=== PATIENT | female | born 1990 | race Caucasian/White ===

== ENCOUNTER 2020-07-29 20:45 | Emergency (ER) | payer SELFPAY ==
[2020-07-29 20:50] VITALS: BP 118/86; PULSE 91; RESP 20; TEMP 36.8; O2SAT 99
--- NOTE | 2020-07-29 20:53 | ED.NECK ---
HPI - Neck Pain/Injury General Chief Complaint: Neck Pain/Injury Stated Complaint: neck pain Time Seen by Provider: 07/29/20 21:05 Source: patient Mode of arrival: ambulatory Limitations: no limitations History of Present Illness HPI Narrative: 29-year-old woman comes in today complaining of left ear, jaw and neck pain that started approximately 1 week ago. Patient states that she also has no hearing in her left ear. She denies injury, fever, cough, sore throat, cold symptoms, vertigo, swelling, vomiting or injury. She states that she took some leftover cephalexin for a few days but that did not seem to help her symptoms. Patient states she has numbness of her ear canal since a child injury. her reaction to amoxicillin was a stomach ache. She denies having rash, wheezing, throat swelling, difficulty breathing or vomiting. MD complaint: neck pain Onset (ago): week(s) (1) Severity: moderate Quality: dull and aching Duration: constant Relieving factors: none Exacerbating factors: none Associated symptoms: none Treatments prior to arrival: ibuprofen and other ( Antibiotics) Related Data Allergies Allergy/AdvReac Type Severity Reaction Status Date / Time amoxicillin [From Amoxil] Allergy Unknown Verified 07/29/20 21:03 Review of Systems Constitutional: Constitutional: Denies chills, Denies fever(s) and Denies weakness ENT: Denies dysphagia, Denies nasal congestion and Denies sore throat Cardiovascular: Cardiovascular: Denies chest pain and Denies radiating jaw, neck or arm pain Respiratory: Respiratory: Denies cough and Denies dyspnea Gastrointestinal: Gastrointestinal: Denies abdominal pain and Denies vomiting Musculoskeletal: Musculoskeletal: Denies arthralgias and Denies joint swelling Integumentary/Breasts: Skin/Breast: Denies pruritus, Denies erythema and Denies rash Neurologic: Denies vertigo, Denies dizziness and Denies syncope [facility] Past Medical History Medical History (Updated 07/29/20 @ 21:22 by Evan Moore MD) History of cervical cancer Social History Social History (Updated 07/29/20 @ 21:23 by Evan Moore MD) Smoking status: Never smoker Alcohol intake: current Alcohol use details: occasionally Substance use: never Living arrangements: with family Exam Const: General: healthy appearing and alert Orientation/consciousness: patient oriented x3 Limitations: no limitations Other: mild acute distress. HENMT: Head: normal to inspection Ears: external ears normal, EAC's normal and TM abnormal bulging ( Serous effusion.) on the left Mouth: Yes moist mucous membranes Throat: posterior oropharynx normal Eyes: Conjunctivae: conjunctivae normal Pupils: Equal, round and reactive pupils present EOM: EOMs intact bilaterally Neck: Neck: normal visual inspection Other: Small, mildly tender upper anterior cervical lymph nodes that are mobile Resp: Effort & Inspection: normal respiratory effort and not labored Auscultation: clear to auscultation bilaterally, no rales, no rhonchi and no wheezes Cardio: Rate: regular rate Rhythm: regular rhythm Heart sounds: no murmurs Skin: General skin exam: normal color, no jaundice and no pallor Rashes: no rashes Neuro: General: patient oriented x3, moves all extremities and CN's II-XI intact bilaterally Speech: normal speech Gait exam (Neuro): Normal gait present Extrem: General: normal to inspection and no clubbing, cyanosis or edema Psych: Appearance: grossly normal and well kempt Mental Status: mental status grossly normal Affect: normal affect Attitude: cooperative Thought content: Yes Normal thought content present Course Vital Signs Vital signs: Vital Signs Temperature 36.8 C 07/29/20 20:50 Pulse Rate 91 07/29/20 20:50 Respiratory Rate 20 07/29/20 20:50 Blood Pressure 118/86 07/29/20 20:50 Pulse Oximetry 99 07/29/20 20:50 Temperature 36.8 C 07/29/20 20:50 Pulse Rate 91 07/29/20 20:50
[2020-07-29 21:18] VITALS: TEMP 37.1
== END 2020-07-29 21:19 | disposition home or self-care (01) ==
PROVIDERS: Emergency Provider Emergency Medicine; PCP Family Medicine
DX: H65.02 Acute serous otitis media, left ear (principal)
CPT/HCPCS: 99283

== ENCOUNTER 2023-03-14 22:59 | Emergency (ER) | payer OTHER, SELFPAY ==
[2023-03-14 23:12] VITALS: BP 123/91; PULSE 82; RESP 18; TEMP 37.1; O2SAT 100
--- NOTE | 2023-03-14 23:35 | ED.BACK ---
HPI - Back Pain/Injury General Chief Complaint: Back Pain/Injury Stated Complaint: lower flank pain Time Seen by Provider: 03/14/23 23:12 Source: patient Mode of arrival: ambulatory Limitations: no limitations History of Present Illness HPI Narrative: This is a 32-year-old female who presents with mid back pain with no known injuries no shortness of breath no nausea vomiting no flank pain or abdominal pain no shortness of breath no audible wheezing no chest pain. Pain in her midback is reproducible with palpation with no no radiation of her pain no numbness or tingling. Patient does have a small child and is quite a bit of lifting which exacerbated her midback pain. MD elicited complaint: back pain Onset (ago): day(s) Timing: intermittent Severity: moderate Pain scale (0-10): 6 Quality: aching and spasming Location: thoracic spine Radiation: none Exacerbating factors: movement Relieving factors: immobilization Context: while lifting, turning/twisting and bending Related Data Allergies Allergy/AdvReac Type Severity Reaction Status Date / Time amoxicillin [From Amoxil] Allergy Unknown Verified 07/29/20 21:03 Review of Systems Review of Systems: All systems reviewed & are unremarkable except as noted in HPI and below PMFSH Past Medical History Medical History History of cervical cancer Social History Social History Smoking status: Never smoker Alcohol intake: current Alcohol use details: occasionally Substance use: never Living arrangements: with family Exam Const: General: healthy appearing Nutritional Appearance: well nourished Orientation/consciousness: patient oriented x3 Limitations: no limitations HENMT: Head: normal to inspection Eyes: Conjunctivae: conjunctivae normal Pupils: Equal, round and reactive pupils present Neck: Neck: normal visual inspection Chest: Chest palpation & inspection: normal inspection of the chest Resp: Effort & Inspection: normal respiratory effort Auscultation: clear to auscultation bilaterally Cardio: Rate: regular rate Rhythm: regular rhythm GI: GI Palp: Yes Soft to palpation Back/Spine/Pelvis: Back: no CVA tenderness Skin: General skin exam: normal color Rashes: no rashes Neuro: General: patient oriented x3 Cranial nerves: Yes Nystagmus not present Speech: normal speech Extrem: Other: Midback pain reproducible with palpation Psych: Mental Status: mental status grossly normal Course Course Emergency Course: patient received IM Toradol and muscle relaxer IM patient's pain level has improved. Vital Signs Vital signs: Vital Signs Temperature 37.1 C 03/14/23 23:12 Pulse Rate 82 03/14/23 23:12 Respiratory Rate 18 03/14/23 23:12 Blood Pressure 123/91 H 03/14/23 23:12 Pulse Oximetry 100 03/14/23 23:12 Oxygen Delivery Room Air 03/14/23 23:12 Temperature 37.1 C 03/14/23 23:12 Pulse Rate 82 03/14/23 23:12 Respiratory Rate 18 03/14/23 23:12 Blood Pressure 123/91 H 03/14/23 23:12 Pulse Oximetry 100 03/14/23 23:12 Oxygen Delivery Room Air 03/14/23 23:12 Critical Care Time Critical Care Time Critical Care Time: No Discharge Plan Discharge Clinical Impression: Strain of lumbar region Patient Disposition: Home, Self-Care Condition: Stable Instructions: Antibiotic Form, Thoracic Back Strain (ED) Additional Instructions: Take medicine as prescribed and follow up with primary if symptoms persist or worsen. Prescriptions: New naproxen 500 mg tablet 500 mg PO BID PRN (Reason: pain) Qty: 14 0RF cyclobenzaprine 5 mg tablet 5 mg PO TID PRN (Reason: muscle spasm) Qty: 20 0RF Follow-up/Referrals: Shirley,MD Delmar [Primary Care Provider] - Time of Disposition: 23:40
[2023-03-14] MEDS: KETOROLAC (*BKC) 60 MG/2 ML VIAL IM (23:36)
[2023-03-14] MEDS: ORPHENADRINE CITRATE 30 MG/ML 2 ML VIAL 60 MG IM (23:36)
[2023-03-15 00:05] VITALS: BP 103/79; PULSE 74; RESP 18; TEMP 36.8; O2SAT 99
== END 2023-03-15 00:06 | disposition home or self-care (01) ==
PROVIDERS: Emergency Provider Emergency Medicine; PCP Family Medicine
DX: S39.012A Strain of muscle, fascia and tendon of lower back, initial encounter (principal); X50.0XXA Overexertion from strenuous movement or load, initial encounter
CPT/HCPCS: 96372; 99284; J1885; J2360

== ENCOUNTER 2023-04-07 20:49 | Emergency (ER) | payer OTHER, SELFPAY ==
--- NOTE | ~2023-04-07 | CT_ITS ---
EXAMINATION: CT abdomen pelvis wo con DATE: 04/07/2023 21:49 INDICATION: Abdominal bloating. Diarrhea. TECHNIQUE: Computed tomography (CT) of the abdomen and pelvis was performed without intravenous contr ast. Automated exposure control and iterative reconstruction technique were employed. The dose-length product was 319.60 mGy-cm. COMPARISON: None. FINDINGS: The visualized portions of the lung bases are clear without pneumonia or pleural effusion. The heart size is normal. No pericardial effusion. The liver and spleen are normal. The gallbladder i s contracted. The pancreas, adrenal glands, and kidneys are normal. There are no dilated loops of bow el. The appendix is not visualized. There are no pathologically enlarged lymph nodes. There is no lisa e intraperitoneal fluid. There is mild thoracic spondylosis. IMPRESSION: 1. No etiology for the patient's symptoms. Reviewed, dictated and finalized at location E.
[2023-04-07 20:53] VITALS: BP 129/90; PULSE 70; RESP 20; TEMP 37.2; O2SAT 100
--- NOTE | 2023-04-07 21:16 | ED.GENADULT ---
HPI - General Adult General Chief complaint: Unspecified Stated complaint: Abd Bloating Time Seen by Provider: 04/07/23 20:53 Source: patient Mode of arrival: ambulatory Limitations: no limitations History of Present Illness HPI narrative: patient is a 32-year-old female with abdominal bloating and distended lower abdomen for the past week. She has associated abdominal pain which started yesterday in the right upper quadrant. And for the past week she has also had some nausea. Onset (ago): week(s) (1) Location: abdomen Radiation: non-radiation Severity: mild and moderate Severity scale (1-10): 4 Quality: aching and sharp Pain Consistency: intermittent Relieving factors: none Exacerbating factors: none Associated symptoms: nausea/vomiting Treatments prior to arrival: none Related Data Home Medications Medication Instructions Recorded Confirmed No Home Medications 04/07/23 04/07/23 Allergies Allergy/AdvReac Type Severity Reaction Status Date / Time amoxicillin [From Amoxil] Allergy Unknown Verified 07/29/20 21:03 Review of Systems Review of Systems: All systems reviewed & are unremarkable except as noted in HPI and below Constitutional: Constitutional: Reports no additional constitutional complaints Eyes: Eyes: Reports no additional eye complaints ENT: Reports system reviewed and no additional complaints, except as documented Cardiovascular: Cardiovascular: Reports no additional cardiovascular complaints Respiratory: Respiratory: Reports no additional respiratory complaints Gastrointestinal: Gastrointestinal: Reports no additional gastrointestinal complaints Genitourinary: Genitourinary: Reports no additional female genitourinary complaints Musculoskeletal: Musculoskeletal: Reports no additional musculoskeletal complaints Integumentary/Breasts: Skin/Breast: Reports system reviewed and no additional complaints, except as docu Neurologic: Reports system reviewed and no additional complaints, except as documented Psychiatric: Psychiatric: Reports no additional psychiatric complaints Endocrine: Endocrine: Reports no additional endocrine complaints Hematologic/Lymphatic: Hematologic/Lymphatic: Reports no additional hematologic/lymphatic complaints Allergic/Immunologic: Allergic/Immunologic: Reports no additional allergic/immunologic complaints [facility] Past Medical History Medical History History of cervical cancer Social History Social History Smoking status: Never smoker Alcohol intake: current Alcohol use details: occasionally Substance use: never Living arrangements: with family Exam Const: General: cooperative, healthy appearing and comfortable HENMT: Head: normal to inspection, No palpable skull fracture present and normocephalic Eyes: General: appearance normal, both eyes and all related structures Visual Reynaga: normal visual reynaga by confrontation Alignment and Position: alignment normal Neck: Neck: normal visual inspection, full ROM and no lymphadenopathy Chest: Chest palpation & inspection: normal inspection of the chest and normal palpation of entire chest wall Resp: Effort & Inspection: normal respiratory effort and able to speak in complete sentences Auscultation: clear to auscultation bilaterally Cardio: Jugular venous distension: no JVD Palpation: normal PMI Rate: regular rate Rhythm: regular rhythm Heart sounds: S1 normal heart sound present and S2 normal heart sound present GI: Inspection: abnormal to inspection, no abdominal wall ecchymosis, distended, striae and other ( distended abdomen with some striae) GI Palp: Yes abdominal tenderness ( Right upper quadrant; negative Thornton sign), No Abdominal aortic bruit present, No Hepatomegaly present and No Splenomegaly present Auscultation: normal bowel sounds Back/Spine/Pelvis: Back: no CVA tenderne
[2023-04-07 21:25] LABS: Basophils Absolute Auto 0.01 K/mm3 (0.00-0.10); Basophils Percent Auto 0.1 % (0.0-1.0); Eosinophils Absolute Auto 0.12 K/mm3 (0.02-0.50); Eosinophils Percent Auto 1.5 % (1.0-6.0); Hematocrit 40.7 % (35.0-49.0); Hemoglobin 13.3 g/dL (12.0-15.0); Immature Granulocyte Absolute 0.02 K/mm3 (0.00-0.00); Immature Granulocyte Percent A 0.2 % (0.0-0.0); Lymphocytes Absolute Auto 2.98 K/mm3 (1.10-4.50); Lymphocytes Percent Auto 37.2 % (18.0-42.0); Mean Corpuscular HGB Conc 32.7 g/dL (32.0-36.0); Mean Corpuscular Hemoglobin 28.4 pg (27.0-31.0); Mean Corpuscular Volume 86.8 fL (78.0-102.0); Mean Platelet Volume 9.7 fl (9.2-11.8); Monocytes Absolute Auto 0.56 K/mm3 (0.10-0.90); Neutrophils Absolute Auto 4.3 K/mm3 (1.7-7.2); Platelet Count Result 340 K/mm3 (150-420); Red Blood Count 4.69 M/mm3 (4.20-5.40); Red Cell Distribution Width 12.6 % (11.6-14.4)
[2023-04-07 21:26] LABS: Appearance Urine Clear (Clear); Bilirubin Urine Negative (Negative); Blood Urine Negative (Negative); Color Urine Light Yellow (Yellow); Glucose Urine UA Negative (Negative); Ketones Urine Negative (Negative); Leukocyte Esterase Ur Negative LEU/UL (Negative); Nitrate Urine Negative (Negative); Protein Urine Negative (Negative); Specific Grav Ur <= 1.005 (1.010-1.020); Urobilinogen Urine 0.2 mg/dL (0.2-1.0)
[2023-04-07 21:27] LABS: Add Urine Microscopic? NO
[2023-04-07 21:29] LABS: Pregnancy On Board Control Y; Urine Pregnancy Test Negative
[2023-04-07 21:40] LABS: Alanine Aminotransferase 14 U/L (14-59); Albumin Level 3.7 g/dL (3.4-5.0); Alkaline Phosphatase 85 U/L (46-116); Anion Gap 9 mmol/L (8-16); Aspartate Amino Transferase < 10 U/L (15-37); Bilirubin,Total 0.2 mg/dL (0.00-1.00); Blood Urea Nitrogen 14 mg/dL (7-18); Calcium 9.6 mg/dL (8.5-10.1); Carbon Dioxide 28 mmol/L (21-32); Chloride 103 mmol/L (98-108); Estimated CRCL calculation 80 ml/min; Estimated Glomerular Filt Rate > 60; Glucose 95 mg/dL (70-99); Lipase 40 U/L (16-77); Osmolality Calculated 290 mOsm/kg (285-295); Potassium 3.9 mmol/L (3.5-5.1); Sodium 140 mmol/L (136-145); Total Protein 6.9 g/dL (6.4-8.2)
[2023-04-07 21:47] LABS: INR 0.9; Partial Thromboplastin Time 27.5 SEC (23.90-30.70); Prothrombin Time 10.2 Seconds (9.50-12.10)
[2023-04-07 22:20] VITALS: BP 129/88; PULSE 72; RESP 20; TEMP 36.6; O2SAT 98
== END 2023-04-07 22:23 | disposition home or self-care (01) ==
PROVIDERS: Emergency Provider Emergency Medicine; PCP Family Medicine
DX: R10.11 Right upper quadrant pain (principal); Z85.41 Personal history of malignant neoplasm of cervix uteri
CPT/HCPCS: 36415; 74176; 80053; 81003; 81025; 83690; 85025; 85610; 85730; 99284

== ENCOUNTER 2024-11-07 18:04 | Emergency (ER) | payer BC, MEDICAID, SELFPAY ==
--- NOTE | ~2024-11-07 | XR_ITS ---
CHEST RADIOGRAPH, PA AND LATERAL CLINICAL HISTORY: FEVER, dizzy, 2 weeks ago . COMPARISON: None available TECHNIQUE: PA and lateral views of the chest. FINDINGS The cardiomediastinal silhouette is unremarkable. The lungs are clear. IMPRESSION: No focal infiltrate or effusion. Reviewed, dictated and finalized at location A.
[2024-11-07 18:04] VITALS: BP 107/85; PULSE 117; RESP 17; TEMP 36.4; O2SAT 97
--- OUTSIDE RECORDS SUMMARY | 2024-11-07 18:06 | XMS_ITS | Clinical Summary ---
Author Organization [facility] Address [address] [place] [id number] Care Team Providers Care Sales And Production Manager Name Role Phone Delmar Watson MD Primary Care Provider Allergies Active Allergy Reactions Criticality Noted Date Comments Hydrocodone-Acetaminophen Nausea Only 9 tired Medications polyethylene glycol (GLYCOLAX) packet Take 240 mLs (17 g total) by mouth daily for 14 days. Dissolve powder in 240 mL water 14 packet 5 11/10/19 25 Active Ferrous Gluconate (FERGON) 240 (27 Fe) MG Tab Take by mouth 10/27/19 25 Discontinue d(Stop Taking at Discharge) vitamin D2, ergocalciferol, (DRISDOL) 1.25 mg capsule Take 1 capsule (1.25 mg total) by mouth. 10/27/19 25 Discontinue d(Stop Taking at Discharge) multi vitamin/mineral s (THERA-M ENHANCED) tablet Take 1 tablet by mouth daily. 10/27/19 25 Discontinue d(Stop Taking at Discharge) vitamin, low iron, ( VITAMIN WITH IRON) 27-0.8 MG tablet Take 1 tablet by mouth daily. 10/27/19 25 Discontinue d(Stop Taking at Discharge) docusate sodium (COLACE) 100 MG capsule Take 1 capsule (100 mg total) by mouth 2 (two) times daily for 10 days. 20 capsule 5 11/06/19 25 acetaminophen (TYLENOL) 325 MG tablet Take 2 tablets (650 mg total) by mouth every 6 (six) hours as needed for Pain. 60 tablet 5 11/06/19 25 ketorolac (TORADOL) 10 MG tablet Take 1 tablet (10 mg total) by mouth every 6 (six) hours as needed for Pain. 12 tablet 5 10/30/19 25 Active Problems Problem Noted Date Diagnosed Date ([facility]) 10/24/2024 Encounters Date Type Department Care Team Description 10/24/2024 2:53 PM CDT Anesthesia Event [facility] Labor & Delivery [address] [place] [address] Sal Montejo MD 10/24/2024 2:00 PM CDT - 10/24/2024 3:13 PM CDT Surgery [facility] Labor & Delivery [address] [place] [address] Monalisa Cid MD SECTION 10/24/2024 12:03 PM CDT - 10/26/2024 2:13 PM CDT Hospital Encounter [facility] Women & Infants [address] [place] [address] Monalisa Cid MD Discharge Disposition: Home or Self Care (Routine Discharge) 10/24/2024 Travel 08/29/2024 10:57 AM LAWN CARE TECHNICIAN - 08/29/2024 12:39 PM LAWN CARE TECHNICIAN Hospital Encounter [facility] [address] [facility] [place] [address] Guanakito Bangura MD Discharge Disposition: Home or Self Care (Routine Discharge) from Last 3 Months Social History Tobacco Use Types Packs/Day Years Used Date Smoking Tobacco: Former Cigarettes Q uit: 02/06/2019 Smokeless Tobacco: Never Tobacco Cessation:Counseling Given: Not Answered Alcohol Use Standard Drinks/Week Comments No 0 (1 standard drink = 0.6 oz pur e alcohol) AUDIT-C Answer Date Recorded Frequency of Alcohol Consumption Never 02/10/2019 Average Number of Drinks Not on file 019 Frequency of Binge Drinking Not on file 02/2019 Depression Answer Date Recor ded Last EPDS Total Score 0 10/26/2024 Last EPDS Self Harm Result Never 10/26 Comments No Sex and Gender Information Value Date Recorded Sex Assigned at Female 2024 6:18 AM LAWN CARE TECHNICIAN Legal Sex Female 10:12 PM LAWN CARE TECHNICIAN Gender Identity Female 10/24/2024 1:57 PM CDT Sexual Orientation Not on file Last Filed Vital Signs Vital Sign Reading Time Taken Comments Blood Pressure 90/51 10/26/2024 1:02 PM CDT Pulse 83 10/26/2024 1:02 PM CDT Temperature 35.9 C (96.6 F) 10/26/2024 1:03 PM CDT Respiratory Rate 18 10/26/2024 1:03 PM CDT Oxygen Saturation 98% 10/26/2024 1:03 PM CDT Inhaled Oxygen Concentration - - Weight 87.5 kg (193 lb) 10/24/2024 1:54 PM CDT Height 165.1 cm (5' 5 ) 10/24/2024 1:54 PM CDT Body Mass Index 32.12 10/24/2024 1:54 PM CDT Plan of Treatment Health Maintenance Due Date Last Done Comments Cervical Cancer Screening Pap Smear (Age 30 to 64) Every 3 Years 1992 Annual Physical 1995 Hepatitis B Vaccines (1 of 3 - 19+ 3-dose series) 2011 Cervical Cancer Screening Pap with HPV Testing (Age 30 to 64) Every 5 Years 2022 Cervical Cancer Screening with HPV 2022 COVID-19 Vaccine ( season) 2024 DTaP, Tdap and Td Vaccines (3 - Td or Tdap) 03/17/2032 03/17/2022, 08/17/1996, 08/13/1993, Additional history exists Hepatitis C Completed 12/24/2021 HPV Vaccines Aged Out No longer eligi ble based on patient's age to complete this topic Meningococcal B Vaccine Aged Out No l onger eligible based on patient's age to complete this topic Meningococcal Vaccine Aged Out No edelmira rebecca eligible based on patient's age to complete this topic Pneumococcal Vaccine: Pediatrics (0 to 5 Years) and At-Risk Patients (6 to 49 Years) Aged Out No longer eligible based on patient's age to complete this topic RSV Immunizations Under 20 Months Aged Out No longer eligible based on patient's age to complete this topic Procedures Procedure Name Priority Date/Time Associated Diagnosis Comments CBC, AUTO, NO DIFF Routine 10/25/2024 5: 38 AM CDT RHOGAM Routine 10/24/2024 6:5 1 PM CDT AN SPINAL Routine 10/24/2024 3:01 PM CDT SECTION 10/24/2024 2:53 PM CDT PRGNANCY - REPEAT C/SECTION @ 39W2 TYPE & SCREEN STAT 10/24/2024 12:54 PM CDT SYPHILIS AB (DIAGNOSTIC) WITH CASCADING REFLEX STAT 10/24/2024 12:54 PM CDT CBC W/DIFF AUTOMATED Routine 10/24/2024 12:54 PM CDT PLACENTAL ALPHA MICROGLOBULIN-1 Routine 08/29/2024 11:22 AM LAWN CARE TECHNICIAN Trauma during (HHS/HCC) HC URINALYSIS AUTO W/MICRO STAT 08/29/2024 11:13 AM LAWN CARE TECHNICIAN Trauma during ([facility]/HCC) from Last 3 Months Results * (ABNORMAL) CBC, AUTO, NO DIFF (10/25/2024 5:38 AM CDT) WBC 10.29 4.00 - 10.80 x10'3/uL 10/25/2024 5:56 AM CDT [facility] RBC 3.56(L) 4.10 - 5.40 x10'6/uL 10/25/2024 5:56 AM CDT [facility] HGB 9.3(L) 12.0 - 16.0 G/DL 10/25/2024 5:56 AM CDT [facility] HCT 29.6(L) 36.0 - 47.0 % 10/25/2024 5:56 AM CDT [facility] MCV 83.1 78.0 - 100.0 FL 10/25/2024 5:56 AM CDT [facility] MCH 26.1(L) 27.0 - 31.0 PG 10/25/2024 5:56 AM CDT [facility] MCHC 31.4(L) 33.0 - 36.0 G/DL 10/25/2024 5:56 AM CDT [facility] RDW 16.4(H) 11.5 - 14.5 % 10/25/2024 5:56 AM CDT [facility] PLT 220 150 - 350 x10'3/uL 10/25/2024 5:56 AM CDT [facility] MPV 11.3(H) 7.4 - 10.4 FL 10/25/2024 5:56 AM CDT [facility] 10/25/2024 5:38 AM CDT Rachelle Márquez MD LABORATORY Final Result Performing Organization Address City/[facility] Co de Phone Number [facility] [address] [place] [address], [phone] * RHOGAM (10/24/2024 6:51 PM CDT) [facility] ESTIMATED VOL NEGATIVE - 300 mcg OF Rh IMMUNE GLOBULIN INDICATED. 10/24/2024 7:38 PM CDT [facility] BB COMMENT [id number] RN, 10/24/2024 @ 19:28, DSQ 10/24/2024 7:38 PM CDT [facility] 10/24/2024 6:51 PM CDT Monalisa Cid MD BLOOD BANK PRODUCT ORDER LUIS Final Result Performing Organization Address [facility] Co de Phone Number [facility] [address] [place] [address], [phone] * Spinal Block (10/24/2024 3:01 PM CDT) Narrative Marjorie Culp CRNA - 10/24/2024 3:01 PM CDT Marjorie Culp CRNA 10/24/2024 3:32 PM Spinal Block Patient location during procedure: OR Start time: 10/24/2024 3:01 PM End time: 10/24/2024 3:08 PM Reason for block: primary anesthetic Staffing Performed: ENT PHYSICIAN Anesthesiologist: Sal Montejo MD Resident/ENT PHYSICIAN: Marjorie Culp CRNA Performed by: Marjorie Culp CRNA Authorized by: Sal Montejo MD Preanesthetic Checklist Completed: patient identified, IV checked, site marked, risks and benefits discussed, surgical consent, monitors and equipment checked, pre-op evaluation and timeout performed Spinal Block Patient position: sitting Prep: ChloraPrep Sterility prep: cap, drape, gloves, gown, hand hygiene and mask Sedation level: no sedation Patient monitoring: blood pressure, continuous pulse oximetry and heart rate Approach: midline Location: L3-4 Injection technique: single-shot Needle Needle type: pencil-tip Needle gauge: 25 G Needle length: 3.5 in Assessment Sensory level: T4 Number of attempts: 1 Procedure assessment: patient tolerated procedure well with no immediate complications Additional Notes All spinal needles, stylets, and introducer used were accounted for and disposed of at the end of the procedure. Sal Montejo MD [place] ANESTHESIA Final Result * SYPHILIS IGG/IGM AB (10/24/2024 12:54 PM CDT) SYPHILIS IGG IGM AB NON-REACTI VE NON-REACTI VE 10/24/2024 6:19 PM CDT [facility] Comment: No serologic evidence of syphilis. No follow-up necessary unless clinically indicated. 10/24/2024 12:5 4 PM CDT Rachelle Márquez MD LABORATORY Final Result [facility] [address] [place] [address], [phone] * TYPE & SCREEN (10/24/2024 12:54 PM CDT) [facility] ABO/RH O NEGATIVE 10/24/2024 2:31 PM CDT [facility] ANTIBODY SCREEN NEGATIVE 10/24/2024 2:31 PM CDT [facility] SAMPLE EXPIRATION 10/27/2024,235 9 10/24/2024 1:52 PM CDT [facility] BB COMMENT PATIENT HAS PREVIOUS ANTIBODY HISTORY WITH CURRENT NEGATIVE SCREEN. COMPATIBLE BLOOD WILL TAKE EXTRA TIME TO PREPARE. PATIENT IS AN RH IMMUNE GLOBULIN CANDIDATE 10/24/2024 4:39 PM CDT [facility] 10/24/2024 12:5 4 PM CDT us Rachelle Márquez MD BLOOD BANK TEST ORDERABLES F inal Result [facility] [address] [place] [address], [phone] * (ABNORMAL) CBC W/DIFF AUTOMATED (10/24/2024 12:54 PM CDT) [facility] WBC 7.44 4.00 - 10.80 x10'3/uL 10/24/2024 2:06 PM CDT [facility] RBC 4.31 4.10 - 5.40 x10'6/uL 10/24/2024 2:06 PM CDT [facility] HGB 11.2(L) 12.0 - 16.0 G/DL 10/24/2024 2:06 PM CDT [facility] HCT 35.4(L) 36.0 - 47.0 % 10/24/2024 2:06 PM CDT [facility] MCV 82.1 78.0 - 100.0 FL 10/24/2024 2:06 PM CDT [facility] MCH 26.0(L) 27.0 - 31.0 PG 10/24/2024 2:06 PM CDT [facility] MCHC 31.6(L) 33.0 - 36.0 G/DL 10/24/2024 2:06 PM CDT [facility] RDW 16.0(H) 11.5 - 14.5 % 10/24/2024 2:06 PM CDT [facility] PLT 248 150 - 350 x10'3/uL 10/24/2024 2:06 PM CDT [facility] MPV 11.2(H) 7.4 - 10.4 FL 10/24/2024 2:06 PM CDT [facility] DIFFERENTIAL TYPE AUTOMATED DIFFERENTIAL 10/24/2024 2:06 PM CDT [facility] SEG NEUTROPHILS 71.8 % 2:06 PM CDT [facility] LYMPHOCYTES 21.0 % 10/24/2024 2:06 PM CDT [facility] MONOCYTES 5.9 % 10/24/2024 2:06 PM CDT [facility] EOSINOPHILS 0.1 % 10/24/2024 2:06 PM CDT [facility] BASOPHILS 0.3 % 10/24/2024 2:06 PM CDT [facility] IMMATURE GRANS % 0.9 % 10/25/19 2:06 PM CDT [facility] ABS. NEUTROPHILS 5.34 1.60 - 8.30 x10'3/uL 10/24/2024 2:06 PM CDT [facility] ABS. LYMPHOCYTES 1.56 0.80 - 4.70 x10'3/uL 10/24/2024 2:06 PM CDT [facility] ABS. MONOCYTES 0.44 0.00 - 1.50 x10'3/uL 10/24/2024 2:06 PM CDT [facility] ABS. EOSINOPHILS 0.01 0.00 - 0.40 x10'3/uL 10/24/2024 2:06 PM CDT [facility] ABS. BASOPHILS 0.02 0.00 - 0.20 x10'3/uL 10/24/2024 2:06 PM CDT [facility] ABS. IMMATURE GRANULOCYTES 0.07(H) 0.00 - 0.03 x10'3/uL 10/24/2024 2:06 PM CDT [facility] ABS. NUCLEATED RBC'S 0.00 0.00 - 0.01 x10'3/uL 10/24/2024 2:06 PM CDT [facility] NRBC % 0.0 % 10/24/2024 2:06 PM CDT [facility] 10/24/2024 12:5 4 PM CDT Rachelle Márquez MD LABORATORY Final Result Performing Organization Address City/[facility]/ZIP Co de Phone Number [facility] [address] [place] [address], [phone] * PLACENTAL ALPHA MICROGLOBULIN-1 (08/29/2024 11:22 AM LAWN CARE TECHNICIAN) RUPTURE OF MEMBRANES NEGATIVE 08/29/2024 12:03 PM LAWN CARE TECHNICIAN [facility] VAGINAL STRUCTURE / Unknown 08/29/2024 11:22 AM LAWN CARE TECHNICIAN Guanakito Bangura MD BODY FLUIDS AND STOOLS ORDERA BLES Final Result [facility] [address] [place] [address], [phone] * (ABNORMAL) URINALYSIS (08/29/2024 11:13 AM LAWN CARE TECHNICIAN) COLOR (U) YELLOW 08/29/2024 11:53 AM LAWN CARE TECHNICIAN [facility] TRANSPARENCY CLEAR 08/29/2024 11:53 AM LAWN CARE TECHNICIAN [facility] SPECIFIC GRAVITY (U) 1.010 1.000 - 1.025 08/29/2024 11:53 AM LAWN CARE TECHNICIAN [facility] U PH 6.5 5.0 - 8.0 08/29/2024 11:53 AM LAWN CARE TECHNICIAN [facility] LEUKOCYTES (U) NEGATIVE NEGATIVE 08/29/2024 11:53 AM LAWN CARE TECHNICIAN [facility] NITRITES NEGATIVE NEGATIVE 08/29/2024 11:53 AM LAWN CARE TECHNICIAN [facility] PROTEIN RANDOM (U) NEGATIVE NEGATIVE 08/29/2024 11:53 AM LAWN CARE TECHNICIAN [facility] GLUCOSE (U) NEGATIVE NEGATIVE 08/29/2024 11:53 AM LAWN CARE TECHNICIAN [facility] KETONES MG/DL (U) NEGATIVE NEGATIVE 08/29/2024 11:53 AM LAWN CARE TECHNICIAN [facility] UROBILINOGEN 0.2 <1.0 EU/DL 08/29/2024 11:53 AM LAWN CARE TECHNICIAN [facility] BILIRUBIN (U) NEGATIVE NEGATIVE 08/29/2024 11:53 AM LAWN CARE TECHNICIAN [facility] BLOOD (U) NEGATIVE NEGATIVE 08/29/2024 11:53 AM LAWN CARE TECHNICIAN [facility] WBC/HPF NONE SEEN(A) 0 - 5 /HPF 08/29/2024 11:53 AM LAWN CARE TECHNICIAN [facility] EPI/LPF 5-10 /LPF 08/29/2024 11:53 AM LAWN CARE TECHNICIAN [facility] BACTERIA (U) 1+ /HPF 08/29/2024 11:53 AM LAWN CARE TECHNICIAN [facility] URINE SPECIMEN OBTAINED BY CLEAN CATCH PROCEDURE / Unknown 08/29/2024 11:13 AM LAWN CARE TECHNICIAN Guanakito Bangura MD URINE ORDERABLES Final Result [facility] [address] [place] [address], from Last 3 Months Insurance MEDICAID [facility] Advance Directives * Full Code (Latest Code Status on File) Date Activated Date Inactivated Comments 10/24/2024 4:51 PM 10/26/2024 4:18 PM Care Teams Sales And Production Manager Relationship Specialty Start Date End Date Delmar Watson MD [address] [place] [address] [phone] PCP - General FAMILY PRACTICE 01/25/19
--- OUTSIDE RECORDS SUMMARY | 2024-11-07 18:06 | XMS_ITS | Data Portability ---
Author Organization [facility], [address] [facility] ([place]) Address [address] [place] [address] Care Team Providers Care Production Tool Engineer Name Role Phone CLAUDIA PAL Primary Care Provider WES LEYVA Artificial Leather Calender Operator LAIAL MCCLAIN Hand Splitter MONALISA RAMIREZ Artificial Leather Calender Operator Assessment Encounter Date Assessment Date Assessment LastModified by Organization Details LastModified Time 09/27/2024 09/27/2024 1.LAURI: Patient has no OB complaints. Continue PNV QD. Strict labor precautions and strict kick counts were given. RTC in 1 week for LAURI visit with growth ultrasound and GBS swab or sooner if needed. whit Not available 09/27/2024 13:16:32 10/04/2024 10/04/2024 1.LAURI: Patient does complain of some scant dark black discharge with wiping only this morning, patient states that she did have intercourse 3 days ago and did have an episode of diarrhea with nausea and vomiting and GI bug on Thursday and Thursday. She does have a hemorrhoid. She denies any active bleeding, contractions or pain. On sterile speculum examination today the cervix is normal however there is a small 2 to 3 mm polyp noted on the inferior portion of the cervical edge to that vagina that is nonfriable and nontender. There are no cervical masses, lesions. There is no blood, no pooling, no discharge and the cervix is visually closed. There is a small external hemorrhoid noted. On digital examination the cervix is closed/long/high . GBS swab collected today. Patient has no other OB complaints. Growth ultrasound today EFW 40.2%, 2809 g. Continue PNV QD. Strict labor precautions and strict kick counts were given. RTC in 1 week for LAURI visit or sooner if needed. [email or web address] Not available 10/06/2024 12:10:16 10/10/2024 10/10/2024 1.LAURI: Patient complains of intermittent contractions. Cervix is closed/long/high . GBS swab negative. Patient has no other OB complaints. Continue PNV QD. Strict labor precautions and strict kick counts were given. RTC in 1 week for LAURI visit or sooner if needed. [email or web address] Not available 10/10/2024 18:03:29 10/20/2024 10/20/2024 1.LAURI: Patient complains of intermittent contractions. Cervix is closed/long/high . Patient has no other OB complaints. Continue PNV QD. Strict labor precautions and strict kick counts were given. RTC in 1 week for incision check from 10/24 at [facility] or sooner if needed. [email or web address] Not available 10/22/2024 12:02:58 11/01/2024 11/01/2024 1. incision check: - s/p repeat section on 10/24/2024 @ 39 weeks 2 days. - Delivery note, discharge summary and placental pathology discussed with patient. - Patient had a baby les Mishra , weight 7 pounds 13 ounces, Apgars 8/9. - Mom and baby are doing well. - EPDS = 0. Mood is good patient has no homicidal or suicidal ideation. Patient was advised to call 911 if she has homicidal suicidal ideation. Patient voiced understanding. - Patient is meeting all of her milestones. - Patient is breast feeding without difficulty. She has no breast complaints. - Pfannenstiel incision healing well. No signs or symptoms of infection or dehiscence. - Glucola 145 with normal 3-hour oral glucose tolerance test. - Pap smear 02/10/2024 negative cytology, negative high-risk HPV.. - GCCT 03/11/2024 negative. - Hep C Screenin03/11/2024 nonreactive. - HPV vaccine series none. - Contraception: Patient is considering Depo versus Nexplanon at her next visit. - Patient counseled on and postoperative precautions and restrictions. Patient voiced understanding. - RTC in 5 weeks for full visit or sooner if needed. [email or web address] Not available 11/01/2024 17:48:51 Plan of Treatment Reminders Order Date Submit Date Provider Last Modified By Organization Details Last Modified Time Details Appointments Post Visit 20.EST 2024 12:40P M Dr. Monalisa Ramirez Not available Not available Not available Lab urinalys is, dipstick 2024 025 [facility]), [address] [place] [address], [phone], 10/20/2024 13:45:25 urinalys is, dipstick [address] [facility] ([place]), [address] [place] [address], [phone], 10/10/2024 14:25:34 urinalys is, dipstick [address] [facility] ([place]), [address] [place] [address], [phone], 10/04/2024 13:46:09 streptoc occus agalacti ae DNA, QL, SIMONA+prob e, vag+rect um 2024 025 [facility], [address] [place] [address], [phone], 10/05/2024 15:29:16 urinalys is, dipstick 2024 025 [facility] ([place]), [address] [place] [address], [phone], 09/27/2024 13:41:26 Referral None recorded . Procedures None recorded . Surgeries None recorded . Imaging None recorded . Medication Orders None recorded . Patient TargetsNo targets recorded. Patient InstructionsNo instructions recorded. Reason for Referral None Reported. Results Created Date Observation Date Name Description Value Unit Range Abnormal Flag Note LastModifiedBy Organization Detail LastModifiedTime 09/14/1909/13/2024 urina lysis , dipst ick Protein Negati ve Not Available [facility] [address] [place] [address], [place], [address], 09/09/2024 10:55:22 09/14/19 25 09/13/2024 urina lysis , dipst ick Glucose Negati ve Not Available [facility] [address] [place] [address], [place], [address], 09/09/2024 10:55:22 09/21/19 25 09/20/2024 urina lysis , dipst ick Protein Negati ve Not Available [facility] [address] [place] [address], [place], [address], 09/15/2024 12:38:26 09/21/19 25 09/20/2024 urina lysis , dipst ick Glucose Negati ve Not Available [facility] [address] [place] [address], [place], [address], 09/15/2024 12:38:26 09/28/19 25 09/27/2024 urina lysis , dipst ick Protein Negati ve Not Available [facility] [address] [place] [address], [place], [address], 09/23/2024 16:15:53 09/28/19 25 09/27/2024 urina lysis , dipst ick Glucose Negati ve Not Available [facility]) [address] [place] [address], [place], [address], 09/23/2024 16:15:53 10/05/19 25 10/05/2024 strep tococ cus agala ctiae DNA, QL, SIMONA+p robe, vag+r ectum group B strep; DNA probe NEGATI VE negati ve No Group B Strep tococ ci (S. agala ctiae ) detec shelby. Testi ng perfo rmed using PCR after PENA broth enric hment . A negat herber resul t does not rule out the possi bilit y of GBS colon izati on. False negat herber resul ts may occur when the GBS jessa ntrat ion in the speci men is below the detec table limit , inter preta tion shoul d consi shauna relev ant clini [facility]ernardo xt. Not Available [facility] [address] [place] [address], [id number], 10/05/2024 15:29:16 10/05/19 25 10/04/2024 urina lysis , dipst ick Protein Negati ve Not Available [facility]) [address] [place] [address], [address], 09/30/2024 15:29:37 10/05/19 25 10/04/2024 urina lysis , dipst ick Glucose Negati ve Not Available [facility] ([place]) [address] [place] [address], [address], 09/30/2024 15:29:37 10/11/19 25 10/10/2024 urina lysis , dipst ick Protein Negati ve Not Available [facility] ([facility]) [address] [place] [address], [place], [address], 10/10/2024 13:13:10 10/11/19 25 10/10/2024 urina lysis , dipst ick Glucose Negati ve Not Available [facility] ([facility]) [address] [place] [address], [address], 10/10/2024 13:13:10 10/21/19 25 10/20/2024 urina lysis , dipst ick Protein Negati ve Not Available [facility]) [address] [place] [address], [address], 10/18/2024 16:11:18 10/21/19 25 10/20/2024 urina lysis , dipst ick Glucose Negati ve Not Available [facility] ([facility]) [address], [place], [address], 10/18/2024 16:11:18 09/01/19 25 08/31/2024 , echoc ardio [facility] [address] [place], [place] [address] [address] Ph: [phone] [email or web address] Echoca rdiogr am Report Name: Lori Bhakta Study Date: 2024 : 1990 6[birth year] Gender : Female Age: 34 yrs Height : 65 in Weight : 190 lb BSA: 1.9 m2 Orderi ng Physic jef: Laila Mcclain Perfor med By: Jackelin Santo ry, RDCS Reason For Study: Tachyc ardia R00.0 Patien t Locati on: CARDIO LOGY Indica tion: 32 weeks pregna nt BP: 124/83 mmHg Interp retati on Summar y Left ventri cular systol ic functi on is normal . Left Ventri cular Ejecti on Fracti on = 62 %. The right ventri cathy is normal in size and functi on. There is trace mitral regurg itatio n. PROCED URE DETAIL S: A comple te transt horaci c echoca rdiogr am was perfor med (2D; M-mode ; spectr al and color flow Dopple r). The study was techni adrian adequa te. LEFT VENTRI CATHY: The left ventri cathy size and wall thickn ess are normal . The left ventri cular mass index is normal when correc shelby for BSA and gender . Left ventri cular systol ic functi on is normal . Left Ventri cular Ejecti on Fracti on = 62 %. The left ventri cular diasto logy is indete rminat e. No region al wall motion abnorm alitie s noted. LEFT ATRIUM /ATRIA L SEPTUM : The left atrial volume index is normal by BSA and gender . No eviden ce for atrial shunti ng by color Dopple r. echode nsity in left atrium likely artifa ctual. consid er furthe r imagin g if clinic ally indica shelby. RIGHT ATRIUM : The right atrial volume index is normal when correc shelby for BSA and gender . RIGHT VENTRI CATHY: TAPSE is normal at 2.2 cm (> or =1.7cm is normal ). The right ventri cathy is normal in size and functi on. AORTIC VALVE: The aortic valve is trilea flet. There is no eviden ce of aortic stenos is. There is no aortic regurg itatio n noted. MITRAL VALVE: There is trivia l mitral valve thicke ethan. There is no mitral valve stenos is. There is trace mitral regurg itatio n. TRICUS PID VALVE: The tricus pid valve leafle ts are thin and pliabl e. There is no tricus pid stenos is. There is trace tricus pid regurg itatio n. Estima shelby right atrial pressu re is 3 mmHg. Due to an incomp lete tricus pid regurg itatio n envelo pe the right ventri cular systol ic pressu re could not be estima shelby. PULMON IC VALVE: The pulmon ic valve is not well visual ized howeve r appear s grossl y normal . There is no pulmon ic valvul ar stenos is. There is trace pulmon ic valvul ar regurg itatio n. ARTERI ES: The sinus( es) of Valsal va measur es 3.1 which is within normal limits when correc shelby for BSA and age. The ascend ing aorta measur es 3.0 cm, which is within normal limits when correc shelby for BSA and gender . The pulmon augusta artery is normal size. VENOUS : The pulmon augusta vein flow patter ns appear normal . The inferi or vena cava is normal in size, with normal respir atory variat ion. PERICA RDIUM/ PLEURA : There is no perica rdial effusi on seen. There is no pleura l effusi on. MMode/ 2D Measur ements IVSd: 0.94 cm LVIDd: 4.3 cm LVIDs: 2.6 cm LVPWd: 0.89 cm LV mass(C )d: 125.6 grams LV mass Index: 64.9 grams/ m2 Ao sinus of Valsal va diam: 3.1 cm Asc Ao: 3.0 cm LVOT diam: 2.1 cm LVOT area: 3.4 cm2 RAd major (vol): 5.1 cm LVAd ap4: 32.4 cm2 LVLd ap4: 8.9 cm EDV(MO D-sp4) : 97.4 ml LVAs ap4: 17.3 cm2 LVLs ap4: 7.5 cm ESV(MO D-sp4) : 33.9 ml EF(MOD -sp4): 65.2 % LVAd ap2: 27.7 cm2 LVLd ap2: 8.6 cm EDV(MO D-sp2) : 76.3 ml LVAs ap2: 16.2 cm2 LVLs ap2: 7.4 cm ESV(MO D-sp2) : 32.1 ml EF(MOD -sp2): 58.0 % EDV(MO D-bp): 87.0 ml ESV(MO D-bp): 33.0 ml EF(MOD -bp): 62.1 % SV(MOD -bp): 54.0 ml SI(MOD -bp): 27.9 ml/m2 TAPSE_ phl: 2.2 cm EDV(MO D-bp) Index: 45.0 ml/m2 LA vol: 47.7 ml LA vol index: 24.6 ml/m2 RA area: 15.4 cm2 RA Volume : 39.3 ml RA Volume Index: 20.3 ml/m2 RVd base: 2.9 cm Dopple r Measur ements MV E max garima: 57.9 cm/sec MV A max garima: 74.9 cm/sec MV E/A: 0.77 MV dec time: 0.13 sec MV dec slope: 445.0 cm/sec 2 AV max: 137.4 cm/sec Ao max P.6 mmHg TABATHA(V, D): 3.1 cm2 LVOT max P.3 mmHg LVOT max: 125.4 cm/sec TV E max garima: 52.6 cm/sec PV max: 100.3 cm/sec PV max P.0 mmHg AV Dimens ionles s Index: 0.91 MV E': 13.9 cm/sec MV E/E' ratio: 4.2 Electr onical ly signed by:Amy Mcclain 2024 07:25 PM cc: Lori Bhakta 2024 US CARDIO ECHO INTERFACE [facility] [address], [place], [address], 09/01/2024 20:26:17 10/11/19 25 10/04/2024 US, obste tric, follo w-up [facility] [address] [place] [address] Teleph one [phone] Name: LORI BHAKTA [id number] Exam Date: 2024 Age: 34 Physic jef: JORDY EMMANUEL MD, RICH MENA : 1990 Examin ation: US OB FOLLOW UP INDICA TION: Growth ultras ound A transa bdomin al ultras ound was perfor med demons tratin g a single intrau terine pregna ncy in the cephal ic presen tation . cardia c activi ty is confir med at 159 (bpm). Baby is active during the course of this ultras ound exam. Breath ing is seen. The placen ta is locate d anteri or. Placen ta previa is not seen. The MVP is 6.48 cm. biomet rics survey shows: BPD of 8.83 cm, consis tent with 35 weeks, 5 days, 39.9 percen tile. Head circum ferenc e is 32.56 cm, consis tent with 36 weeks, 6 days, 31.9 percen tile. Abdomi nal circum ferenc e is 31.86 cm, consis tent with 35 weeks, 5 days 42.7 percen tile. Femur length is 7.02 cm, consis tent with 36 weeks, 0 days, 35.3 percen tile. Estima shelby weight is 2809 grams, or 6lbs 3ozs, consis tent with 40.2 percen tile. Based on biomet rics, this placed the baby at an overal l gestat ional age of 36 weeks, 1 days. IMPRES JEFFERY: 1. Viable intrau terine gestat ion at 36 weeks 1 day in cephal ic presen tation . 2. Estima shelby weight is 2809 grams, which is the 40.2 percen tile by [facility] k biomet ry. See indivi dual measur ements above. 3. Normal amniot ic fluid volume Electr onical ly signed in Beck cribe by: Rich Zaman on:10/10 7:20 AM cc: Page PAGE 1 of NUMPAG ES 1 INTERFACE [facility] [address] [place] [address], [id number], 10/10/2024 08:23:52 Result Notes None recorded. Problems Name Problem SNOMED Code Status Onset Date Resolution Date Notes Provider Name and Address Organization Details Recorded Time Stenosis of cervix 18563555 Active 2023 Wes Leyva MD [address] [place] [address], [address] , [facility] 4 16:23:06 Normal 90252855 Active 2023 Swathi Gonzalez [facility] 4 10:48:12 test positive 564462109 Active 2023 [facility] 4 15:20:14 Antepartu m hemorrhag e 73062940 Active 2023 [facility] 4 16:39:18 84078797 Active 2023 Swathi Gonzalez null, [facility] 4 10:27:38 Gestation period, 6 weeks 53578818 Active 2023 Swathi Gonzalez null, [facility] 4 10:48:07 Nausea and vomiting 97629152 Active 2023 Swathi Gonzalez null, [facility] 4 11:04:48 High risk 33651769 Active 2023 MONALISA RAMIRZE MD [address] [facility], [place], [address] , [facility] 5 12:03:43 RhD negative 513110560 Active 2023 - Rhogam given 04/21 - Rhogam @ 28 weeks, given 08/09 - RH studies PP MONALISA RAMIREZ MD [address] [facility], [place], [address] , [facility] 5 13:46:31 Anxiety 48065662 Active - no meds MONALISA RAMIREZ MD [address] [facility], [place], [address] , [facility] 4 11:31:43 Dipping 923246287 Active - Tobacco cessation advised MONALISA RAMIREZ MD [address] [facility], [place], [address] , [facility] 4 11:32:04 History of loop electrosu rgical excision procedure 14180289031 102 Active - CXL screenig Q2w at 16-24w: CXL 3.24 on 05/17, CXL 3.62cm on 05/27, CXL 3.79cm on 06/10, CXL 25.5 cm on 06/22, referred to MFM - severe cervical scaring on physical exam - Pap 02/10/2024 neg cytology, neg HRHPV - MFM apt 06/30 CXL 25.5-24, no cerclage, started on vaginal progester one MONALISA RAMIREZ MD [address] [facility], [place], [address] , [facility] 5 12:12:17 Past history of section 584690577 Active 2023 - delivery 18 months ago in [facility] confirmed with ROMR to be LTCS at 39w3d 2/2 arrest of dilation with cervical stenosis - ROMR reviewed - RLTCS scheduled [facility] for 10/24/2024 MONALISA RAMIREZ MD [address] [facility], [place], [address] , [facility] 5 12:11:34 Nausea and vomiting in Active 2024 Reglan 5 mg pO Q6H PRN Levi Johnson null, [facility] 5 10:20:31 Normal body mass index 51952038 Active PPBMI 27 MONALISA RAMIREZ MD [address] [place] [address], [address] , [facility] 4 11:34:13 Gestation period, 36 weeks 10958793 Active 2023 [facility] 5 15:29:26 Gestation period, 9 weeks 396743 Active 2023 [facility] 4 09:37:16 RhD negative 479267185 Active 2023 - Rhogam given 04/21 - Rhogam @ 28 weeks, given / - RH studies PP MONALISA RAMIREZ MD [address] [place] [address], [address] , [facility] 5 13:46:31 Gestation period, 13 weeks 01606549 Active 2023 [facility] 4 09:35:27 Abnormal uterine bleeding 30557612741 100 Active 2023 [facility] 4 10:36:23 Bleeding from female genital tract during 93364940308 847088 Active 2023 [facility] 4 10:37:43 Placenta previa 44210145 Active 2023 MONLAISA RAMIREZ MD [address] [place] [address], [address] , [facility] 4 18:51:37 Placenta previa with hemorrhag e 658591804 Active noted on u/s 04/26 Marginal previa 05/17 at 1.6-2cm from OS RESOLVED 05/27 MONALISA RAMIREZ MD [address] [place] [address], [address] , [facility] 4 13:02:33 Placenta previa marginali s 97381956 Active 2023 MONALISA RAMIREZ MD [address] [place] [address], [address] , [facility] 4 13:15:07 Gestation period, 17 weeks 39082204 Active 2023 Swathi Gonzalez null, [facility] 4 15:42:25 Tachycard ia 1578218 Active 2023 [facility] 4 15:30:28 Previous operation to cervix affecting 40417111 Active 2023 MONALISA RAMIREZ MD [address] [place] [address], [address] , [facility] 4 13:00:38 Disorder of placenta 535701298 Active Anterior placenta MONALISA RAMIREZ MD [address] [place] [address], [address] , [facility] 4 13:03:06 Gestation period, 19 weeks 31959263 [facility] 20[facility] 4 15:49:58 Gestation period, 21 weeks 59200495 Active 2023 Swathi Gonzalez null, [facility] 4 17:16:27 Gestation period, 22 weeks 35331182 Active 2023 Swathi Gonzalez null, [facility] 4 14:09:42 Past history of section 802205617 Active 2023 - delivery 18 months ago in [facility] confirmed with ROMR to be LTCS at 39w3d 2/2 arrest of dilation with cervical stenosis - ROMR reviewed - RLTCS scheduled [facility] for 10/24/2024 MONALISA RAMIREZ MD [address] [place] [address], [address] , [facility] 5 12:11:34 Short cervical length in 739468768 Active 2024 MONALISA RAMIREZ MD [address] [place] [address], [address] , [facility] 5 12:10:04 Heartburn 40208437 Active 2024 Levi Johnson null, [facility] 5 12:07:43 Gestation period, 28 weeks 10605822 Active 2024 Swathi Carlos null, [facility] 5 10:33:50 Gestation period, 27 weeks 73999872 Active 2024 Swathi Gonzalez null, [facility] 5 09:15:13 Palpitati ons 33161527 Active 2024 Swathi Carlos null, [facility] 5 09:30:05 Blood glucose outside reference range 518454966 Active 2024 Levi Johnson null, [facility] 5 16:37:16 Hemorrhoi ds in 690717570 Active 2024 MONALISA RAMIREZ MD [address] [place] [address], [address] , [facility] 5 11:49:49 Vasovagal syncope 880178879 Active 2024 - EKG 08/04 sinus ryhtm with non specifi t wave abnormali ties - Cardiolog y consult Dr. Mcclain 08/22 - Echo 08/31 EF 62% with Trace MR MONALISA RAMIREZ MD [address] [place] [address], [address] , [facility] 5 19:22:45 Anemia in mother complicat ing , childbirt h AND/OR puerperiu m 94343064 Active 2024 Swathi Gonzalez null, [facility] 5 17:09:24 Third trimester 87278469 Active 2024 [facility] 5 13:23:06 Requires diphtheri a, tetanus and pertussis vaccinati on 074758028 Active 2024 given 08/09 MONALISA RAMIREZ MD [address] [place] [address], [address] , [facility] 5 13:46:06 Anemia 117477157 Active 2024 MONALISA RAMIREZ MD [address] [place] [address], [address] , [facility] 5 13:50:49 heart disorder 432102072 Active 2024 Swathi Gonzalez [facility] 5 15:14:40 Abnormali ty of organs AND/OR soft tissues of pelvis affecting 6125991 Active 2024 [facility] 5 15:19:37 Pruritus of 899655162 Active 2024 Levi Johnson [facility] 5 15:24:32 Chronic anemia 433890418 Active 2024 - Hgb 10.3 on 08/22 - Iron and colace MONALISA RAMIREZ MD [address] [place] [address], [address] , [facility] 5 14:49:26 Gestation period, 32 weeks 6253240 Active 2024 Sw[facility] 5 15:18:01 Gestation period, 33 weeks 73361316 Active 2024 Sw[facility] 5 10:55:23 Gestation period, 34 weeks 03739277 Active 2024 Swathi kasper, [facility] 5 12:38:10 Pruritic disorder of skin Active 2024 - Bile acids 08/25 of 4.1 MONALISA RAMIREZ MD [address] [place] [address], [address] , [facility] 5 19:23:05 Gestation period, 35 weeks 52933325 Active 2024 Swathi Carlos null, [facility] 5 16:15:41 Nausea and vomiting in Active 2024 [facility] 5 10:20:31 Polyp of vagina 22789686 Active 2024 - 2-3 mm vaginal polyp at edge of cervix and vagina at 6 oclock position MONALISA RAMIREZ MD [address] [place] [address], [address] , [facility] 5 12:14:01 Gestation period, 37 weeks 71299211 Active 2024 Levi Johnson null, [facility] 5 13:12:39 Gestation period, 38 weeks 37090753 Active 2024 [facility] 5 16:10:56 Problem Notes None recorded. Procedures Surgical History Date Name Laterality Status Provider Name and Address Organization Details Recorded Time 09/03/2022 Date of Last Pap Smear completed Jenna Rai [facility] 02/10/2024 15:50:35 Imaging Results Imaging Date Name Status LastModified by Organization Details LastModified Time 08/31/2024 US, echocardiogram completed INTERFACE [facility] [address] [place] [address], [id number], 09/01/2024 20:26:17 10/04/2024 US, obstetric, follow-up completed INTERFACE [facility] [address] [place] [address], [id number], 10/10/2024 08:23:52 Procedure Notes None recorded. Medical Equipment None Reported. Allergies No known drug allergies Medications Name Sig Start Date Stop Date Status Note LastModified by Organization Details LastModified Time Colace 100 mg capsule Take 1 capsule every day by oral route. 2024 active Not Available Not Available Not Avai lable ferrous sulfate 325 mg (65 mg iron) tablet Take 1 tablet every day by oral route. 2024 active Not Available Not Available Not Avai lable Loestrin 1/20 (21) 1 mg-20 mcg tablet Take 1 tablet every day by oral route. 06/10 completed Not Available Not Available Not Available Pepcid 20 mg tablet Take 1 tablet every day by oral route. 2024 active Not Available Not Available Not Avai lable ondansetron 4 mg disintegrat ing tablet Place 1 tablet every 6 hours by transling ual route. 2024 active Not Available Not Available Not Avai lable Reglan 5 mg tablet Take 1 tablet 4 times a day by oral route. 06/10 completed Not Available Not Available Not Available active Not Available Not Avai lable Not Available HyperRHO S/D 250 unit (50 mcg) intramuscul ar syringe Inject 250 units by intramusc ular route. 06/10 completed Not Available Not Available Not Available RhoGAM Ultra-Filte red PLUS 1,500 unit (300 mcg) intramuscul ar syringe INJECT 1.3 U ONCE 2024 active Not Available Not Available Not Avai lable Vitals Date Recorded Body weight Systolic blood pressure Diastolic blood pressure Provider Name and Address Organization Details Last Updated DateTime 09/27/2024 48204.7643 58 g 138 mm[Hg] 88 mm[Hg] Swathi Carlos [facility] 09/27/2024 12:57:55 Date Recorded Body weight Body mass index (BMI) Body height Heart rate Oxygen saturation Oxygen saturation in Arterial blood by Pulse oximetry Systolic blood pressure Diastolic blood pressure Provider Name and Address Organization Details Last Updated DateTime 70134.7 22337 g 31.7 kg/m2 165.1 cm 104 /min 98 % 98 % 132 mm[Hg] 84 mm[Hg] Levi [facility] 5 12:41:19 Date Recorded Body weight Body mass index (BMI) Body height Heart rate Oxygen saturation Oxygen saturation in Arterial blood by Pulse oximetry Systolic blood pressure Diastolic blood pressure Provider Name and Address Organization Details Last Updated DateTime 5 50836.1 94569 g 32 kg/m2 165.1 cm 110 /min 98 % 98 % 124 mm[Hg] 76 mm[Hg] Levi [facility] 5 13:12:17 Date Recorded Body weight Body mass index (BMI) Body height Respiratory rate Systolic blood pressure Diastolic blood pressure Provider Name and Address Organization Details Last Updated DateTime 5 41523.6 89329 g 32.1 kg/m2 165.1 cm 98 /min 128 mm[Hg] 86 mm[Hg] Swathi Gonzalez [facility] 5 13:02:18 Date Recorded Body height Body mass index (BMI) Body weight Heart rate Oxygen saturation Oxygen saturation in Arterial blood by Pulse oximetry Systolic blood pressure Diastolic blood pressure Provider Name and Address Organization Details Last Updated DateTime 5 165.1 cm 29.7 kg/m2 70156.1 6 g 88 /min 98 % 98 % 112 mm[Hg] 76 mm[Hg] [facility] 5 12:18:07 Social History Question Answer Notes LastModified by Nabto Details LastModified Time What Is Your Level Of Alcohol Consumption? None [email or web address] Information not available 02/10/2024 What Is Your Level Of Caffeine Consumption? Moderate [email or web address] Information not available 02/10/2024 How Many Children Do You Have? 5 Information not available 02/10/2024 What Is Your Relationship Status? Single [email or web address] Information not available 02/10/2024 Are You Sexually Active? Yes [email or web address] Information not available 02/10/2024 Do You Use Any Illicit Or Recreational Drugs? No [email or web address] Information not available 02/10/2024 Sex: Unknown Functional Status Question Answer Note LastModified by Nabto Details LastModified Time What is your exercise level? Occasional Information not available 02/10/2024 Mental Status None recorded. Family History Nothing Reported. Medical History No medical history recorded. Gynecological History Statement/Question Response Flow Moderate Date of LMP 01/23/2024 Frequency of Cycle (Q days) 30 Sexually Active? Y Menses Monthly Y HPV Vaccine N Date of Last Pap Smear 09/03/2022 Duration of Flow (days) 5 Current Control Method BCPs Hormone Replacement Therapy N Obstetrics History GPAL:G 7 P 5 0 1 5 Type Value Full Term 5 Spontaneous 1 Living 5 Total 7 Immunizations Vaccine Type Date Status Note Provider Nam e and Address Organization Details Recorded Time Tdap 08/09/2024 completed MONALISA RAMIREZ MD [address] [place] [address], [phone], [facility] 08/09/2024 17:45:46 Past Encounters Encounter ID Performer Location Encounter Start Date Encounter Closed Date Diagnosis/Indication Diagnosis SNOMED-CT Code Diagnosis ICD10 Code Diagnosis Note [id number] Wes Leyva MD [facility] [place] [address] [place] [address] 2 [place] [address] 02/10/2024 15:11:47 02/10/2024 16:37:42 Gynecologic examination 22139988 Z01.419 Exam was normal today. Pap smear was done today. If this does come back insufficie nt due to cervical stenosis then I would have her come back and repeat her Pap smear after dilating her cervix. Additional diagnosis detail: Encounter for gynecologi ashley examinatio n Uses oral contraception 2331127 Z30.41 She will continue her Loestrin control for contracept ion.Additi onal diagnosis detail: Oral contracept herber use Stenosis of cervix 53188 006 N88.2 Additional diagnosis detail: Cervical stenosis (uterine cervix) [id number] MONALISA RAMIREZ MD [facility] [place] [address] [place] [address] 2 [place] [address] 03/11/2024 09:36:05 03/11/2024 13:46:53 screening 742327875 Z36.89 RhD negative 661825417 Z 01.83 Multigravida 249253458 Z 34.81 Additional diagnosis detail: Multigravi da in first trimester High risk 4720 0007 O09.91 Additional diagnosis detail: High-risk in first trimester [id number] MONALISA RAMIREZ MD [facility] [place] [address] [place] [address] 04/01/2024 09:09:26 04/01/2024 10:53:12 Gestation period, 9 weeks 166104 Z3A.09 Genetic test 783148894 Z 13.79 Additional diagnosis detail: Genetic screening High risk 476 O09.91 Additional diagnosis detail: High-risk in first trimester [id number] MONALISA RAMIREZ MD [address] [facility] ([place]) [address] [address] 04/21/2024 12:12:37 04/21/2024 13:22:05 RhD negative 103359106 O26.899 Z67.91 [id number] MONALISA RAMIREZ MD [facility] [place] [address] [place] [address] 04/26/2024 09:21:19 04/26/2024 11:08:22 Second trimester 11742644 Z34.92 Bleeding f rom female genital tract during 9519471960 6440900 O46.90 O46.92 High risk 476 O09.91 Additional diagnosis detail: High-risk in first trimester Placenta previa 47200445 O44.00 [id number] MONALISA RAMIREZ MD [facility] [place] [address] [place] [address] 05/17/2024 09:56:22 05/17/2024 13:21:52 Normal 40497472 Z34.92 Z3A.16 Additional diagnosis detail: Encounter for supervisio n of other normal , first trimesterA dditional diagnosis detail: Cervical os stenosis screening 2437 68139 Z36.86 High risk 4720 0007 O09.92 Additional diagnosis detail: High-risk in first trimester Past pregn saloni history of section 338258514 Z98.891 Placenta p revia marginalis 40716547 O44.20 [id number] MONALISA RAMIREZ MD [facility] [place] [address] [place] [address], [place] [address] 05/27/2024 14:01:55 05/27/2024 16:46:41 Gestation period, 17 weeks 26869685 Z3A.17 Z34.92 Tachycardia 6147244 R00. 0 screening 2437 00371 Z36.89 High risk 4720 0007 O09.92 Additional diagnosis detail: High-risk in first trimester Previous o peration to cervix affecting 68615273 O34.42 Z98.890 [id number] MONALISA RAMIREZ MD [facility] [place] [address] [place] [address] 2 [place] [address] 06/10/2024 14:47:37 06/10/2024 17:28:45 Gestation period, 19 weeks 29089694 Z3A.19 Z34.92 History of loop electrosurgical excision procedure 9052918650 9102 Z98.890 High risk 4720 0007 O09.93 Additional diagnosis detail: High-risk in first trimester [id number] MONALISA RAMIREZ MD [facility] [place] [address] [place] [address] 2 [place] [address] 06/22/2024 09:29:18 06/22/2024 13:50:09 Gestation period, 21 weeks 87980920 Z3A.21 Z34.92 Postproced ural state finding 995461415 Z98.890 High risk 4720 0007 O09.92 Additional diagnosis detail: High-risk in first trimester History of loop electrosurgical excision procedure 8291423924 9102 Z98.890 [id number] MONALISA RAMIREZ MD [facility] [place] [address] [place] [address] 2 [place] [address] 07/08/2024 08:42:00 07/08/2024 11:05:27 High risk 97131745 O09.92 Z3A.23 Additional diagnosis detail: High-risk in first trimester Short cerv ical length in 062569652 O26.879 Previous o peration to cervix affecting 55217723 O34.42 Z98.890 [id number] MONALISA RAMIREZ MD [facility] [place] [address] [place] [address] 08/05/2024 09:03:48 08/05/2024 10:16:20 Gestation period, 27 weeks 65244203 Z3A.27 Z34.92 Palpitations 44674221 R0 0.2 High risk 4720 0007 O09.92 Additional diagnosis detail: High-risk in first trimester Hemorrhoid s in 927709058 O22.40 [id number] MONALISA RAMIREZ MD [facility] [place] [address] [place] [address] 2 [place] [address] 08/09/2024 12:51:21 08/09/2024 14:17:01 Third trimester 64697908 Z34.93 Z3A.28 Requires d iphtheria, tetanus and pertussis vaccination 911049663 Z23 Administra tion of human anti-D immunoglobulin needed 0680044399 Z29.13 screening 2437 78633 Z36.89 High risk 4720 0007 O09.93 Additional diagnosis detail: High-risk in first trimester RhD negative 961420560 O 26.899 Z67.91 Anemia 752208942 O99.01 9 [id number] Laila Mcclain, [facility] [place] [address] [place] [address] 08/22/2024 12:02:00 08/23/2024 04:44:00 Palpitations 61219284 R00.2 67741049 Z33.1 Tachycardia 9186149 R00. 0 Third trim obie 35038838 Z34.93 [id number] MONALISA RAMIREZ MD [facility] [place] [address] [place] [address] 2 [place] [address] 08/25/2024 14:20:39 08/25/2024 17:30:55 Abnormality of organs AND/OR soft tissues of pelvis affecting 1595000 O34.43 Pruritus of 23 6256097 O99.713 L29.9 High risk 4720 0007 O09.93 Additional diagnosis detail: High-risk in first trimester [id number] MONALISA RAMIREZ MD [facility] ([place] [address] [place] [address] 2 [place] [address] 09/13/2024 09:42:44 09/13/2024 11:14:24 Gestation period, 33 weeks 49728690 Z3A.33 Z34.93 High risk 4720 0007 O09.93 Additional diagnosis detail: High-risk in first trimester [id number] MONALISA RAMIREZ MD [facility] [place] [address] [place] [address] 2 [place] [address] 09/20/2024 12:34:22 09/20/2024 14:52:34 Gestation period, 34 weeks 78371702 Z3A.34 Z34.93 High risk 4720 0007 O09.93 Additional diagnosis detail: High-risk in first trimester [id number] MONALISA RAMIREZ MD [facility] [place] [address] [place] [address] 2 [place] [address] 09/27/2024 12:20:00 09/27/2024 14:00:43 Gestation period, 35 weeks 86858366 Z3A.35 Z34.93 High risk 4720 0007 O09.93 Additional diagnosis detail: High-risk in first trimester [id number] MONALISA RAMIREZ MD [facility] [place] [address] [place] [address] 2 [place] [address] 10/04/2024 12:09:19 10/04/2024 14:26:33 Gestation period, 36 weeks 02145355 Z3A.36 Z34.93 Additional diagnosis detail: High-risk in first trimester High risk 4720 0007 O09.93 Additional diagnosis detail: High-risk in first trimester [id number] MONALISA RAMIREZ MD [facility] [place] [address] [place] [address] 2 [place] [address] 10/10/2024 12:32:41 10/10/2024 14:39:58 Gestation period, 37 weeks 50154141 Z3A.37 Z34.83 High risk 4720 0007 O09.93 Additional diagnosis detail: High-risk in first trimester [id number] MONALISA RAMIREZ MD [facility] [place] [address] [place] [address] 10/20/2024 12:46:24 10/20/2024 13:55:48 Gestation period, 38 weeks 29439698 Z3A.38 Z34.93 High risk 4720 0007 O09.93 Additional diagnosis detail: High-risk in first trimester [id number] MONALISA RAMIREZ MD [facility] [place] [address] [place] [address] 11/01/2024 12:07:45 11/01/2024 12:59:38 state 03102620 Z39.2 Past pregn saloni history of section 158125543 Z98.891 Health Concerns Section Related Observation LastModified by Organization Detai ls LastModified Time None Recorded Concern Status LastModified by Organization Details LastModified Time None Recorded Advance Directives Directive None Recorded Payers Encounter Date Sequence Insurance Name Policy Number Policy Hanley Covered Member ID Hanley Member ID Guarantor Name 09/27/2024 2 [place] Eloisa L Nikoali [id number] Eloisa L Nikolai 09/27/2024 1 [place] [id number] Doug Nikolai [id number] Eloisa L Nikolai 10/04/2024 2 [place] [facility] [place] Eloisa L Nikolai [id number] Eloisa L Nikolai 10/04/2024 1 [place] [id number] Doug Nikolai [id number] Eloisa L Nikolai 10/10/2024 2 [place] [place] Eloisa L Nikolai [id number] Eloisa L Nikolai 10/10/2024 1 [place] [id number] Doug Nikolai [id number] Eloisa L Nikolai 10/20/2024 2 [place] [employer] [place] Eloisa L Nikolai [id number] Eloisa L Nikolai 10/20/2024 1 [place] [id number] Doug Menchaca [id number] Eloisa Menchaca 11/01/2024 2 [place] Eloisa Menchaca [id number] Eloisa Menchaca 11/01/2024 1 [place] [id number] Doug Menchaca [id number] Eloisa Menchaca Notes Date Note Type Note Provider Name and Address Organization Details Recorded Time 09/27/2024 text/html Patient has no complaints today. She denies headache, light headedness, dizziness, changes in vision, right upper quadrant/epigastric plain, swelling hands and face, nausea, vomiting, fever, chills, shortness of breath, chest pain, heart palpitations, GI symptoms, symptoms, abdominal pain, leakage of fluid, vaginal bleeding, vaginal discharge and contractions. She has positive movement and denies decreases or changes in movement. MONALISA RAMIREZ MD [address] [place] [address], [phone], [facility] 09/27/2024 13:18:02 10/04/2024 text/html Patient states t hat she had some minimal scant dark black spotting this morning with wiping. Patient denies any active bleeding. She did have intercourse 3 days ago and had an episode of extreme diarrhea nausea and vomiting from Thursday to Thursday. She does have a hemorrhoid that has been bothersome. Patient has no other complaints today. She denies headache, light headedness, dizziness, changes in vision, right upper quadrant/epigastric plain, swelling hands and face, nausea, vomiting, fever, chills, shortness of breath, chest pain, heart palpitations, GI symptoms, symptoms, abdominal pain, leakage of fluid, vaginal bleeding, vaginal discharge and contractions. She has positive movement and denies decreases or changes in movement. MONALISA RAMIREZ MD [address] [place] [address], [phone], [facility] 10/06/2024 12:20:07 10/10/2024 text/html Patient complain s of intermittent contractions. Patient has no other complaints today. She denies headache, light headedness, dizziness, changes in vision, right upper quadrant/epigastric plain, swelling hands and face, nausea, vomiting, fever, chills, shortness of breath, chest pain, heart palpitations, GI symptoms, symptoms, abdominal pain, leakage of fluid, vaginal bleeding, vaginal discharge and regular contractions. She has positive movement and denies decreases or changes in movement. MONALISA RAMIREZ MD [address] [place] [address], [phone], [facility] 10/10/2024 18:07:01 10/20/2024 text/html Patient complain s of intermittent contractions. Patient has no other complaints today. She denies headache, light headedness, dizziness, changes in vision, right upper quadrant/epigastric plain, swelling hands and face, nausea, vomiting, fever, chills, shortness of breath, chest pain, heart palpitations, GI symptoms, symptoms, abdominal pain, leakage of fluid, vaginal bleeding, vaginal discharge and regular contractions. She has positive movement and denies decreases or changes in movement. MONALISA RAMIREZ MD [address] [place] [address], [phone], [facility] 10/22/2024 12:04:13 11/01/2024 text/html [ ] is a rafal regan [ ]-year-old G[ ] P[ ] status post [ ] on [ ] at [ ] secondary to [ ] presents today for visit. Patient states that she is meeting all and postoperative milestones. Patient is doing well postoperatively. She denies swelling pain or redness in a calf or calves. She states that her incisions are healing well. She denies erythema, drainage, pain and dehiscence of her incisions. She is ambulating, tolerating regular diet, voiding spontaneously, and passing gas. She denies heavy vaginal bleeding. She is [ ] feeding, and has no breast complaints. She has no complaints today. She denies headache, changes in vision, lightheadedness, dizziness, right upper quadrant/epigastric pain, nausea, vomiting, fever, chills, vaginal discharge, heavy vaginal bleeding, pelvic pain, abdominal pain, back pain, swelling of calf/calves, GI symptoms and symptoms. Her mood is good, she denies homicidal and suicidal ideation. She has good support at home and is eating and sleeping well. MONALISA RAMIREZ MD [address] [place] [address], [phone], [facility] 11/01/2024 17:49:41 OBGyn Episode Ob Episode Information Episode Created Date Number of Fetuses Patient Bloodtype Patient rh Status Prepregnancy Weight lbs Domestic Partner Domestic Partner Phone Father Name Process Design Engineer Status 03/11/20 24 1 O Negative Doug OPEN Fetus Data First Name Last Name Admitted to NICU Weight (g) Sex Living Outcome Pediatric Complications Fetus ID Race Codes Race Delivery Type false 3543.68 75 F 11344 C/S ( Section) Problems Problem Notes Doug Deliver at H: RLTCS scheduled 10/24/24 DILATE CERVIX AT CSECTION Pediatrition in [place] (unsure of name)Declines flu vaccineGirl, breast feeding, depo or nexplanonGBS negativeGS 10/04 EFW 40.2%, 2809g Problem Name Start Date End Date Resolution Snomed Code Not e Vasovagal syncope 08/06/2024 878091229 - EKG 08/04 sinus ryhtm with non specifi t wave abnormalities- Cardiology consult Dr. Mcclain 08/22- Echo 08/31 EF 62% with Trace MR Requires diphtheria, tetanus and pertussis vaccination 08/09/2024 925539323 given 2/ Chronic anemia 08/27/2024 961383330 - Hg b 10.3 on 08/22- Iron and colace Pruritic disorder of skin 09/17/2024 4379813860 - Bile acids of 4.1 Polyp of vagina 10/06/2024 26929673 - 2 -3 mm vaginal polyp at edge of cervix and vagina at 6 oclock position Anxiety 50121497 - no meds Nausea and vomiting in 10/04/2024 1390729511 Reglan 5 mg pO Q6H PRN RhD negative 04/21/2024 473182854 - Rhog am given 04/21- Rhogam @ 28 weeks, given 08/09- RH studies PP Past history of section 06/30/2024 698513849 - delivery 18 months ago in [facility] confirmed with ROMR to be LTCS at 39w3d 2/ arrest of dilation with cervical stenosis- ROMR reviewed- RLTCS scheduled [facility] for 10/24/2024 Dipping 286959284 - Tobacco cessation advised History of loop electrosurgical excision procedure 34576429863559 - CXL s creenig Q2w at 16-24w: CXL 3.24 on 05/17, CXL 3.62cm on 05/27, CXL 3.79cm on 06/10, CXL 25.5 cm on 06/22, referred to [facility]- severe cervical scaring on physical exam- Pap 02/10/2024 neg cytology, neg HRHPV- MFM apt 06/30 CXL 25.5-24, no cerclage, started on vaginal progesterone Normal body mass index 43392250 PPBMI 27 Placenta previa with hemorrhage noted on u/s 04/26Marginal previa 05/17 at 1.6-2cm from [facility]SR[facility]OL[facility]ED 05/27 Disorder of placenta 139679823 Anterior placenta Fabiano Calculation Initial Fabiano Date Initial Exam Date Initial Exam Provider Initial Ultrasound Date Last Menstrual Period Date Ultra Sound Weeks Gestation 10/29/2024 03/11/2024 03/11/2024 01/23/2024 7 Eighteen To Twenty Week Fabiano Update Ultra Sound Date Fundal Height At Umbil Quickening Date Ultra Sound Latest Weeks Gestation Final Fabiano Confirmed By Final Fabiano Confirmed Date Final Fabiano Date Ultra Sound Latest Days Gestation 0 0 Pre-lianet Flowsheet Flowsheet Date 03/11/2024 Duran Score Blood Edema Fundus Height Fundus Units Glucose Ketones Leukocytes Nitrite Labor Signs Protein Cervic Dilation Cervic Effacement Cervic Station none none none neg 0cm 0% -4 Type Weight in lbs Pre/Post Dialysis Refused Weight 162.789967359481 BP Diastolic BP Location Tested BP Systolic BP Type 78 120 Fetus Heart Rate Present A 136 Present Fetus Movement A No Comments 1. New OB: Patient was congr atulated on and new OB education was completed. New OB education handouts and packet was given today. NOB labs ordered today. Patient counseled on aneuploidy screening, hgb electrophoresis, CF and SMA screening. Pt declines at this time. Handouts given. Patient counseled on flu and COVID vaccine in . Patient declines COVID vaccine and declines flu vaccine. Continue PNV QD. SAB precautions given. RTC in 4 weeks for LAURI visit with ultrasound for heart tones or sooner if needed.2. Prepregnancy BMI 273. Rh negative: Patient had spotting last week, RhoGAM 50 mcg administered today. Patient denies current vaginal bleeding. Rh- status discussed with patient. Recommend RhoGAM at 28 weeks and Rh studies . Patient was advised to notify [facility] immediately of any vaginal bleeding or spotting. Patient voiced understanding.4. History of anxiety: pt is not on medications or in therapy. Mood is good, no HI or SI. Pt was counseled on antepartum and depression and given resources and precautions. Patient declines mood stabilizing medications and therapy at this time. Pt advised to call 911 immediately with HI or SI. Pt VU. Recommend 2 week visit for mood check.5. Tobacco use in : Patient dips tobacco. Maternal and risks of tobacco discussed with patient including but not limited to risk of IUGR, labor, delivery, delivery sequela, IUFD and SIDS. Advise smoking cessation. Patient voiced understanding.6. History of LEEP: Patient had history of LEEP in 2017 for LAINEY-2 and in 2019 for LAINEY-3. Her Pap smear on 02/10/2024 was negative cytology, negative high-risk HPV. Discussed with patient risks of history of LEEP in including history of shortened cervix, delivery, labor and sequela of delivery. Discussed with patient recommendation for cervical length screening every 2 weeks starting at 16 to 24 weeks of .7. History of section in [place] with her last secondary to failure to progress beyond 3 cm dilation. Patient states she was told this occurred secondary to her prior to LEEP procedures and cervical scarring. Discussed with patient's risks and benefits of repeat section versus TOLAC. All patient's questions were answered to her satisfaction. She is considering TOLAC at this time. Release of medical records was signed for her [place] OB and delivery for review.8. Intermittent nausea in : denies vomiting. Pt is able to tolerate oral intake. Discussed with pt conservative management with frequent, regular, small and bland meals (BRAT diet). Advised OTC Unisom and VB6. handout given. Pt desires anti nausea medication for break through N/V. Reglan 5 mg PO Q6H PRN N/V ordered today. Discussed with patient no zofran in first trimester. Pt voiced understanding. Pt advised to go to the ER immediately if unable to tolerate oral intake. Pt VU9. Poor dentition: Patient has dental appointment scheduled, dental letter given. Flowsheet Date 04/01/2024 Duran Score Blood Edema Fundus Height Fundus Units Glucose Ketones Leukocytes Nitrite Labor Signs Protein Cervic Dilation Cervic Effacement Cervic Station none none none neg Type Weight in lbs Pre/Post Dialysis Refused 160.956458698659 BP Diastolic BP Location Tested BP Systolic BP Type 76 R arm 110 sitting Fetus Heart Rate Present A 155 Present Fetus Movement A No Comments 1.LAURI: Patient has no OB com plaint's. NOB labs reviewed. Patient counseled on aneuploidy screening, CF and SMA screening. Pt desires testing today. Patient counseled on flu and COVID vaccine in . Patient declines COVID vaccine and declines again flu vaccine. Continue PNV QD. SAB precautions given. RTC in 4 weeks for LAURI visit or sooner if needed. Flowsheet Date 04/21/2024 Duran Score Blood Edema Fundus Height Fundus Units Glucose Ketones Leukocytes Nitrite Labor Signs Protein Cervic Dilation Cervic Effacement Cervic Station Type Weight in lbs Pre/Post Dialysis Refused BP Diastolic BP Location Tested BP Systolic BP Type Fetus Heart Rate Present Fetus Movement Comments Flowsheet Date 04/26/2024 Duran Score Blood Edema Fundus Height Fundus Units Glucose Ketones Leukocytes Nitrite Labor Signs Protein Cervic Dilation Cervic Effacement Cervic Station none none Bleeding neg 0cm Type Weight in lbs Pre/Post Dialysis Refused With clothes 164.346550618472 BP Diastolic BP Location Tested BP Systolic BP Type 72 R arm 122 sitting Fetus Heart Rate Present A 145 Present Fetus Movement A No Comments 1.LAURI: Patient complains of intermittent dark blood noted on her pad. She denies any active vaginal bleeding. Ultrasound today shows placenta previa and subchorionic hemorrhage adjacent to the internal os. Sterile speculum examination shows no blood in the vaginal vault, no pooling, negative Valsalva. The cervix is grossly normal and visually closed. RhoGAM was administered 04/21/2024 due to patient's Rh- status. Patient has no other OB complaint's. NOB labs reviewed. CF and SMA screening negative. Continue PNV QD. SAB precautions given. RTC in 3 weeks for LAURI visit with ultrasound for cervical length or sooner if needed. 2. Placenta previa with subchorionic hemorrhage noted in the lower uterine segment and adjacent to the internal os: Ultrasound findings were discussed with patient in detail and all questions were answered. The risks were discussed with patient and all her questions were answered. Physical examination today including sterile speculum examination showed no blood in the vaginal vault, no pooling, negative Valsalva. The cervix was grossly normal and visually closed. Pt was advised to participate in strict pelvic rest and no heavy lifting or strenuous activity until cleared by me. Pt VU. SAB and bleeding precautions given. Repeat ultrasound for placenta next visit. 3. History of section in [place] with her last secondary to failure to progress beyond 3 cm dilation. ROMR still pending. Flowsheet Date 05/17/2024 Duran Score Blood Edema Fundus Height Fundus Units Glucose Ketones Leukocytes Nitrite Labor Signs Protein Cervic Dilation Cervic Effacement Cervic Station none none none neg Type Weight in lbs Pre/Post Dialysis Refused 168.586333154124 BP Diastolic BP Location Tested BP Systolic BP Type 78 116 Fetus Heart Rate Present A 153 Present Fetus Movement A No Comments 1.LAURI: Patient has no OB com plaint's. Continue PNV QD. SAB precautions given. RTC in 2 weeks for LAURI visit with ultrasound for cervical length or sooner if needed. 2. History of LEEP: Patient had history of LEEP in 2017 for LAINEY-2 and in 2019 for LAINEY-3. Her Pap smear on 02/10/2024 was negative cytology, negative high-risk HPV. Recommendation for cervical length screening every 2 weeks starting at 16 to 24 weeks of . CXL screening today CXL 3.24cm. 3. History of section in [place] with her last secondary to failure to progress beyond 3 cm dilation. Patient states she was told this occurred secondary to her prior to LEEP procedures and cervical scarring. Discussed with patient's risks and benefits of repeat section versus TOLAC. All patient's questions were answered to her satisfaction. ROMR reviewed confirming LTCS at 39w3d due to arrest of dilation with cervical stenosis. 4. Placenta previa with subchorionic hemorrhage noted in the lower uterine segment and adjacent to the internal os: LONNIE resolved today. Placenta is still marginal previa being 1.6-2cm from internal os with free floating umbilical cord noted in MAGGIE. Ultrasound findings were discussed with patient in detail and all questions were answered. The risks were discussed with patient and all her questions were answered. Pt was advised to continue to participate in strict pelvic rest and no heavy lifting or strenuous activity until cleared by me. Pt VU. SAB and bleeding precautions given. Repeat ultrasound for placenta next visit. Flowsheet Date 05/27/2024 Duran Score Blood Edema Fundus Height Fundus Units Glucose Ketones Leukocytes Nitrite Labor Signs Protein Cervic Dilation Cervic Effacement Cervic Station none none none neg 0cm 0% -4 Type Weight in lbs Pre/Post Dialysis Refused Dry 170.060400532930 BP Diastolic BP Location Tested BP Systolic BP Type 76 122 Fetus Heart Rate Present A 140 Present Fetus Movement A No Comments 1.LAURI: Patient has no OB com plaint's. Patient desires maternal AFP testing today. Continue PNV QD. SAB precautions given. RTC in 2 weeks for LAURI visit with ultrasound for cervical length or sooner if needed. 2. History of LEEP: Cervical length 3.62 cm, closed cervix with no funneling noted. Contraction was noted on ultrasound and cervix was checked and noted to be closed/long/high. Continue with cervical length screening every 2 weeks until 24 weeks. 3. History of section in [place] with her last at 39w3d due to arrest of dilation with cervical stenosis. Patient will think about how she would like to deliver and we will discuss again at next visit.4. Placenta previa: Resolved on ultrasound today. 5. Intermittent maternal tachycardia: Patient states she is feels her heart racing with a heart rate of 140s at home. She states that she does have a history of anxiety and thinks perhaps this could be related to episodes of anxiousness. Her vital signs are within normal limits today. EKG, CBC and thyroid function testing ordered today. She declines referral to cardiology. Alarm symptoms discussed with patient and she was advised to go to the hospital immediately if present. Flowsheet Date 06/10/2024 Duran Score Blood Edema Fundus Height Fundus Units Glucose Ketones Leukocytes Nitrite Labor Signs Protein Cervic Dilation Cervic Effacement Cervic Station none none none neg Type Weight in lbs Pre/Post Dialysis Refused 173.706651900998 BP Diastolic BP Location Tested BP Systolic BP Type 64 110 Fetus Heart Rate Present A 146 Present Fetus Movement A Yes Comments 1.LAURI: Patient has no OB com plaint's. Maternal AFP testing negative. Anatomy ultrasound completed today. Continue PNV QD. SAB precautions given. RTC in 2 weeks for LAURI visit with ultrasound for cervical length or sooner if needed. 2. History of LEEP: Cervical length 3.79 cm, closed cervix with no funneling noted. Contraction was noted on ultrasound and cervix was checked and noted to be closed/long/high. Continue with cervical length screening every 2 weeks until 24 weeks. 3. History of section in [place] with her last secondary to failure to progress beyond 3 cm dilation. Patient still undecided on mode of delivery.4. Intermittent maternal tachycardia: Patient states she is feels her heart racing with a heart rate of 140s at home. She states that she does have a history of anxiety and thinks perhaps this could be related to episodes of anxiousness. Her vital signs are within normal limits today. EKG 05/27 within normal limits. CBC and TFT within normal limits 05/27/2024.She declines referral to cardiology. Alarm symptoms discussed with patient and she was advised to go to the hospital immediately if present. Flowsheet Date 06/22/2024 Duran Score Blood Edema Fundus Height Fundus Units Glucose Ketones Leukocytes Nitrite Labor Signs Protein Cervic Dilation Cervic Effacement Cervic Station none none Pressure neg 0cm 0% - 4 Type Weight in lbs Pre/Post Dialysis Refused Weight 174.511916933731 BP Diastolic BP Location Tested BP Systolic BP Type 70 112 Fetus Heart Rate Present A 150 Present Fetus Movement A Yes Comments 1.LAURI: Patient has no OB com plaint's. Continue PNV QD. labor precautions and kick counts were given. RTC in 2 weeks for LAURI visit with ultrasound for cervical length or sooner if needed. 2. History of LEEP: Cervical length 3.79 cm on 06/10. CXL today 2.55 cm, closed cervix with no funneling noted. Patient has had intermittent tightening of her uterus over the weekend wtih pressure today. On cervical check today, the cervix is closed/long/high. Patient's case was discussed with Dr. Neri or CALVIN who will see patient next week in outpatient consultation. Pelvic rest and strict precautions were given. Patient was advised to go to the hospital immediately with signs or symptoms of labor. Patient voiced understanding. 3. History of section in [place] with her last secondary to failure to progress beyond 3 cm dilation. Patient desires to proceed with scheduling repeat section but would like to [place] if she presents to labor and delivery with spontaneous cervical dilation. Request form for repeat at [facility] for 39 weeks was placed today. 4. Intermittent maternal tachycardia: Improved. Flowsheet Date 07/08/2024 Duran Score Blood Edema Fundus Height Fundus Units Glucose Ketones Leukocytes Nitrite Labor Signs Protein Cervic Dilation Cervic Effacement Cervic Station none none none neg Type Weight in lbs Pre/Post Dialysis Refused 176.534427609569 BP Diastolic BP Location Tested BP Systolic BP Type 74 110 Fetus Heart Rate Present A 142 Present Fetus Movement A Yes Comments 1.LAURI: Patient has no OB com plaint's. Continue PNV QD. labor precautions and kick counts were given. RTC in 4 weeks for LAURI visit with Glucola, 28 wk labs, Rhogam and Tdap or sooner if needed. 2. History of LEEP: Cervical length 3.79 cm on 06/10. CXL on 06/22 of 2.55 cm, closed cervix with no funneling noted. Patient was seen by MFM on 06/30 with CXL ultrasound noted to be 25.5-24mm at that time. No cerclage was indicated as patients cervical length was > 10mm and closed on PE with no history of PTD. Patient was started on vaginal progesterone. Patient is complaint with using vaginal progesterone and denies side effects. Pelvic rest and strict precautions were given. Patient was advised to go to the hospital immediately with signs or symptoms of labor. Patient voiced understanding. 3. History of section in [place] with her last secondary to failure to progress beyond 3 cm dilation. Patient desires to proceed with scheduling repeat section but would like to TOLAC if she presents to labor and delivery with spontaneous cervical dilation. Repeat scheduled at [facility] for 39 weeks on 10/24/2024. Flowsheet Date 08/05/2024 Duran Score Blood Edema Fundus Height Fundus Units Glucose Ketones Leukocytes Nitrite Labor Signs Protein Cervic Dilation Cervic Effacement Cervic Station none 27 cm none Pressure neg 0cm 0% - 4 Type Weight in lbs Pre/Post Dialysis Refused 182.471095980164 BP Diastolic BP Location Tested BP Systolic BP Type 78 120 Fetus Heart Rate Present A 155 Present Fetus Movement A Yes Comments 1.LAURI: Patient complains of pressure. Patient has no other OB complaint's. Cervix closed/long/high. Glucola ordered today. Continue PNV QD. Strict labor precautions and strict kick counts were given. RTC in 2 weeks for LAURI visit with 28 wk labs, Rhogam and Tdap or sooner if needed. 2. History of LEEP with shortened cervical length on vaginal progesterone. Pelvic rest and strict precautions were given. Patient was advised to go to the hospital immediately with signs or symptoms of labor. Patient voiced understanding. 3. History of section in [place] with her last secondary to failure to progress beyond 3 cm dilation. Repeat scheduled at [facility] for 39 weeks on 10/24/2024.4. Vasovagal episodes with heart palpitations: Vital signs within normal limits today. EKG ordered today. Cardiology referral ordered. Patient was given alarm symptoms and advised to the hospital immediately if present. Patient voiced understanding.5. Hemorrhoids: On physical examination today there is a small 5 mm external hemorrhoid. There is no incarceration of the hemorrhoid noted. Patient was advised to use Anusol and Tucks as needed. She states she is not constipated. She was advised to continue with water, fiber in her diet. Patient voiced understanding.6.Girl, breast feeding, depo or nexplanon Flowsheet Date 08/09/2024 Duran Score Blood Edema Fundus Height Fundus Units Glucose Ketones Leukocytes Nitrite Labor Signs Protein Cervic Dilation Cervic Effacement Cervic Station none 28 cm none none neg Type Weight in lbs Pre/Post Dialysis Refused [id number] BP Diastolic BP Location Tested BP Systolic BP Type 82 126 Fetus Heart Rate Present A 140 Present Fetus Movement A Yes Comments 1.LAURI: Patient has no OB com plaints. 28-week labs reviewed. Tdap and RhoGAM administered today. Continue PNV QD. Strict labor precautions and strict kick counts were given. RTC in 2 weeks for LAURI visit or sooner if needed. 2. Vasovagal episodes with heart palpitations: Vital signs within normal limits today. EKG 08/05/2024 normal sinus rhythm with nonspecific T wave changes. Cardiology referral ordered. Patient was given alarm symptoms and advised to the hospital immediately if present. Patient voiced understanding. 3. Glucola 145, 3-hour oral glucose tolerance test within normal limits.4. Anemia in : Hemoglobin 10.6 on 08/08. Vital signs are normal. No signs or symptoms of anemia. Patient to continue with iron and Colace supplementation. Flowsheet Date 08/22/2024 Duran Score Blood Edema Fundus Height Fundus Units Glucose Ketones Leukocytes Nitrite Labor Signs Protein Cervic Dilation Cervic Effacement Cervic Station Type Weight in lbs Pre/Post Dialysis Refused With clothes 186.252262142142 BP Diastolic BP Location Tested BP Systolic BP Type 70 L arm 120 sitting Fetus Heart Rate Present Fetus Movement Comments Flowsheet Date 08/25/2024 Duran Score Blood Edema Fundus Height Fundus Units Glucose Ketones Leukocytes Nitrite Labor Signs Protein Cervic Dilation Cervic Effacement Cervic Station none 30 cm none none neg 0cm 0% -4 Type Weight in lbs Pre/Post Dialysis Refused 190.237685849562 BP Diastolic BP Location Tested BP Systolic BP Type 86 132 Fetus Heart Rate Present A 130 Present Fetus Movement A Yes Comments 1.LAURI: Patient complains of questionable watery discharge for the last 1 week that is intermittent. She states that the last time she had this discharge was approximately 1:30 PM yesterday. She denies any active leakage of fluid. Sterile speculum examination normal, no pooling, negative Valsalva, negative fern. Cervix closed/long/high. MVP 4.3 cm today. She does admit to pruritus over her whole entire body but denies rash. She denies pruritus on her palms of her hands or soles of her feet. Bile acids ordered today, patient advised to use Benadryl as needed. Patient has no other OB complaints. Continue PNV QD. Strict labor precautions and strict kick counts were given. RTC in 2 weeks for LAURI visit or sooner if needed. 2. Vasovagal episodes with heart palpitations: Vital signs within normal limits today. EKG 08/05/2024 normal sinus rhythm with nonspecific T wave changes. Cardiology appointment 08/[address] Mcclain. Echo scheduled for 08/31. Patient was given alarm symptoms and advised to the hospital immediately if present. Patient voiced understanding. Flowsheet Date 09/13/2024 Duran Score Blood Edema Fundus Height Fundus Units Glucose Ketones Leukocytes Nitrite Labor Signs Protein Cervic Dilation Cervic Effacement Cervic Station none 33 cm none Pressure neg 0cm 0% - 4 Type Weight in lbs Pre/Post Dialysis Refused Dry 191.701782845849 BP Diastolic BP Location Tested BP Systolic BP Type 76 122 Fetus Heart Rate Present A 145 Fetus Movement A Yes Comments 1.LAURI: Patient complains of lower back discomfort with pressure. Cervix closed/long/high. Patient has no other OB complaints. Continue PNV QD. Strict labor precautions and strict kick counts were given. RTC in 1 week for LAURI visit or sooner if needed. 2. GERD: Pepcid increased to twice daily today.3. Diffuse pruritus improved, bile acids on 08/25 of .1. Patient denies pruritus on hands and soles. Flowsheet Date 09/20/2024 Duran Score Blood Edema Fundus Height Fundus Units Glucose Ketones Leukocytes Nitrite Labor Signs Protein Cervic Dilation Cervic Effacement Cervic Station none 34 cm none none neg Type Weight in lbs Pre/Post Dialysis Refused 191.322801893314 BP Diastolic BP Location Tested BP Systolic BP Type 76 120 Fetus Heart Rate Present A 142 Present Fetus Movement A Yes Comments #131.LAURI: Patient has no OB complaints. Continue PNV QD. Strict labor precautions and strict kick counts were given. RTC in 1 week for LAURI visit or sooner if needed. Flowsheet Date 09/27/2024 Duran Score Blood Edema Fundus Height Fundus Units Glucose Ketones Leukocytes Nitrite Labor Signs Protein Cervic Dilation Cervic Effacement Cervic Station none 35 cm none none neg Type Weight in lbs Pre/Post Dialysis Refused 193.242066109976 BP Diastolic BP Location Tested BP Systolic BP Type 88 138 Fetus Heart Rate Present A 145 Present Fetus Movement A Yes Comments 1.LAURI: Patient has no OB com plaints. Continue PNV QD. Strict labor precautions and strict kick counts were given. RTC in 1 week for LAURI visit with growth ultrasound and GBS swab or sooner if needed. Flowsheet Date 10/04/2024 Duran Score Blood Edema Fundus Height Fundus Units Glucose Ketones Leukocytes Nitrite Labor Signs Protein Cervic Dilation Cervic Effacement Cervic Station none 36 cm none Bleeding neg Type Weight in lbs Pre/Post Dialysis Refused Dry 190.636959054495 BP Diastolic BP Location Tested BP Systolic BP Type 84 132 Fetus Heart Rate Present A 159 Present Fetus Movement A Yes Comments 1.LAURI: Patient does complain of some scant dark black discharge with wiping only this morning, patient states that she did have intercourse 3 days ago and did have an episode of diarrhea with nausea and vomiting and GI bug on Thursday and Thursday. She does have a hemorrhoid. She denies any active bleeding, contractions or pain. On sterile speculum examination today the cervix is normal however there is a small 2 to 3 mm polyp noted on the inferior portion of the cervical edge to that vagina that is nonfriable and nontender. There are no cervical masses, lesions. There is no blood, no pooling, no discharge and the cervix is visually closed. There is a small external hemorrhoid noted. On digital examination the cervix is closed/long/high. GBS swab collected today. Patient has no other OB complaints. Growth ultrasound today EFW 40.2%, 2809 g. Continue PNV QD. Strict labor precautions and strict kick counts were given. RTC in 1 week for LAURI visit or sooner if needed. Flowsheet Date 10/10/2024 Duran Score Blood Edema Fundus Height Fundus Units Glucose Ketones Leukocytes Nitrite Labor Signs Protein Cervic Dilation Cervic Effacement Cervic Station none 37 cm none Uterine Contract ions neg Type Weight in lbs Pre/Post Dialysis Refused Dry 192.144883382933 BP Diastolic BP Location Tested BP Systolic BP Type 76 124 Fetus Heart Rate Present A 155 Fetus Movement A Yes Comments #161.LAURI: Patient complains of intermittent contractions. Cervix is closed/long/high. GBS swab negative. Patient has no other OB complaints. Continue PNV QD. Strict labor precautions and strict kick counts were given. RTC in 1 week for LAURI visit or sooner if needed. Flowsheet Date 10/20/2024 Duran Score Blood Edema Fundus Height Fundus Units Glucose Ketones Leukocytes Nitrite Labor Signs Protein Cervic Dilation Cervic Effacement Cervic Station none 39 cm none Uterine Contract ions neg 0cm 0% -4 Type Weight in lbs Pre/Post Dialysis Refused 193.969909875544 BP Diastolic BP Location Tested BP Systolic BP Type 86 128 Fetus Heart Rate Present A 130 Present Fetus Movement A Yes Comments #171.LAURI: Patient complains of intermittent contractions. Cervix is closed/long/high. Patient has no other OB complaints. Continue PNV QD. Strict labor precautions and strict kick counts were given. RTC in 1 week for incision check from 10/24 at [facility] or sooner if needed. Flowsheet Date 11/01/2024 Duran Score Blood Edema Fundus Height Fundus Units Glucose Ketones Leukocytes Nitrite Labor Signs Protein Cervic Dilation Cervic Effacement Cervic Station Type Weight in lbs Pre/Post Dialysis Refused Weight 178.181317315341 BP Diastolic BP Location Tested BP Systolic BP Type 76 112 Fetus Heart Rate Present Fetus Movement Comments Menstrual History Last Menstrual Date Menses Monthly On Bcp Conception Prior Menses Frequency Hcg Plus Date Menarche Onset Age 0701/23/2024 true true 28 16 Genetic Screening And Infection History Question Response Note Patient's Age Will Be 35 Yea rs Or Older At Estimated Date of Delivery false Thalassemia (German, Norwegian, Mediterranean, Or Background): MCV < 80 false Neural Tube Defect (Meningom yelocele, Spina Bifida, Or Anencephaly) false Congenital Heart Defect false Down Syndrome false Sukhjinder-Sachs (eg, Tenriism, Cajun, Polish-Citizen Of [place]) f alse Margie Disease false Sickle Cell Disease Or Trait () false Hemophilia Or Other Blood Disorders false Muscular Dystrophy false Cystic Fibrosis false Roberts's Chorea false Intellectual Disability/Autism false If Yes, Was Person Tested For Fragile X? false Other Inherited Genetic Or Chromosomal Disorder false Maternal Metabolic Disorder (eg, Type 1 Diabetes , PKU) false Patient Or Baby's Father Had A Child With Defects Not Listed Above false Recurrent Loss, Or A Stillbirth false Medications (including Suppl ements, Vitamins, Herbs, OTC Drugs), Illicit/Recreational Drugs, Alcohol true PNV, tylen ol PRN If Yes, Agent(s) And Strength/Dosage false Any Other Genetic History false Live With Someone With TB Or Exposed To TB false Patient Or Partner Has History Of Genital Herpes false Rash Or Viral Illness Since Last Menstrual Perio d false History Of STD, Gonorrhea, Chlamydia, HPV, Syphi lis false Other Infection History false Prior GBS-infected child false History of HIV false History of Hepatitis false Hemoglobinopathy Or Carrier false Other Structural Defect false Recent Travel History Outside of Country false Developmental Delay false Autism false Plans and Education First Trimester Discussed Date Discussion Item Discussion Note Discuss ed By 03/13/2024 Avoidance of saunas or hot tubs [facility] 03/13/2024 Screening for aneuploidy [facility] 03/13/2024 Intimate partner violence [facility] 03/13/2024 HIV and other routine tests [facility] 03/13/2024 Weight gain counseling [facility] 03/13/2024 Environmental/work hazards s [facility] 03/13/2024 Illicit/recreational drugs s [facility] 03/13/2024 Indications for ultrasonography [facility] 03/13/2024 Travel [facility] 03/13/2024 Tobacco/smoking cess ation counseling (ask, advise, assess, assist, and arrange) [facility] 03/13/2024 [facility] 03/13/2024 Use of any medicatio ns (including supplements, vitamins, herbs, or OTC drugs) [facility] 03/13/2024 Seat belt use [facility] 03/13/2024 Risk factors identif ied by history [facility] 03/13/2024 Anticipated course of care [facility] 03/13/2024 Sexual activity [facility] 03/13/2024 Dental care [facility] 03/13/2024 Nutrition counseling ; special diet; dietary precautions (mercury, listeriosis) [facility] 03/13/2024 Toxoplasmosis precautions (cats/raw meat) [facility] 03/13/2024 Exercise [facility] 03/13/2024 Teratogens [facility] 03/13/2024 Alcohol [facility] 03/13/2024 Childbirth classes/hospital facilities [facility] Second Trimester Discussed Date Discussion Item Discussion Note Discuss ed By 08/09/2024 Signs and symptoms of labor [facility] 08/09/2024 Selecting a care provider [facility] 08/09/2024 Tobacco/smoking cess ation counseling (ask, advise, assess, assist, and arrange) [facility] 08/09/2024 Abnormal lab values [facility] 08/09/2024 Depression screening (when indicated) [facility] Third Trimester Discussed Date Discussion Item Discussion Note Discuss ed By 08/09/2024 Tobacco/smoking cess ation counseling (ask, advise, assess, assist, and arrange) [facility] 08/09/2024 Intimate partner violence [place] 08/09/2024 [place] education (n ewborn screening, jaundice, SIDS/safe sleeping position, car seat) [facility] 08/09/2024 Family medical leave or disability forms [facility] Delivery Information Delivery Date Delivery Type Labor Anesthesia Weeks Gestation Incision Type Labor Labor Length Hrs Delivered By Post Complications Tubal Sterilization Discharge Date Comments 5 None [facility] 39.2 Low Transvers e false Monalisa Ramirez MD false Discharge Information Feeding Method Contraceptive Method Maternal HG B and HCT Levels Breast
--- OUTSIDE RECORDS SUMMARY | 2024-11-07 18:07 | XMS_ITS | Data Portability ---
Author Organization MD - [facility], [facility] Address [address] [place] [address] Assessment No assessment recorded. Plan of Treatment Reminders Order Date Submit Date Provider Last Modified By Organization Details Last Modified Time Details Appointments None recorded. Lab test, urine 2022 023 dayo Tejada, [address], [place], [address], 08:59:43 test, urine 2022 023 dayo Tejada, [address], [place], [address], 17:07:46 Referral None recorded. Procedures induction of labor (PROC) 2021 022 [email or web address] 1 Not available 17:30:20 Surgeries None recorded. Imaging None recorded. Medication Orders medroxyprog esterone 150 mg/mL intramuscul ar syringe 2022 023 [facility][id number], [address], [place], [place], [id number], 08:59:43 medroxyprog esterone 150 mg/mL intramuscul ar suspension 2022 023 [facility] #[id number], [address], [place], [place], [phone], 3 17:07:46 medroxyprog esterone 150 mg/mL intramuscul ar suspension 2022 023 [facility][id number], [address], [place], , [phone], 3 15:00:48 Patient TargetsNo targets recorded. Patient InstructionsNo instructions recorded. Reason for Referral None Reported. Results Created Date Observation Date Name Description Value Unit Range Abnormal Flag Note LastModifiedBy Organization Detail LastModifiedTime 05/16/20 22 05/17/2022 HIV 1/2 AB SCREE N W/P24 AG HIV 1/2 Ab screen w/p24ag Non-Re active non-re active Not Available [facility]) [address] [place] [address] Dr Montalvo, [place], [address], 05/19/2022 13:29:11 05/16/20 22 05/19/2022 GROUP B STREP DETEC TION BY PCR GB specimen source Vagina l/Rect al Not Available [facility] ([facility]) [address] [place] [address] Dr Montalvo, [place], [address], 05/19/2022 13:29:12 05/16/20 22 05/19/2022 GROUP B STREP DETEC TION BY PCR spec type Cultur e Swab Not Available [facility] ([facility]) [address] [place] [address] Dr Montalvo, [place], [address], 05/19/2022 13:29:12 05/16/20 22 05/19/2022 GROUP B STREP DETEC TION BY PCR group B strep by PCR Not Detect ed not detect ed Inter preta tion: A posit herber resul t indic ates the detec tion of Group B Strep tococ cus DNA but not neces saril y the prese nce of viabl e organ isms; it is presu mptiv e for the prese nce of Group B Strep tococ cus. A negat herber resul t does not exclu de the possi bilit y of infec tion since very low level s of micro organ ism or sampl ing error may cause a false negat herber resul t. This assay is highl y accur ate, but rare false posit herber and false negat herber resul ts may occur . Metho dolog y: This resul t was deter mined using the FDA-c leare d BD Max GBS Assay . The BD Max GBS Assay is a quali tativ e in vitro diagn ostic test for the rapid detec tion of Group B Strep tococ cus (GBS) DNA in vagin al/re ctal speci mens from prepa rtum or intra partu m women utili zing real- time PCR. Perfo rmed by [facility] d[facility]/a [facility], [address] [facility] M, [place] [address] , Franki Gunn ra, DO, Labor atory Direc tor. Not Available [facility] ([facility]) [address], [place], [address], 05/19/2022 13:29:12 07/09/19 23 07/09/2022 pregn saloni test, urine HCG negati ve Not Available [facility] [address] [facility] [address], [place], [address], 07/09/2022 15:22:31 11/07/19 23 11/06/2022 pregn saloni test, urine HCG negati ve Not Available [facility] [address] [facility] [address], [place], [address], 11/06/2022 14:47:23 05/05/20 22 05/05/2022 US, obste tric, bioph ysica l profi le No observ ation record ed. dayo Tejada ([place]) [facility] [address] [facility], [place], [address], 05/16/2022 16:05:33 05/16/20 22 05/16/2022 US, obste tric, bioph ysica l profi le No observ ation record ed. ITA Tejada ([place] - [facility] [address], [place], [address], 05/16/2022 20:40:52 Result Notes None recorded. Problems Name Problem SNOMED Code Status Onset Date Resolution Date Notes Provider Name and Address Organization Details Recorded Time Pregnanc y 92897650 Completed 202106/06/2022 Yanni Newby null, [facility] 2 15:31:39 History of loop electros urgical excision procedur e 80986788919 102 Active w/ Dr. Maylin Booth, records requeste d Yanni Newby null, [facility] 2 15:31:25 History of loop electros urgical excision procedur e 41353901651 102 Completed w/ Dr. Maylin Booth, records requeste d Yanni Odin null, [facility] 2 15:31:25 Maternal tobacco use in pregnanc y 35238695409 9107 Active dips, cutting back Yanni Odin null, [facility] 2 15:31:26 Disease of respirat ory system complica ting pregnanc y 076477407 Active exercise induced asthma Yanni Odin null, [facility] 2 15:31:25 Maternal tobacco use in pregnanc y 89637103258 9107 Completed dips, cutting back Yanni Odin null, [facility] 2 15:31:26 Disease of respirat ory system complica ting pregnanc y 250782160 Completed exercise induced asthma Yanni Odin null, [facility] 2 15:31:25 RhD negative 704964294 Active Rhogam given 03/17 Yanni Odin null, [facility] 2 15:31:26 Anemia of pregnanc y 73914592 Active Yanni Odin null, [place] [facility] 2 15:31:25 RhD negative 930324666 Completed Rhogam given 03/17 Yanni Newby null, [place] [facility] 2 15:31:26 Anemia of pregnanc y 95523994 Completed Yanni Newby null, [place] [facility] 2 15:31:25 Abnormal chromoso mal and genetic finding on antenata l screenin g of mother 908229125 Completed 1:104 risk T21 on Quad screen, Panorama low risk male Yanni Newby null, [place] [facility] 2 15:31:26 Threaten ed prematur e labor - not delivere d 963743590 Active 2021 Wendi Tapiamanju kasper, [facility] 2 15:05:24 Infectio us disorder of kidney 507621211 Active Wendi Tapia null, [place] [facility] 2 15:05:25 Problem Notes None recorded. Procedures Surgical History Date Name Laterality Status Provider Name and Address Organization Details Recorded Time 09/05/2021 Date of Last Pap Smear completed Wendi Mckeono [facility] 12/23/2021 11:23:37 2018 [facility] 12/23/2021 11:23:46 Imaging Results Imaging Date Name Status LastModified by Organiz ation Details LastModified Time 05/05/2022 US, obstetric, biophysical profile completed dayo Te[place]ada ([place] - [facility] [address], [place], [address], 05/16/2022 16:05:33 05/16/2022 US, obstetric, biophysical profile completed ITA Louis Tejada ([place] - [facility] [address], [place], [address], 05/16/2022 20:40:52 Procedure Notes None recorded. Medical Equipment None Reported. Allergies Allergen ID Allergen Name Allergen Category Reaction Reaction Severity Criticality Documentation Date Start Date Code Code System Note Provider Name and Address Organization Details Recorded Time 03819 No known allergy (situatio n) Not available Not available Not available Not available 04/23/2022 87774 6003 SNMEERA Wendi Willie kasper MD - [facility] 2 15:05:14 Medications Name Sig Start Date Stop Date Status Note LastModified by Organization Details LastModified Time medroxypr ogesteron e 10 mg tablet TAKE 1 TABLET BY MOUTH EVERY DAY WITH FOOD FOR 10 DAYS 07/08 completed Not Available Not Available Not Available hydrocodo ne 5 mg-acetam inophen 325 mg tablet 07/08 completed Not Available Not Available Not Available promethaz ine 12.5 mg tablet TAKE 1 TABLET BY MOUTH EVERY 6 HOURS FOR 10 DAYS NEEDED 07/08 completed Not Available Not Available Not Available ondansetr on HCl 4 mg tablet 07/08 completed Not Available Not Available Not Available butalbita l-acetami nophen-ca ffeine 50 mg-325 mg-40 mg tablet TAKE 1 TABLET BY MOUTH EVERY 4 HOURS NEEDED FOR HEADACHE 07/08 completed Not Available Not Available Not Available benzonata te 100 mg capsule 07/08 completed Not Available Not Available Not Available cephalexi n 500 mg capsule TAKE 1 CAPSULE BY MOUTH IN THE MORNING AND THEN 1 AT NOON AND THEN 1 AT BEDTIME FOR 7 DAYS 07/08 completed Not Available Not Available Not Available diclofena c sodium 75 mg tablet,de layed release 07/08 completed Not Available Not Available Not Available ibuprofen 600 mg tablet 07/08 completed Not Available Not Available Not Available medroxypr ogesteron e 150 mg/mL intramusc ular suspensio n ADMINIST ER 1 ML IN THE MUSCLE EVERY 3 MONTHS active Not Available Not Available No t Available amoxicill in 875 mg-potass ium clavulana te 125 mg tablet TAKE 1 TABLET BY MOUTH TWICE DAILY FOR 7 DAYS 07/08 completed Not Available Not Available Not Available Ventolin HFA 90 mcg/actua tion aerosol inhaler INHALE 1 PUFF BY MOUTH EVERY 4 TO 6 HOURS NEEDED 01/03 /2023 completed Not Available Not Available Not Available azithromy balwinder 500 mg tablet TAKE 1 TABLET BY MOUTH DAILY FOR 5 DAYS active Not Available Not Available No t Available medroxypr ogesteron e 150 mg/mL intramusc ular syringe Inject 1 mL every 3 months by intramus cular route. 2022 active Please NOTE if pt brought own meds (J1050,N C) or if office supply was used (J1050). Not Available Not Available Not Available promethaz ine 07/08 completed Not Available Not Available Not Available active Not Available Not Avai lable Not Available FeroSul 325 mg (65 mg iron) tablet TAKE 1 TABLET BY MOUTH EVERY DAY 07/08 completed Not Available Not Available Not Available RhoGAM Ultra-Ayaan tered PLUS 1,500 unit (300 mcg) intramusc ular syringe Inject 300 microgra ms by intramus cular route. 2021 active Not Available Not Available Not Avai lable Ed A-Hist DM 4 mg-10 mg-10 mg tablet TAKE 1 TABLET BY MOUTH EVERY 4 TO 6 HOURS NEEDED FOR NASAL CONGESTI ON active Not Available Not Available No t Available Tums Ultra 470 mg (as calcium carbonate 1,177 mg) chewable tablet Take 2354 mg by oral route. 07/08 completed Not Available Not Available Not Available albuterol sulf 90 mcg/actua tion breath activated powder inhaler,s ensor Inhale 2 puffs every 4 hours by inhalati on route. 07/08 completed Not Available Not Available Not Available Fergon 225 mg (27 mg iron) tablet 07/08 completed Not Available Not Available Not Available Vitals Date Recorded Body height Body mass index (BMI) Body weight Systolic blood pressure Diastolic blood pressure Provider Name and Address Organization Details Last Updated DateTime 05/22/2022 165.1 cm 28.3 kg/m2 60002.98 4426 g 118 mm[Hg] 70 mm[Hg] Real Galarza MD - [facility] 2 17:18:10 Date Recorded Body height Body mass index (BMI) Body weight Systolic blood pressure Diastolic blood pressure Provider Name and Address Organization Details Last Updated DateTime 05/28/2022 165.1 cm 28.5 kg/m2 05285.73 2218 g 112 mm[Hg] 74 mm[Hg] Meggan Leo [facility] 2 15:58:53 Date Recorded Body height Body mass index (BMI) Body weight Systolic blood pressure Diastolic blood pressure Provider Name and Address Organization Details Last Updated DateTime 07/08/2022 165.1 cm 24.9 kg/m2 81075.14 g 108 mm[Hg] 84 mm[Hg] Wendi Tapia [facility] 3 14:23:21 Social History Question Answer Notes LastModified by Organizat ion Details LastModified Time Tobacco Smoking Status Former Smoker Wendi kasper [facility] 12/23/2021 11:23:43 Do You Have An Advance Directive? No Information not available 12/23/2021 What Is Your Level Of Alcohol Consumption? None Information not available 12/23/2021 Are You Blind Or Do You Have Difficulty Seeing? No Information not available 12/23/2021 Is Blood Transfusion Acceptable In An Emergency? Yes Information not available 12/23/2021 Are You Currently Employed? Yes Information not available 12/23/2021 Are You Deaf Or Do You Have Serious Difficulty Hearing? No Information not available 12/23/2021 Do You Or Have You Ever Used E-cigarettes Or Vape? Former User Of Electronic Cigarettes Information not available 12/23/2021 What Is The Highest Grade Or Level Of School You Have Completed Or The Highest Degree You Have Received? [id number] Information not available 12/23/2021 What Is Your Occupation? [employer] Information not available 12/23/2021 Are You Currently In A Situation Or Relationship That Makes You Feel Unsafe Or Threatened? No Information not available 12/23/2021 How Many Children Do You Have? 4 Information not available 12/23/2021 What Is Your Relationship Status? Domestic Partner Information not available 12/23/2021 How Much Tobacco Do You Smoke? No Information not available 12/23/2021 Do You Use Any Illicit Or Recreational Drugs? No Information not available 12/23/2021 Do You Or Have You Ever Used Any Other Forms Of Tobacco Or Nicotine? Yes Information not available 12/23/2021 Sex: Unknown Functional Status Question Answer Note LastModified by Organization D etails LastModified Time Are you able to walk? YESWOREST Information not available 12/23/2021 Mental Status None recorded. Family History Relationship Description Onset Age of this Age Resolved Age Notes LastModified by Organization Details LastModified Time Paternal Grandfather Myocardial infarction Not available 12/23 11:23:34 Paternal Grandfather Heart disease Not available 2021 11:23:34 Mother Diabetes mellitus Not available 2021 11:23:34 Paternal Grandmother Myocardial infarction Not available 12/23 11:23:34 Medical History Condition Response Other Cancer N Deep Vein Thrombosis (DVT)/Blood Clot in leg N Other N Colon Cancer N CPAP Machine for Sleep Apnea N Breast Cancer N Blood Transfusion N Drug/Latex Allergies/Reactions N Lung Disease N Defects or Inherited Disease N Breast Problem N Gestational Diabetes N Uterine Cancer N Migraine Headaches N Neurologic/Epilepsy/Seizure Disorder N Anxiety Disorder Y Autoimmune disease N Arthritis N Blood/Hematologic disorders N Cervical Cancer N Acid Reflux (GERD) Y Stroke N Crohn's Disease N High Cholesterol N Sickle Cell Disease N Fibromyalgia N Kidney Disease N Heart Problems N Sickle Cell Trait N Insulin Resistance/Pre-Diabetes N Thyroid Problems N Kidney or Bladder Problems N GI Problems N Eating Disorder N Cirrhosis of the liver N Anemia Y Celiac Disease N Varicella Infection (Chicken Pox), histo ry of N Osteopenia N Psychiatric Illness N Ovarian Cancer N Diabetes N Hepatitis/Liver Disease N Pulmonary Embolism / Blood Clot in Lung N Diverticulitis N Asthma N Varicella Vaccine (Chicken Pox vaccine) received N Bipolar Disorder N Ulcerative Colitis N Depression/ depression N Heart Disease N Hypertension N Osteoporosis N Gynecological History Statement/Question Response Cycles occur every days 26 Have you ever had an abnorma l pap smear (if yes, indicate if any of the following procedures were performed) Y Number of sexual partners in lifetime 7 Flow Moderate Chlamydia N Post Menopausal Bleeding N Date of last bone density/DEXA study N/a PCOS (Polycystic Ovarian Syndrome) N Genital Herpes N Age of first sexual activity 18 Not having periods due to: other (see no osbaldo) Infertility N HIV N Syphillis N If no, have you ever been sexually activ e? N Gonorrhea N HPV Vaccine received? Received only 1 sh ot Duration of Flow (days) 5 Current Control Method None Age at Menarche 18 Sexually Active? Y Date of Last Pap Smear 09/05/2021 Date of LMP 09/07/2021 Hormone Replacement Therapy N Obstetrics History GPAL:G 5 P 5 0 0 5 Type Value Full Term 5 Living 5 Total 5 Immunizations Vaccine Type Date Status Note Provider Nam clayton and Address Organization Details Recorded Time Influenza, MDCK, quadrivalent, PF 04/23/2022 completed Mamie Underwood MD [address] [facility], [place], [address], [facility] 04/23/2022 15:53:23 Tdap 03/17/2022 completed Real Galarza [facility] 05/22/2022 17:15:30 Past Encounters Encounter ID Performer Location Encounter Start Date Encounter Closed Date Diagnosis/Indication Diagnosis SNOMED-CT Code Diagnosis ICD10 Code Diagnosis Note [id number] MD WILLEM Martínez [address] [place] [address] [place] [id number] 12/23/2021 11:10:16 12/23/2021 12:37:15 screening 894480377 Z36.87 Disease of respiratory system complicating 744006305 O99.512 Maternal t obacco use in 3175334719 46288 O99.332 History of loop electrosurgical excision procedure 0241374577 9102 Z98.890 [id number] MD WILLEM Martínez [address] [place] [address] [place] [id number] 12/25/2021 14:10:46 12/25/2021 14:20:35 Chromosome abnormality screening 158341597 Z13.79 [id number] MD WILLEM Martínez [address] [place] [address] [place] [id number] 01/21/2022 11:11:02 01/21/2022 16:04:18 screening for malformation 288421571 Z36.3 Anemia of 2734 2003 O99.012 Maternal t obacco use in 3706189146 84314 O99.332 [id number] MD WILLEM Martínez ROSALINA [address] [place] [address] [place] [id number] 02/19/2022 09:57:57 02/19/2022 11:01:09 Abnormal finding on screening of mother 593619732 O28.3 Anemia of 2733 2003 O99.012 Disease of respiratory system complicating 852995655 O99.512 [id number] MD WILLEM Martínez ROSALINA [address] [place] [address] [place] , [id number] 03/05/2022 10:06:50 03/05/2022 10:35:20 screening 211690895 Z36.89 [id number] MD WILLEM Martínez ROSALINA [address] [place] [address] [place] , [id number] 03/12/2022 09:32:49 03/12/2022 12:04:58 Glucose tolerance test during - baby not yet delivered outside reference range 515589813 O99.810 [id number] MD WILLEM Olvera [place] [address] [place] [address] [place] , [id number] 03/17/2022 14:59:13 03/17/2022 16:34:42 Amniotic fluid leaking 100604676 O42.90 Administra tion of RhD immune globulin 3309828 Z29.13 screening for isoimmunization 933380541 Z36.5 Administra tion of diphtheria, pertussis, and tetanus vaccine 755349140 Z23 [id number] MD WILLEM MartínezOTO [address] [place] [address] [place] , [id number] 04/09/2022 16:09:00 04/09/2022 17:19:16 Anemia of 24314095 O99.013 Disease of respiratory system complicating 952536605 O99.513 [id number] MD WILLEM MartínezOTO [address] [place] [id number] 04/23/2022 14:48:30 04/23/2022 15:28:12 Anemia of 88182290 O99.013 Disease of respiratory system complicating 433300448 O99.513 Maternal t obacco use in 4865870973 71525 O99.332 Administra tion of influenza vaccine 59853196 Z23 [id number] MD WILLEM MartínezOTO [address] [place] [address] [place] , [id number] 05/05/2022 14:39:38 05/05/2022 16:10:36 Irregular heart rhythm 788262342 O36.8330 [id number] MD WILLEM Martínez [address] [place] [address] [place] , [id number] 05/16/2022 15:36:01 05/16/2022 16:33:50 screening 744256090 Z36.85 HIV blood screening test sent 934871919 Z36.89 Reduced fe sonya movement 918568440 O36.8199 [id number] MD WILLEM Olvera [address] [place] , [id number] 05/22/2022 17:02:37 05/22/2022 17:30:57 Disease of respiratory system complicating 709907105 O99.513 Maternal t obacco use in 3886310748 68374 O99.332 Anemia of 2733 2003 O99.013 [id number] MD WILLEM WilkinsOTO [address] [place] , [id number] 05/28/2022 15:50:33 05/28/2022 16:48:25 High risk 49487378 O09.893 [id number] MD WILLEM Martínez [address] [address] [place] , [id number] 07/08/2022 13:54:04 07/08/2022 14:31:39 care 205535730 Z39.2 Doing well. May resume normal activities . Return in September for pap. Would like Depo for contracept ion. Will return tomorrow for that. Maternal p ostpartum depression screening 0811798920 13882 Z13.32 depression screening reviewed - {{Negative * Positive }} screening Contracept ion care management 925408044 Z30.9 [id number] MD WILLEM Martínez [address],[facility] [address] [place] [id number] 07/09/2022 14:56:43 07/09/2022 15:28:35 Contraception care management 549704989 Z30.9 [id number] MD WILLEM Martínez [address],[facility] [address] [place] [id number] 11/06/2022 14:41:57 11/06/2022 16:41:54 Uses depot contraception 638317880 Z30.42 Health Concerns Section Related Observation LastModified by Organization Detai ls LastModified Time None Recorded Concern Status LastModified by Organization Details LastModified Time None Recorded Advance Directives Directive N: Payers Encounter Date Sequence Insurance Name Policy Number Policy Hanley Covered Member ID Hanley Member ID Guarantor Name 05/22/2022 1 [employer] [place] (MEDICAID REPLAC[place] - [place]MO) Eloisa Colin [id number] Eloisa Colin 05/28/2022 1 [employer] [place] - [place] Eloisa Colin [id number] Eloisa Colin 07/08/2022 1 [employer] [place] - [place] Eloisa Colin [id number] Eloisa Colin 07/09/2022 1 [employer] [place] Eloisa Colin [id number] Eloisa Colin 11/06/2022 1 [employer] [place] - [place] Eloisa Colin [id number] Eloisa Colin Notes Date Note Type Note Provider Name and Address Organization Details Recorded Time 07/08/2022 text/html VisitReported bypatient.Onset/Kirill ing:date of delivery: (06/03/22) Quality:primary C/S Context:good support from partner/family Associated Symptoms:no abnormal bleeding; no vaginal discharge; no pelvic pain; laceration well healed; no constipation; no fecal incontinence; no dysuria; no urinary incontinence; no fever; no problems; no mastitis; normal mood Patient here for 6wk PPV. Primary c/s for arrest of dilation. Severe cervical stenosis from previous LEEP. Was following with Dr. Maylin Booth prior to . Mamie Underwood MD [address] [place], [address], [facility] [employer] 07/08/2022 15:00:54 OBGyn Episode Ob Episode Information Episode Created Date Number of Fetuses Patient Bloodtype Patient rh Status Prepregnancy Weight lbs Domestic Partner Domestic Partner Phone Father Name Tool Analyst Status 12/24/19 22 1 O Negative CLOSED Fetus Data First Name Last Name Admitted to NICU Weight (g) Sex Living Outcome Pediatric Complications Fetus ID Race Codes Race Delivery Type 3370.77 [id number] M true Full Term [id number] Problems Problem Notes ok to circGBS negative Problem Name Start Date End Date Resolution Snomed Code Not e Maternal tobacco use in 082333069860234 dips, cuttin g back Disease of respiratory system complicating 078791249 exercise induce d asthma RhD negative 829183922 Rhogam given 03/17 Anemia of 91543021 History of loop electrosurgical excision procedure 58535628645966 w/ Dr. Maylin Booth, records requested Abnormal chromosomal and genetic finding on screening of mother 902920054 1:104 risk T21 on Quad screen, Panorama low risk male Nj Calculation Initial Nj Date Initial Exam Date Initial Exam Provider Initial Ultrasound Date Last Menstrual Period Date Ultra Sound Weeks Gestation 06/06/2022 12/23/2021 12/23/2021 16 Eighteen To Twenty Week Nj Update Ultra Sound Date Fundal Height At Umbil Quickening Date Ultra Sound Latest Weeks Gestation Final Nj Confirmed By Final Nj Confirmed Date Final Nj Date Ultra Sound Latest Days Gestation 0 jmcadory 12/23/2021 06/06/20 22 0 Pre-lianet Flowsheet Flowsheet Date 12/23/2021 Duran Score Blood Edema Fundus Height Fundus Units Glucose Ketones Leukocytes Nitrite Labor Signs Protein Cervic Dilation Cervic Effacement Cervic Station neg none negative none Negative neg Type Weight in lbs Pre/Post Dialysis Refused Weight 155.795735129622 BP Diastolic BP Location Tested BP Systolic BP Type 68 R arm 120 sitting Fetus Heart Rate Present A Present Fetus Movement Comments 1+UBG, IOB, patient with rec ent pap/ Bx with Dr. Maylin Booth. Will request records. Has prior LEEP. CL normal today on u/s. Plan for anatomy at next visit. Will use u/s dating today for [place] 06/06/22. ACOG info on n/v, back pain, exercise and nutrition given. Discussed quad screen. COVID vaccine recommended. U/S in ER on 12/09 consistent with [place] established today. Will get quad screen today. Has had 2 prior LEEPs. Last in [place] in 2018 or 2019. Had f/u as above with Dr. Booth. Flowsheet Date 12/25/2021 Duran Score Blood Edema Fundus Height Fundus Units Glucose Ketones Leukocytes Nitrite Labor Signs Protein Cervic Dilation Cervic Effacement Cervic Station Type Weight in lbs Pre/Post Dialysis Refused BP Diastolic BP Location Tested BP Systolic BP Type Fetus Heart Rate Present Fetus Movement Comments Flowsheet Date 01/21/2022 Duran Score Blood Edema Fundus Height Fundus Units Glucose Ketones Leukocytes Nitrite Labor Signs Protein Cervic Dilation Cervic Effacement Cervic Station neg none negative none Negative neg Type Weight in lbs Pre/Post Dialysis Refused Weight 156.325595064430 BP Diastolic BP Location Tested BP Systolic BP Type 70 R arm 110 sitting Fetus Heart Rate Present A 136 Fetus Movement A Yes Comments Anatomy today, f/u views nee ded. Panorama normal low risk. Some irregular cramping. PTL precautions discussed, no vb, no LOF taking PNV. Good FM. c/o heartburn. Discussed options for management. Flowsheet Date 02/19/2022 Duran Score Blood Edema Fundus Height Fundus Units Glucose Ketones Leukocytes Nitrite Labor Signs Protein Cervic Dilation Cervic Effacement Cervic Station neg none negative none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
--- OUTSIDE RECORDS SUMMARY | 2024-11-07 18:07 | XMS_ITS | Encounter Summary ---
Author Organization [facility] - [facility] Address [address] [place] [id number] Care Team Providers Care Columnist Name Role Phone Delmar Watson MD Primary Care Provider Encounter Details Date Type Department Care Team (Late st Contact Info) Description 12/11/2018 Abstract SFL CONVERSION [address] [place] [address] , Generic Conversion, Social History Tobacco Use Types Packs/Day Years Used Date Smoking Tobacco: Never Assessed Comments Unknown Sex and Gender Information Value Date Recorded Sex Assigned at Female 2024 6:18 AM LINER HELPER Legal Sex Female 10:12 PM LINER HELPER Gender Identity Female 10/24/2024 1:57 PM CDT Sexual Orientation Not on file documented as of this encounter Plan of Treatment Not on file documented as of this encounter Visit Diagnoses Not on filedocumented in this encounter Additional Health Concerns Infection Onset Date Last Indicated Resolved Time COVID-19 Rule Out 06/11/2020 06/11/2020 06/11/2020 4:30 PM LINER HELPER documented as of this encounter Care Teams Columnist Relationship Specialty Start Date End Date Delmar Watson MD [address] [place] [address] PCP - General FAMILY PRACTICE 01/25/19 documented as of this encounter
--- NOTE | 2024-11-07 18:12 | ED.GENADULT ---
HPI - General Adult General Chief complaint: Upper Respiratory Infection Stated complaint: nausea, vomiting, diarrhea, fever Time Seen by Provider: 11/07/24 18:12 Source: patient History of Present Illness HPI narrative: PATIENT DROVE HERSELF TO THE EMERGENCY ROOM FROM HOME WITH HER NEW 2-WEEK-OLD BABY COMPLAINING OF FEELING HOT, HEADACHE, NAUSEA, DIARRHEA MAXIMUM TWICE OVER THE LAST 24 HOURS. PATIENT REPORT THAT 1 OF HER DAUGHTERS HAD SIMILAR SYMPTOMS 3 DAYS AGO LASTED FOR 1 DAY. REPORTS 1 OF HER FAMILY GOT SIMILAR SICKNESS TODAY. PATIENT DENIES ANY SORE THROAT, RUNNY NOSE, SNEEZING, COUGHING, ABDOMINAL PAIN, URINARY SYMPTOMS, NAUSEA, VOMITING,SMELLY VAGINAL DISCHARGE. PATIENT IS 8, PARA 6, DENIED ANY NEW VAGINAL DISCHARGE COMPARED TO THE PREVIOUS DISCHARGE. PATIENT HAD TYLENOL 2 HOURS PRIOR TO ARRIVAL. Related Data Allergies Allergy/AdvReac Type Severity Reaction Status Date / Time amoxicillin (From Amoxil) Allergy Unknown Verified 11/07/24 18:06 [facility] Past Medical History Medical History History of cervical cancer Social History Social History Smoking status: Never smoker Alcohol intake: current Alcohol use details: occasionally Substance use: never Living arrangements: with family Exam Narrative: GENERAL APPEARANCE: WELL-DEVELOPED, WELL-NOURISHED SKIN: NORMAL COLOR HEAD: NORMOCEPHALIC, NONTRAUMATIC EYES: CLEAR CONJUNCTIVA ENT: OROPHARYNX NORMAL, EARS NORMAL, NOSE NORMAL NECK: SUPPLE, NONTENDER CHEST AND RESPIRATORY: AIRWAY PATENT, NO RESPIRATORY DISTRESS, NO ACCESSORY MUSCLE USE . LEFT BREAST SHOWING REDNESS, WARMTH ANTERIORLY SLIGHTLY TENDER. HEART: REGULAR RATE/RHYTHM ABDOMEN: SOFT, NONTENDER, NO ORGANOMEGALY, QUIET BOWEL SOUNDS VASCULAR: NORMAL PERIPHERAL PULSES, NORMAL CAPILLARY REFILL. MUSCULOSKELETAL: NORMAL RANGE OF MOTION, NONTENDER BACK NEUROLOGIC: ALERT AND ORIENTED ?3, SWITCH FOREMAN IS NORMAL TESTED, NO GROSS MOTOR DEFICIT Course Vital Signs Vital signs: Vital Signs Temperature 36.4 C L 11/07/24 18:04 Pulse Rate 117 H 11/07/24 18:04 Respiratory Rate 17 11/07/24 18:04 Blood Pressure 107/85 11/07/24 18:04 Pulse Oximetry 97 11/07/24 18:04 Temperature 36.4 C L 11/07/24 18:04 Pulse Rate 117 H 11/07/24 18:04 Respiratory Rate 17 11/07/24 18:04 Blood Pressure 107/85 11/07/24 18:04 Pulse Oximetry 97 11/07/24 18:04 Medical Decision Making MDM Narrative Medical decision making narrative: PATIENT CAME WITH HEADACHE, FEVER, NOT FEELING WELL VITAL SIGNS SHOWING HEART RATE OF 117 OTHERWISE WITHIN NORMAL LIMIT PHYSICAL EXAMINATION IS SHOWING ERYTHEMATOUS CHANGES AND WARMTH OF THE LEFT BREAST. DIFFERENTIAL DIAGNOSIS MUST ITIS, VIRAL INFECTION, URINARY TRACT INFECTION BLOOD WORKUP TODAY INCLUDES CBC, CMP SHOWED NO ACUTE ABNORMALITIES URINALYSIS SHOWED NO EVIDENCE OF INFECTION RESPIRATORY PANEL IS NEGATIVE FOR COVID FLU RSV DIAGNOSIS POST MASTITIS DISCHARGED ON DICLOXACILLIN PATIENT REPORT NO ALLERGY TO PENICILLIN THE PT WAS DISCHARGED TO HOME.THE PT,S CONDITION UPON DISCHARGE WAS FAIR,EDUCATION WAS PROVIDED TO THE PT IN REFERENCE TO THE FINAL IMPRESSION,DISCHARGE STUDY RESULTS,TREATMENT,PROGNOSIS AND NEED FOR FOLLOW UP . Vital Signs Vital Signs: Vital Signs Temperature 36.4 C L 11/07/24 18:04 Pulse Rate 117 H 11/07/24 18:04 Respiratory Rate 17 11/07/24 18:04 Blood Pressure 107/85 11/07/24 18:04 Pulse Oximetry 97 11/07/24 18:04 Temperature 36.4 C L 11/07/24 18:04 Pulse Rate 117 H 11/07/24 18:04 Respiratory Rate 17 11/07/24 18:04 Blood Pressure 107/85 11/07/24 18:04 Pulse Oximetry 97 11/07/24 18:04 Lab Data 11/07/24 18:32 11/07/24 18:32 Labs: Lab Results 11/07/24 11/07/24 Range/Units 18:22 18:32 WBC 7.0 (4.8-10.8) K/mm3 RBC 5.16 (4.20-5.40) M/mm3 Hgb 13.4 (12.0-15.0) g/dL Hct 44.9 (35.0-49.0) % MCV 87.0 (78.0-102.0) fL MCH 26.0 L (27.0-31.0) pg MCHC 29.8 L (32-36) g/dL RDW 16.5 H (11.6-14.4) % Plt Count 260 (150-420) K/mm3 MPV 10.6 (9.2-11.8) fl Immature Gran % (Auto) 0.4 H (0.0-0.0) % Neut % (Auto) 78.6 H (50.0-70.0) % Lymph % (Auto) 13.8 L (18.0-42.0) % [place] % (Auto) 7.0 (2.0-11.0) % Eos % (Auto) 0.1 L (1.0-6.0) % Baso % (Auto) 0.1 (0.0-1.0) % Lymph # (Auto) 0.97 L (1.10-4.50) K/mm3 [place] # (Auto) 0.49 (0.10-0.90) K/mm3 Eos # (Auto) 0.01 L (0.02-0.50) K/mm3 Baso # (Auto) 0.01 (0.00-0.10) K/mm3 Abs Immat Gran (auto) 0.03 H (0.00-0.00) K/mm3 Absolute Neuts (auto) 5.50 (1.70-7.20) K/mm3 Absolute Nucleated RBC 0.00 (0.00-0.00) K/mm3 Nucleated RBC % 0.0 (0-0.0) % % Immature Plt Fraction 2.0 (1.0-7.0) % Sodium 134 L (136-145) mmol/L Potassium 3.4 L (3.5-5.1) mmol/L Chloride 98 (98-108) mmol/L Carbon Dioxide 24 (21-32) mmol/L Anion Gap 12 (4-12) mmol/L BUN 8 (7-18) mg/dL Creatinine 1.00 (0.55-1.02) mg/dL Estim Creat Clear Calc 74 ml/min Estimated GFR > 60 (59 - ) Glucose 102 H (70-99) mg/dL Calculated Osmolality 276 L (285-295) mOsm/kg Calcium 8.9 (8.5-10.1) mg/dL Total Bilirubin 0.4 (0.00-1.00) mg/dL AST 24 (15-37) U/L ALT 25 (14-59) U/L Alkaline Phosphatase 140 H (46-116) U/L Total Protein 7.4 (6.4-8.2) g/dL Albumin 3.3 L (3.4-5.0) g/dL Urine Color Yellow (Yellow) Urine Appearance Clear (Clear) Urine pH 6.0 (5.0-8.0) Ur Specific [place] 1.015 (1.010-1.020) Urine Protein Trace H (Negative) Urine Glucose (UA) Negative (Negative) Urine Ketones Negative (Negative) Ur Blood (Man) 2+ H (Negative) Urine Nitrate Negative (Negative) Urine Bilirubin Negative (Negative) Urine Urobilinogen 1.0 (0.2-1.0) mg/dL Leukocyte Esterase Rfl Negative (Negative) DELMY/UL Urine RBC 3-5 H (0-2) /hpf Urine WBC 0-3 (0-3) /hpf Ur Squamous Epith Cells Few (Few) /hpf Urine Bacteria Trace (None) /hpf Influenza A (RT-PCR) Negative (Negative) Influenza B (RT-PCR) Negative (Negative) RSV (RT-PCR) Negative (Negative) SARS-CoV-2 RNA (RT-PCR) Negative (Negative) Discharge Plan Discharge Clinical Impression: Mastitis Patient Disposition: Home Condition: Stable Instructions: Antibiotic Form, Mastitis (ED) Additional Instructions: RETURN IF SYMPTOMS ARE WORSENING , CALL YOUR FAMILY PHYSICIAN FOR APPOINTMENT, TAKE TYLENOL NEEDED FOR ACHES AND PAIN, CONTINUE HOME MEDICATIONS. Patient Language: Polish Prescriptions: New dicloxacillin 500 mg capsule 500 mg PO Q6H Qty: 40 0RF Follow-up/Referrals: Shirley,MD Delmar [Primary Care Provider] -
[2024-11-07 18:26] LABS: Add Urine Microscopic? YES; Appearance Urine Clear (Clear); Bilirubin Urine Negative (Negative); Blood Urine 2+ (Negative); Color Urine Yellow (Yellow); Glucose Urine UA Negative (Negative); Ketones Urine Negative (Negative); Leukocyte Esterase Ur Negative LEU/UL (Negative); Nitrate Urine Negative (Negative); Protein Urine Trace (Negative); Specific Grav Ur 1.015 (1.010-1.020)
--- NOTE | 2024-11-07 18:28 | PC.NURSE ---
Covid culture sent to lab
[2024-11-07 18:33] LABS: Bacteria Urine Trace /hpf; Squamous Epithelial Cell Urine Few /hpf (Few); WBC Urine 0-3 /hpf (0-3)
[2024-11-07 18:36] LABS: Basophils Absolute Auto 0.01 K/mm3 (0.00-0.10); Basophils Percent Auto 0.1 % (0.0-1.0); Eosinophils Absolute Auto 0.01 K/mm3 (0.02-0.50); Eosinophils Percent Auto 0.1 % (1.0-6.0); Hematocrit 44.9 % (35.0-49.0); Hemoglobin 13.4 g/dL (12.0-15.0); Immature Granulocyte Absolute 0.03 K/mm3 (0.00-0.00); Immature Granulocyte Percent A 0.4 % (0.0-0.0); Lymphocytes Absolute Auto 0.97 K/mm3 (1.10-4.50); Lymphocytes Percent Auto 13.8 % (18.0-42.0); Mean Corpuscular HGB Conc 29.8 g/dL (32-36); Mean Platelet Volume 10.6 fl (9.2-11.8); Monocytes Absolute Auto 0.49 K/mm3 (0.10-0.90); Neutrophils Percent Auto 78.6 % (50.0-70.0); Platelet Count Result 260 K/mm3 (150-420); Red Blood Count 5.16 M/mm3 (4.20-5.40); Red Cell Distribution Width 16.5 % (11.6-14.4)
--- NOTE | 2024-11-07 18:55 | PC.NURSE ---
ASSUMED CARE. REPORT RECEIVED FROM DOC HACKETT.
[2024-11-07 18:56] LABS: Alanine Aminotransferase 25 U/L (14-59); Albumin Level 3.3 g/dL (3.4-5.0); Alkaline Phosphatase 140 U/L (46-116); Anion Gap 12 mmol/L (4-12); Aspartate Amino Transferase 24 U/L (15-37); Bilirubin,Total 0.4 mg/dL (0.00-1.00); Blood Urea Nitrogen 8 mg/dL (7-18); Calcium 8.9 mg/dL (8.5-10.1); Carbon Dioxide 24 mmol/L (21-32); Chloride 98 mmol/L (98-108); Estimated CRCL calculation 74 ml/min; Estimated Glomerular Filt Rate > 60; Glucose 102 mg/dL (70-99); Osmolality Calculated 276 mOsm/kg (285-295); Potassium 3.4 mmol/L (3.5-5.1); Sodium 134 mmol/L (136-145); Total Protein 7.4 g/dL (6.4-8.2)
[2024-11-07 19:05] LABS: Influenza A QL RT-PCR Negative (Negative); Influenza B QL RT-PCR Negative (Negative); RSV RNA, RT-PCR Negative (Negative); SARS-CoV-2 RNA PCR Negative (Negative)
--- NOTE | 2024-11-07 20:28 | PC.NURSE ---
PATIENT REPORTS THAT SHE IS NOT ALLERGIC TO AMOXICILLIN. ER PROVIDER WAS NOTIFIED. CHANGED PHARMACY TO [facility] IN [place]
[2024-11-07] MEDS: CEPHALEXIN 500 MG CAPSULE PO (20:31)
[2024-11-07 20:45] VITALS: BP 118/82; PULSE 92; RESP 18; O2SAT 100
== END 2024-11-07 20:45 | disposition home or self-care (01) ==
PROVIDERS: Emergency Provider Emergency Medicine; PCP Family Medicine
DX: N61.0 Mastitis without abscess (principal); Z85.41 Personal history of malignant neoplasm of cervix uteri; Z20.822 Contact with and (suspected) exposure to COVID-19
CPT/HCPCS: 36415; 71046; 80053; 81001; 85025; 85055; 87637; 99283; A9270

== ENCOUNTER 2025-05-11 23:14 | Emergency (ER) | payer BC, MEDICAID, SELFPAY ==
--- NOTE | ~2025-05-11 | CT_ITS ---
EXAMINATION: CT abdomen pelvis w con DATE: 05/12/2025 00:36 INDICATION: Abdominal pain. TECHNIQUE: Computed tomography (CT) of the abdomen and pelvis was performed with 100 mL Omnipaque 350 intravenous contrast. Automated exposure control and iterative reconstruction technique were employed. The dose-length product was 411.33 mGy-cm. COMPARISON: CT abdomen and pelvis 04/07/2023 FINDINGS: The visualized portions of the lung bases are clear without pneumonia or pleural effusion. The heart size is normal. No pericardial effusion. The liver and spleen are normal. The gallbladder is contracted. The pancreas, adrenal glands, and kidneys are normal. There are no dilated loops of bowel. The appendix is not visualized. There are no pathologically enlarged lymph nodes. There is no free intraperitoneal fluid. There is mild thoracic and lumbar spondylosis. IMPRESSION: 1. No etiology for the patient's symptoms. Reviewed, dictated and finalized at location E. [facility]PILL[facility]IVER
[2025-05-11 23:21] VITALS: BP 115/90; PULSE 98; RESP 18; TEMP 36.5; O2SAT 97
--- OUTSIDE RECORDS SUMMARY | 2025-05-11 23:27 | XMS_ITS | Clinical Summary ---
Author Organization [facility] Address [address] [place] [id number] Care Team Providers Care Wire Frame Maker Name Role Phone Delmar Watson MD Primary Care Provider Allergies Active Allergy Reactions Criticality Noted Date Comments Hydrocodone-Acetaminophen Nausea Only 9 tired Medications No known medications Active Problems Problem Noted Date Diagnosed Date 10/24/2024 Social History Tobacco Use Types Packs/Day Years [...] Sex Assigned at Female 2024 6:18 AM ADMISSION DISCHARGE RN Legal Sex Female 10:12 PM ADMISSION DISCHARGE RN Gender Identity Female 10/24/2024 1:57 PM CDT [...] 1:54 PM CDT Height 165.1 cm (5' 5) 10/24/2024 1:54 PM CDT Body Mass Index 32.12 10/24/2024 1:54 PM CDT Plan of Treatment Health Maintenance Due Date Last Done Comments Cervical Cancer Screening Pap Smear (Age 30 to 64) Every 3 Years 1992 Annual Physical 1995 Hepatitis C 2010 Hepatitis B Vaccines (1 of 3 - 19+ 3-dose series) 2011 HPV Vaccines (1 - 3-dose SCDM series) 2019 Cervical Cancer Screening Pap with HPV Testing (Age 30 to 64) Every 5 Years 2022 Cervical Cancer Screening with HPV 2022 COVID-19 Vaccine ( season) 2025 Influenza Adult (#1) 2025 04/23/2022 DTaP, Tdap and Td Vaccines (3 - Td or Tdap) 03/17/2032 03/17/2022, 08/17/1996, 08/13/1993, Additional history exists Hepatitis A Vaccines Aged Out No long er eligible based on patient's age to complete [...] on patient's age to complete this topic Insurance MEDICAID BLUE [employer]OSS BLUE [employer] Advance Directives * Full Code (Latest Code Status on File) Date Activated Date Inactivated Comments 10/24/2024 4:51 PM 10/26/2024 4:18 PM Care Teams Wire Frame Maker Relationship Specialty Start Date End Date Delmar Watson MD [address] [place] [phone] PCP - General FAMILY PRACTICE 01/25/19
--- OUTSIDE RECORDS SUMMARY | 2025-05-11 23:28 | XMS_ITS | Data Portability ---
Author Organization [facility], [address] [facility] ([place]) Address [address] [address] Care Team Providers Care Interventional Physician Name Role Phone CLAUDIA PAL Primary Care Provider WES LEYVA Bullet Assembly Press Operator LAILA MCCLAIN Thiokol Operator MONALISA RAMIREZ Bullet Assembly Press Operator Assessment Encounter Date Assessment Date Assessment LastModified by Organization Details LastModified Time 10/10/2024 10/10/2024 1.LAURI: Patient complains of intermittent [...] week for incision check from 10/[address] [facility] or sooner if needed. [email or web address] Not available 10/22/2024 12:02:58 11/01/2024 11/01/2024 1. incision check: - s/p repeat section on 10/24/2024 @ 39 weeks 2 days. - Delivery note, discharge summary and placental pathology discussed with patient. - Patient had a baby girl Tad, weight 7 pounds 13 ounces, Apgars 8/9. [...] for full visit or sooner if needed. whit Not available 11/01/2024 17:48:51 12/08/2024 12/08/2024 1. Full postpart visit: - s/p repeat section on 10/24/2024 @ 39 weeks 2 days. - Delivery note, discharge summary and placental pathology discussed with patient. - Patient had a baby girl Tad, weight 7 pounds 13 ounces, Apgars 8/9. [...] normal 3-hour oral glucose tolerance test. - Patient cleared to return to all normal activities. 2. Contraception management: -Patient diet desires starting control today. Discussed with patient risks benefits of contraception methods including combined oral contraception pills, Xulane, NuvaRing, Depo-Provera, Nexplanon, condom use, abstinence, and Mirena IUD. The risks benefits of each discussed with the patient and all her questions were answered. -Patient desires to proceed with Depo-Provera for contraception. -The risk, benefits, and alternatives of Depo were discussed with patient. Risks including but not limited to temporary osteoporosis and increased risk of benign meningiomas discussed with patient. Side effects and dosing schedule discussed with patient. All her questions were answered to her satisfaction. -Urine test negative today. -Patient has no contraindications to Depo-Provera use. -Depo-Provera 150 mg IM x1 given today. -Patient advised to take calcium 600 mg by mouth daily and vitamin D 800 international units orally daily for supplementation while on Depo. -Patient counseled on condom use to decrease risk of STIs. -Return to clinic in 3 months for next Depo injection. 3. Cervical polyp: - On sterile speculum examination the cervix is flush with cervical scarring and stenotic cervical os there is a small flush cervical polyp noted at the 6 o'clock position is approximately 2 mm in size. There were no other cervical abnormalities noted. - Discussed findings with patient. These findings have been stable since and she states was noted previously by her prior MANAGER PROCUREMENT. - Options for management discussed with patient including conservative management with close observation versus removal. The risks and benefits of each option were discussed with patient in detail and all questions were answered to her satisfaction. Patient desires to proceed with conservative management with close observation. 4. Preventative health care: - Pap smear: 02/10/2024 negative cytology, negative high-risk HPV. Pap smear due 02/2029. - HPV vaccine: none. Discussed with patient the benefits of HPV vaccination series to decrease risk of cervical cancer and other HPV related cancers. The patient declines. - Mammogram: None. Mammogram screening at 40 years of age unless otherwise indicated. - Breast self-awareness discussed with patient. She was advised to contact the office if she has any breast concerns. The patient voiced understanding. - Colonoscopy: none. Colon cancer screening with colonoscopy at 45 years of age unless otherwise indicated. - DEXA scan: none. DEXA osteoporosis screening at 65 years of age unless otherwise indicated. - Contraception: New start Depo, see assessment #2 for details. - Patient declines STD testing today. - Hepatitis C screenin03/11/2024 nonreactive. - Hereditary cancer risk assessment: completed today and noted to be negative. - Annual BUSINESS SUPPORT well women visit in one year or sooner if needed. whit Not available 12/10/2024 14:58:32 Plan of Treatment Reminders Order Date Submit Date Provider Last Modified By Organization Details Last Modified Time Details Appointments Nurse Visit 15.EST 2024 09:30A [facility] Not available Not available Not available Jamie hed Patient 15.EST 2025 11:30A M Dr. Laila Mcclain Not available Not available Not available Annual [facility] Visit 20.EST 2025 08:30A M Dr. Monalisa Ramirez Not available Not available Not available Lab urinalys is, dipstick 2024 025 [email or web address] [address] [place] [address], [address], 10/20/2024 13:45:25 urinalys is, dipstick 2024 025 [email or web address] [facility] [address] [place] [address], [address], 10/10/2024 14:25:34 Referral None recorded . Procedures None recorded . Surgeries None recorded . Imaging None recorded . Medication Orders medroxyp rogester one 150 mg/mL intramus cular suspensi on 2024 025 [email or web address] [facility], [address], [address], 02/28/2025 10:25:01 medroxyp rogester one 150 mg/mL intramus cular suspensi on 2024 025 [email or web address], [address] [facility] [address], [place], [address], 12/08/2024 13:23:26 Patient TargetsNo targets recorded. Patient InstructionsNo instructions recorded. Reason for Referral None Reported. Results Created Date Observation Date Name Description Value Unit Range Abnormal Flag Note LastModifiedBy Organization Detail LastModifiedTime 09/14/1909/1309/13/2024 urina lysis , dipst ick Protein Negati ve Not Available [facility] [address] [place] [address], [place], [address], 09/09/2024 10:55:22 09/14/19 25 09/13/2024 urina lysis , dipst ick Glucose Negati ve Not Available [address] [facility] [facility] [address] [place] [address], [place], [address], 09/09/2024 10:55:22 09/21/19 25 09/20/2024 urina lysis , dipst ick Protein Negati ve Not Available [facility] [address] [place] [address], [place], [address], 09/15/2024 12:38:26 09/21/19 25 09/20/2024 urina lysis , dipst ick Glucose Negati ve Not Available [facility] [address] [place] [address], [place], [address], 09/15/2024 12:38:26 09/28/19 25 09/27/2024 urina lysis , dipst ick Protein Negati ve Not Available [facility] [address] [place] [address], [place], [address], 09/23/2024 16:15:53 09/28/19 25 09/27/2024 urina lysis , dipst ick Glucose Negati ve Not Available [address] [facility] [address] [place] [address], [place], [address], 09/23/2024 16:15:53 10/05/19 25 10/05/2024 strep tococ [...] ant clini ashley bernardo xt. Not Available N[facility] Only - [facility] [address] [place] [address], [place], [address], 10/05/2024 15:29:16 10/05/19 25 10/04/2024 urina lysis , dipst ick Protein Negati ve Not Available [facility] [address] [place] [address], [place], [address], 09/30/2024 15:29:37 10/05/19 25 10/04/2024 urina lysis , dipst ick Glucose Negati ve Not Available [address] [facility] [address] [place] [address], [place], [address], 09/30/2024 15:29:37 10/11/19 25 10/10/2024 urina lysis , dipst ick Protein Negati ve Not Available [address] [facility] [address] [place] [address], [place], [address], 10/10/2024 13:13:10 10/11/19 25 10/10/2024 urina lysis , dipst ick Glucose Negati ve Not Available [address] [facility] [address] [place] [address], [place], [address], 10/10/2024 13:13:10 10/21/19 25 10/20/2024 urina lysis , dipst ick Protein Negati ve Not Available [address] [facility] [address] [place] [address], [place], [address], 10/18/2024 16:11:18 10/21/19 25 10/20/2024 urina lysis , dipst ick Glucose Negati ve Not Available [address] [facility]) [address] [facility], [place], [address], 10/18/2024 16:11:18 10/11/19 25 10/04/2024 US, obste tric, follo w-up [facility] [address] [place] [address] Teleph one Name: LORI MILLIGAN 1871 Exam Date: 2024 Age: 34 Physic jef: JORDY MEMANUEL MD, RICH MENA : 1990 Examin ation: [...] which is the 40.2 percen tile by [facility] k biomet ry. See indivi dual measur ements above. 3. Normal amniot ic fluid volume Electr onical ly signed in Beck cribe by: Rich Zaman on:10/10 7:20 AM cc: Page PAGE 1 of NUMPAG ES 1 INTERFACE Sc Only - Sc Radiology [address] [place] [address], [address], 10/10/2024 08:23:52 Result Notes None recorded. Problems Name Problem SNOMED Code Status Onset Date Resolution Date Notes Provider Name and Address Organization Details Recorded Time Anxiety 15343792 Completed - no meds MONALISA RAMIREZ MD [address] [place] [address], [address] , [facility] 4 11:31:43 Dipping 055204676 Completed - Tobacco cessatio n advised MONALISA RAMIREZ MD [address] [place] [address], [address] , [facility] 4 11:32:04 History of loop electros urgical excision procedur e [id number] 102 Completed - CXL screenig Q2w at 16-24w: CXL 3.24 on 05/17, CXL 3.62cm on 05/27, CXL 3.79cm on 06/10, CXL 25.5 cm on 06/22, referred to MFM - severe cervical scaring on physical exam - Pap 02/10/2024 neg cytology , neg HRHPV - MFM apt 06/30 CXL 25.5-24, no cerclage , started on vaginal progeste cheryl RAMIREZ MD [address] [place] [address], [address] , [facility] 5 12:12:17 Normal body mass index 22822320 Completed PPBMI 27 MONALISA RAMIREZ MD [address] [place] [address], [address] , [facility] 4 11:34:13 Placenta previa with hemorrha ge 226319706 Completed noted on u/s 04/26 Marginal previa 05/17 at 1.6-2cm from OS RESOLVED 05/27 MONALISA RAMIREZ MD [address] [place] [address], [address] , [facility] 4 13:02:33 Disorder of placenta 734317759 Completed Anterior placenta MONALISA RAMIREZ MD [address] [place] [address], [address] , [facility] 4 13:03:06 Stenosis of cervix 02166506 Active 2023 Wes Leyva MD [address] [place] [address], [address] , [facility] 4 16:23:06 Normal pregnanc y 06993250 [facility] 10:48[facility]12 Pregnanc y test positive 418764536 Active 2023 Levi Johnson [facility] 4 15:20:14 Antepart um hemorrha ge 52850600 Active 2023 Levi Johnson [facility] 4 16:39:18 Pregnanc y 50084711 Completed 202312/10/2024 MONALISA RAMIREZ MD [address] [place] [address], [address] , [facility] 5 14:49:47 Gestatio n period, 6 weeks 62668636 [facility] 10:48:07 Nausea and vomiting 33069189 [facility] 4 11:04:48 High risk pregnanc y 64474839 Active 2023 MONALISA RAMIREZ MD [address] [place] [address], [address] , [facility] 5 12:03:43 Gestatio n period, 36 weeks 95188528 Active 2023 Swathi Gonzalez null, [facility] 5 15:29:26 Gestatio n period, 9 weeks 333964 Active 2023 Swathi Gonzalez null, [facility] 4 09:37:16 RhD negative 595987472 Completed 2023 - Rhogam given 17 - Rhogam @ 28 weeks, given 2/4 - RH studies PP MONALISA RAMIREZ MD [address] [place] [address], [address] , [facility] 5 13:46:31 RhD negative 705658872 Active 2023 - Rhogam given 17 - Rhogam @ 28 weeks, given 2/4 - RH studies PP MONALISA RAMIREZ MD [address] [place] [address], [address] , [facility] 5 13:46:31 Gestatio n period, 13 weeks 99221768 Active 2023 Shira Juarez null, [facility] 4 09:35:27 Abnormal uterine bleeding 36618952943 100 [facility] 2023 [facility] 10:36:23 Bleeding from female genital tract during pregnanc y 67488224786 633681 Active 2023 Swathi Carlos null, [facility] 4 10:37:43 Placenta previa 58187704 Active 2023 MONALISA RAMIREZ MD [address] [place] [address], [address] , [facility] 4 18:51:37 Placenta previa marginal is 85440465 Active 2023 MONALISA RAMIREZ MD [address] [place], [address] , [facility] 4 13:15:07 Gestatio n period, 17 weeks 17149163 Active 2023 Swathi Gonzalez null, [facility] 4 15:42:25 Tachycar mik 3271367 Active 2023 Swathi Gonzalez null, [facility] 4 15:30:28 Previous operatio n to cervix affectin g pregnanc y 30656724 Active 2023 MONALISA RAMIREZ MD [address] [place], [address] , [facility] 4 13:00:38 Gestatio n period, 19 weeks 56950359 Active 2023 Swathi Gonzalez null, [facility] 4 15:49:58 Gestatio n period, 21 weeks 35702499 Active 2023 Swathi Gonzalez null, [facility] 4 17:16:27 Gestatio n period, 22 weeks 70981299 Active 2023 Swathi Gonzalez null, [facility] 4 14:09:42 Past pregnanc y history of section 910148853 Completed 2023 - delivery 18 months ago in [facility] pi confirme d with ROMR to be LTCS at 39w3d 2/2 arrest of dilation with cervical stenosis - ROMR reviewed - RLTCS schedule d [facility] for 5 MONALSIA RAMIREZ MD [address] [place], [address] , [facility] 5 12:11:34 Past pregnanc y history of section 770007789 Active 2023 - delivery 18 months ago in [facility] pi confirme d with ROMR to be LTCS at 39w3d 2/2 arrest of dilation with cervical stenosis - ROMR reviewed - [facility] schedule d [facility] for 5 MONALISA RAMIREZ MD [address] [place] [address], [address] , [facility] 5 12:11:34 Short cervical length in pregnanc y 421678792 Active 2024 MONALISA RAMIREZ MD [address] [place] [address], [address] , [facility] 5 12:10:04 Heartbur n 48139502 Active 2024 Levi Johnson null, [facility] 5 12:07:43 Gestatio n period, 28 weeks 95444284 Active 2024 [facility] 5 10:33:50 Gestatio n period, 27 weeks 55138291 Active 2024 [facility] 5 09:15:13 Palpitat ions 58483163 Active 2024 [facility] 5 09:30:05 Blood glucose outside referenc e range 955419766 Active 2024 [facility] 5 16:37:16 Hemorrho ids in pregnanc y 093908901 Active 2024 MONALISA RAMIREZ MD [address] [place] [address], [address] , [facility] 5 11:49:49 Vasovaga l syncope 583994996 Completed 2024 - EKG 08/04 sinus ryhtm with non specifi t wave abnormal ities - Cardiolo gy consult Dr. Mcclain 08/22 - Echo 08/31 EF 62% with Trace MONALISA RAMIERZ MD [address] [place] [address], [address] , [facility] 5 19:22:45 Anemia in mother complica ting pregnanc y, childbir th AND/OR puerperi 88244751 Active 2024 [facility] 5 17:09:24 Third trimeste r pregnanc y 51853145 Active 2024 [facility] 5 13:23:06 Requires diphther ia, tetanus and pertussi s vaccinat ion 049484705 Completed 2024 given 08/09 MONALISA RAMIREZ MD [address] [place] [address], [address] , [facility] 5 13:46:06 Anemia 750755514 Active 2024 MONALISA RAMIREZ MD [address] [place] [address], [address] , [facility] 5 13:50:49 heart disorder 439648414 Active 2024 Swathi Gonzalez [facility] 5 15:14:40 Abnormal ity of organs AND/OR soft tissues of pelvis affectin g pregnanc y 2575560 Active 2024 Levi Johnson [facility] 5 15:19:37 Pruritus of pregnanc y 442326635 Active 2024 Levi Johnson [facility] 5 15:24:32 Chronic anemia 553373526 Completed 2024 - Hgb 10.3 on 08/22 - Iron and colace MONALISA RAMIREZ MD [address] [place], [address] , [facility] 5 14:49:26 Gestatio n period, 32 weeks 3960629 Active 2024 [facility] 5 15:18:01 Gestatio n period, 33 weeks 42331294 Active 2024 [facility] 5 10:55:23 Gestatio n period, 34 weeks 27774976 Active 2024 Swathi Gonzalez [facility] 5 12:38:10 Pruritic disorder of skin Completed 2024 - Bile acids 08/25 of 4.1 MONALISA RAMIREZ MD [address] [place] [address], [address] , [facility] 5 19:23:05 Gestatio n period, 35 weeks 18128145 Active 2024 Swathi Carlos [facility] 5 16:15:41 Nausea and vomiting in pregnanc y Completed 2024 Reglan 5 mg pO Q6H PRN Levi Johnson [facility] 5 10:20:31 Nausea and vomiting in pregnanc y Active 2024 Levi Johnson [facility] 5 10:20:31 Polyp of vagina 64072235 Completed 2024 - 2-3 mm vaginal polyp at edge of cervix and vagina at 6 oclock position MONALISA RAMIREZ MD [address] [place] [address], [address] , [facility] 5 12:14:01 Gestatio n period, 37 weeks 83874142 Active 2024 Levi Johnson [facility] 5 13:12:39 Gestatio n period, 38 weeks 43068131 Active 2024 Swathi Gonzalez [facility] 5 16:10:56 Polyp of cervix 15282939 Active 2024 MONALISA RAMIREZ MD [address] [place] [address], [address] , [facility] 5 14:59:07 Problem Notes None recorded. Procedures Surgical History Date Name Laterality Status Provider Name and Address Organization Details Recorded Time 09/03/2022 Date of Last Pap Smear completed Jenna [facility] 02/10/2024 15:50:35 Imaging Results None recorded. Procedure Notes None recorded. Medical Equipment None [...] Not Available Not Available Not Avai lable medroxyprog esterone 150 mg/mL intramuscul ar suspension Inject 1 mL every 3 months by intramusc ular route. 2024 active Not Available Not Available [...] Avai lable Vitals Date Recorded Body weight Body mass index (BMI) Body height Heart rate Oxygen saturation Oxygen saturation in Arterial blood by Pulse oximetry Systolic And Diastolic Provider Name and Address Organization Details Last Updated DateTime 5 89402.1 46086 g 32 kg/m2 165.1 cm 110 /min 98 % 98 % 124/76 mm[Hg] [facility] 5 13:12:17 Date Recorded Body weight Body mass index (BMI) Body height Respiratory rate Systolic And Diastolic Provider Name and Address Organization Details Last Updated DateTime 10/20/2024 82344.68 6647 g 32.1 kg/m2 165.1 cm 98 /min 128/86 mm[Hg] Swathi Gonzalez [facility] 5 13:02:18 Date Recorded Body height Body mass index (BMI) Body weight Heart rate Oxygen saturation Oxygen saturation in Arterial blood by Pulse oximetry Systolic And Diastolic Provider Name and Address Organization Details Last Updated DateTime 5 165.1 cm 29.7 kg/m2 37406.1 6 g 88 /min 98 % 98 % 112/76 mm[Hg] [facility] 5 12:18:07 Date Recorded Body weight Body mass index (BMI) Body height Heart rate Oxygen saturation Oxygen saturation in Arterial blood by Pulse oximetry Systolic And Diastolic Provider Name and Address Organization Details Last Updated DateTime 5 71203.9 2579 g 27.8 kg/m2 165.1 cm 90 /min 98 % 98 % 122/78 mm[Hg] [facility] 5 11:49:30 Social History Question Answer Notes LastModified by [employer] Details LastModified Time What Is Your Level Of Caffeine Consumption? Moderate Information not available 02/10/2024 How Many Children Do You Have? 5 Information not available 02/10/2024 What Is Your Relationship Status? Single [email or web address] Information not available 02/10/2024 Are You Sexually Active? Yes [email or web address] Information not available 02/10/2024 Sex: Unknown Functional Status Question Answer Note LastModified by [employer] Details LastModified Time Do you use any illicit or recreational drugs? No [email or web address] Information not available 02/10/2024 What is your level of alcohol consumption? None [email or web address] Information not available 02/10/2024 What is your exercise level? Occasional [email or web address] Information not available 02/10/2024 Mental Status None [...] Therapy N Obstetrics History GPAL:G 7 P 6 0 1 6 Type Value Full Term 6 Spontaneous 1 Living 6 Total 7 Immunizations Vaccine Type Date Status Note Provider Nam clayton and Address Organization Details Recorded Time Tdap 08/09/2024 completed MONALISA RAMIREZ MD [address] [place] [address], [address], [facility] 08/09/2024 17:45:46 Past Encounters Encounter ID Performer Location Encounter Start Date Encounter Closed Date Diagnosis/Indication Diagnosis SNOMED-CT Code Diagnosis ICD10 Code Diagnosis IMO Codes Diagnosis Note [id number] Wes Leyva MD [facility] [address] [place] [address] 2 [place] [address] 02/10/2024 15:11:47 02/10/2024 16:37:42 Gynecologic examination 60404401 Z01.419 Exam was normal today. Pap smear was done today. If this does come back insufficie nt due to cervical stenosis then I would have her come back and repeat her Pap smear after dilating her cervix. Additional diagnosis detail: Encounter for gynecologi ashley examinatio n Uses oral contraception 7357449 Z30.41 She will continue her Loestrin control for contracept ion.Additi onal diagnosis detail: Oral contracept herber use Stenosis of cervix 70594 006 N88.2 Additional diagnosis detail: Cervical stenosis (uterine cervix) [id number] MONALISA RAMIREZ MD [facility] [address] [facility] 2 [place] [address] 03/11/2024 09:36:05 03/11/2024 13:46:53 screening 606362003 Z36.89 RhD negative 437200981 Z 01.83 Multigravida 321326529 Z 34.81 Additional diagnosis detail: Multigravi da in first trimester High risk 4720 0007 O09.91 Additional diagnosis detail: High-risk in first trimester [id number] MONALISA RAMIREZ MD [facility] [place] [address] [place] [address] 04/01/2024 09:09:26 04/01/2024 10:53:12 Gestation period, 9 weeks 353192 Z3A.09 Genetic test 438118005 Z 13.79 Additional diagnosis detail: Genetic screening High risk 4720 6 O09.91 Additional diagnosis detail: High-risk in first trimester [id number] MONALISA RAMIREZ MD [address] [facility] [address] [address] 04/21/2024 12:12:37 04/21/2024 13:22:05 RhD negative 193510377 O26.899 Z67.91 776618 [id number] MONALISA RAMIREZ MD [facility] [place] [address] [place] [address] 2 [place] [address] 04/26/2024 09:21:19 04/26/2024 11:08:22 Second trimester 99029303 Z34.92 307667 Bleeding f rom female genital tract during 3257335392 0547202 O46.90 O46.92 8164398 High risk 476 O09.91 [id number] Additional diagnosis detail: High-risk in first trimester Placenta previa 00892393 O44.00 712917 [id number] MONALISA RAMIREZ MD [facility] [address] [address] 05/17/2024 09:56:22 05/17/2024 13:21:52 Normal 09826731 Z34.92 Z3A.16 [id number] Additional diagnosis detail: Encounter for supervisio n of other normal , first trimesterA dditional diagnosis detail: Cervical os stenosis screening 2437 53168 Z36.86 [id number] High risk 4720 0007 O09.92 [id number] Additional diagnosis detail: High-risk in first trimester Past pregn saloni history of section 397487224 Z98.065 1604678 Placenta p revia marginalis 61622768 O44.20 7579 [id number] MONALISA RAMIREZ MD [facility] [place] [address] [facility] [address] [place] [address] [facility] [address] 05/27/2024 14:01:55 05/27/2024 16:46:41 Gestation period, 17 weeks 88763444 Z3A.17 Z34.92 [id number] [facility] 7209449 R00. 0 [address] screening 2437 10462 Z36.89 9340613654 High risk 4720 0007 O09.92 [id number] Additional diagnosis detail: High-risk in first trimester Previous o peration to cervix affecting 84947912 O34.42 Z98.890 52450558 [id number] MONALISA RAMIREZ MD [facility] 900 [address] [facility] [address] [place] 2 [place] [address] 06/10/2024 14:47:37 06/10/2024 17:28:45 Gestation period, 19 weeks 95567316 Z3A.19 Z34.92 7683050 History of loop electrosurgical excision procedure 1739267491 9102 Z98.890 35299306 High risk 4720 0007 O09.93 59796309 Additional diagnosis detail: High-risk in first trimester [id number] MONALISA RAMIREZ MD [facility] ([place]) [address] [facility] [address] [place] [address] [place] [address] 06/22/2024 09:29:18 06/22/2024 13:50:09 Gestation period, 21 weeks 33269285 Z3A.21 Z34.92 7627590 Postproced ural state finding 422739215 Z98.734 8912703 High risk 4720 0007 O09.92 85216107 Additional diagnosis detail: High-risk in first trimester History of loop electrosurgical excision procedure 4403503818 9102 Z98.890 89113212 [id number] MONALISA RAMIREZ MD [facility] ([place]) [address] [place] [address] 2 [facility] [place] [address] 07/08/2024 08:42:00 07/08/2024 11:05:27 High risk 93255322 O09.92 Z3A.23 02833472 Additional diagnosis detail: High-risk in first trimester Short cerv ical length in 083652411 O26.879 77225393 Previous o peration to cervix affecting 30671205 O34.42 Z98.890 41998434 [id number] MONALISA RAMIREZ MD [facility] [place] [address] [facility] 2 [place] [address] 08/05/2024 09:03:48 08/05/2024 10:16:20 Gestation period, 27 weeks 38603116 Z3A.27 Z34.92 0660586 Palpitations 89143506 R0 0.2 157722 High risk 4720 0007 O09.92 51853372 Additional diagnosis detail: High-risk in first trimester Hemorrhoid s in 225346076 O22.40 03048992 [id number] MONALISA RAMIREZ MD [facility] [place] [address] [place] [address] 2 [place] [address] 08/09/2024 12:51:21 08/09/2024 14:17:01 Third trimester 99420679 Z34.93 Z3A.28 549016 Requires d iphtheria, tetanus and pertussis vaccination 404285274 Z23 129421 Administra tion of human anti-D immunoglobulin needed 8473875346 Z29.13 494797 screening 2437 69440 Z36.89 5194458505 High risk 4720 0007 O09.93 42225428 Additional diagnosis detail: High-risk in first trimester RhD negative 864447243 O 26.899 Z67.91 810778 Anemia 903154026 O99.01 9 756601 [id number] Laila Mcclain DO [facility] 4th Cardiolog y ([place]) [address] [place] [address] 08/22/2024 12:02:00 08/23/2024 04:44:00 Palpitations 89852403 R00.2 606827 94986585 Z33.1 Tachycardia 3647988 R00. 0 60093 Third trim obie 72971408 Z34.93 023338 [id number] MONALISA RAMIREZ MD [facility] [place] [address] [place] [address] 08/25/2024 14:20:39 08/25/2024 17:30:55 Abnormality of organs AND/OR soft tissues of pelvis affecting 2677147 O34.43 873990 Pruritus of 23 1368601 O99.713 L29.9 69559881 High risk 4720 0007 O09.93 74117744 Additional diagnosis detail: High-risk in first trimester [id number] MONALISA RAMIREZ MD [facility] [place] [address] [place] [address] 09/13/2024 09:42:44 09/13/2024 11:14:24 Gestation period, 33 weeks 82803223 Z3A.33 Z34.93 8556504 High risk 4720 0007 O09.93 42535864 Additional diagnosis detail: High-risk in first trimester [id number] MONALISA RAMIREZ MD [facility] [place] [address] [place] [address] 09/20/2024 12:34:22 09/20/2024 14:52:34 Gestation period, 34 weeks 16598174 Z3A.34 Z34.93 7252647 High risk 4720 0007 O09.93 80163063 Additional diagnosis detail: High-risk in first trimester [id number] MONALISA RAMIREZ MD [facility] [place] [address] [place] [address] 09/27/2024 12:20:00 09/27/2024 14:00:43 Gestation period, 35 weeks 52977882 Z3A.35 Z34.93 9198137 High risk 4720 0007 O09.93 68829476 Additional diagnosis detail: High-risk in first trimester [id number] MONALISA RAMIREZ MD [facility] [place] [address] [place] [address] 10/04/2024 12:09:19 10/04/2024 14:26:33 Gestation period, 36 weeks 07145241 Z3A.36 Z34.93 9242076 Additional diagnosis detail: High-risk in first trimester High risk 4720 0007 O09.93 20413442 Additional diagnosis detail: High-risk in first trimester [id number] MONALISA RAMIREZ MD [facility] [place] [address] [place] [address] 2 [place] [address] 10/10/2024 12:32:41 10/10/2024 14:39:58 Gestation period, 37 weeks 37410030 Z3A.37 Z34.83 8799319 High risk 4720 0007 O09.93 31868925 Additional diagnosis detail: High-risk in first trimester [id number] MONALISA RAMIREZ MD [facility] [place] [address] [place] [address] 10/20/2024 12:46:24 10/20/2024 13:55:48 Gestation period, 38 weeks 22909022 Z3A.38 Z34.93 0513522 High risk 4720 0007 O09.93 53164756 Additional diagnosis detail: High-risk in first trimester [id number] MONALISA RAMIREZ MD [facility] [place] [address] 2 [place] [address] 11/01/2024 12:07:45 11/01/2024 12:59:38 state 00729537 Z39.2 879623 Past pregn saloni history of section 354392951 Z98.891 297428 [id number] MONALISA RAMIREZ MD 900 [facility] [place]) [address] [place] [address] 2 [place] [address] 12/08/2024 11:33:15 12/08/2024 14:10:46 Surveillance of depot contraception 888293737 Z30.42 279199 care status 24 2559048 Z39.2 87486791 Past pregn saloni history of section 093807327 Z98.891 752318 Polyp of cervix 28334016 N84.1 38774 Contraception status 243 856096 Z30.900 3801873 [id number] MONALISA RAMIREZ MD 900 2nd [facility] ([place]) [address] [place] [address] 02/27/2025 09:46:17 02/27/2025 11:06:12 Contraception care management 140443979 Z30.8 4305265 Health Concerns Section Related Observation LastModified by Organization Detai ls LastModified Time None Recorded Concern Status LastModified by Organization Details LastModified Time None Recorded Advance Directives Directive None Recorded Payers Insurance Date Sequence Insurance Name Policy Number Policy Hanley Covered Member ID Hanley Member ID Guarantor Name 02/27/2025 1 [facility] (PPO) [id number] Eloisa Givensythe [id number] Eloisa Givensythe 02/27/2025 2 [facility] (MEDICAID HMO) [id number] 0003 Eloisa Givensythe [id number] Eloisa Givensythe 02/27/2025 2 [place] [facility] Eloisa Givensythe [id number] Eloisa Givensythe 03/04/2025 1 [facility] (O) [id number] Doug Menchaca [id number] Eloisa Givensythe 02/27/2025 [facility] (MEDICAID HMO) [id number] 0003 Eloisa Givensythe [id number] Eloisa Givensythe Notes Date Note Type Note Provider Name and Address Organization Details Recorded Time 10/10/2024 text/html ROS as noted in the [facility] Patient complains of intermittent contractions. Patient has no other [...] in movement. MONALISA RAMIREZ MD [address] [place] [address], [phone], [facility] 10/10/2024 18:07:01 10/20/2024 text/html ROS as noted in the HPI Patient complains of intermittent contractions. Patient has no other [...] in movement. MONALISA RAMIREZ MD [address] [place] [address], [phone], [facility] 10/22/2024 12:04:13 11/01/2024 text/html ROS as noted in the HPI a dyan 34-year-old G 7 P 6016 status post repeat low-transverse on 10/24/2024 at 39 weeks 2 days secondary to history of prior C-sectionpresents today for incision check visit. Patient states that she is meeting all and postoperative milestones. Patient is doing well postoperatively. She denies swelling pain or redness in a calf or calves. She states that her incisions are healing well. She denies erythema, drainage, pain and dehiscence of her incisions. She is ambulating, tolerating regular diet, voiding spontaneously, and passing gas. She denies heavy vaginal bleeding. She is breast feeding, and has no breast complaints. She [...] sleeping well. MONALISA RAMIREZ MD [address] [place] [address], [phone], [facility] 12/10/2024 14:54:05 12/08/2024 text/html ROS as noted in the HPI Ms. Menchaca is a dyan 34-year-old G 7 P 6016 status post repeat low-transverse on 10/24/2024 at 39 weeks 2 days secondary to history of prior presents today for full visit. Patient states that she is meeting all and postoperative milestones. Patient is doing well postoperatively. She denies swelling pain or redness in a calf or calves. She states that her incisions are healing well. She denies erythema, drainage, pain and dehiscence of her incisions. She is ambulating, tolerating regular diet, voiding spontaneously, and passing gas. She denies heavy vaginal bleeding. She is breast feeding, and has no breast complaints. She [...] eating and sleeping well. MONALISA RAMIREZ MD [facility], [address], [facility] 01/01/2025 19:32:43 OBGyn Episode Ob Episode Information Episode Created Date Number of Fetuses Patient Bloodtype Patient rh Status Prepregnancy Weight lbs Domestic Partner Domestic Partner Phone Father Name [employer] Production Worker Status 03/11/20 24 1 O Negative Doug CLOSED Fetus Data First Name Last Name Admitted to NICU Weight (g) Sex Living Outcome Pediatric Complications Fetus ID Race Codes Race Delivery Type Kinsle y false [id number] [id number] F [id number] C/S ( Section) Problems Problem Notes KevinDeliver at H: RLTCS scheduled 10/24/24 DILATE CERVIX AT CSECTION Pediatrition in [place] (unsure of name)Declines flu vaccineGirl, breast feeding, depo or nexplanonGBS negativeGS 10/04 EFW 40.2%, 2809g Problem Name Start Date End Date Resolution Snomed Code Not e Vasovagal syncope 08/06/2024 489277441 - EKG 08/04 sinus ryhtm with non specifi t wave abnormalities- Cardiology consult Dr. Mcclain 08/22- Echo 08/31 EF 62% with Trace MR Requires diphtheria, tetanus and pertussis vaccination 08/09/2024 111462364 given 08/09 Chronic anemia 08/27/2024 554755145 - Hg b 10.3 on 08/22- Iron and colace Pruritic disorder of skin 09/17/2024 6996789551 - Bile acids of 4.1 Polyp of vagina 10/06/2024 04489410 - 2 -3 mm vaginal polyp at edge of cervix and vagina at 6 oclock position Anxiety 61377027 - no meds Nausea and vomiting in 10/04/2024 2265604438 Reglan 5 mg pO Q6H PRN RhD negative 04/21/2024 666642422 - Rhog am given 04/21- Rhogam @ 28 weeks, given 08/09- RH studies PP Past history of section 06/30/2024 282289015 - delivery 18 months ago in [facility] confirmed with ROMR to be LTCS at 39w3d 08/07 arrest of dilation with cervical stenosis- ROMR reviewed- RLTCS scheduled [facility] for 10/24/2024 Dipping 915790421 - Tobacco cessation advised History of loop electrosurgical excision procedure 31262621393895 - CXL s creenig Q2w at 16-24w: CXL 3.24 on 05/17, CXL 3.62cm on 05/27, CXL 3.79cm on 06/10, CXL 25.5 cm on 06/22, referred to MFM- severe cervical scaring on physical exam- Pap 02/10/2024 neg cytology, neg HRHPV- MFM apt 06/30 CXL 25.5-24, no cerclage, started on vaginal progesterone Normal body mass index 68437651 PPBMI 27 Placenta previa with hemorrhage 425682567 noted on u/s 04/26Marginal previa 05/17 at 1.6-2cm from [facility] 05/27 Disorder of placenta 313781430 Anterior placenta Fabiano Calculation Initial Fabiano Date [...] Weight in lbs Pre/Post Dialysis Refused Weight 162.700268886815 BP Diastolic BP Location Tested BP Systolic [...] studies . Patient was advised to notify MANAGER PROCUREMENT immediately of any vaginal bleeding or spotting. [...] weeks of .7. History of section in [place] with her last secondary to failure to progress beyond 3 cm dilation. Patient states she was told this occurred secondary to her prior to LEEP procedures and cervical scarring. Discussed with patient's risks and benefits of repeat section versus TOLAC. All patient's questions were answered to her satisfaction. She is considering TOLAC at this time. Release of medical records was signed for her [place] [facility] and delivery for review.8. Intermittent nausea [...] scheduled, dental letter given. Flowsheet Date 04/01/2024 Durna Score Blood Edema Fundus Height Fundus Units Glucose Ketones Leukocytes Nitrite Labor Signs Protein Cervic Dilation Cervic Effacement Cervic Station none none none neg Type Weight in lbs Pre/Post Dialysis Refused 160.271288302699 BP Diastolic BP Location Tested BP Systolic [...] in lbs Pre/Post Dialysis Refused With clothes 164.504073235658 BP Diastolic BP Location Tested BP Systolic [...] next visit. 3. History of section in [place] with her last secondary to failure to progress beyond 3 cm dilation. ROMR still pending. Flowsheet Date 05/17/2024 Duran Score Blood Edema Fundus Height Fundus Units Glucose Ketones Leukocytes Nitrite Labor Signs Protein Cervic Dilation Cervic Effacement Cervic Station none none none neg Type Weight in lbs Pre/Post Dialysis Refused 168.987524581508 BP Diastolic BP Location Tested BP Systolic [...] CXL 3.24cm. 3. History of section in [place] with her last secondary to failure to [...] for placenta next visit. Flowsheet Date 05/27/2024 Duarn Score Blood Edema Fundus Height Fundus Units Glucose Ketones Leukocytes Nitrite Labor Signs Protein Cervic Dilation Cervic Effacement Cervic Station none none none neg 0cm 0% -4 Type Weight in lbs Pre/Post Dialysis Refused Dry 170.778168139650 BP Diastolic BP Location Tested BP Systolic [...] 24 weeks. 3. History of section in [place] with her last at 39w3d due to [...] Type Weight in lbs Pre/Post Dialysis Refused 173.051378001950 BP Diastolic BP Location Tested BP Systolic [...] 24 weeks. 3. History of section in [place] with her last secondary to failure to [...] Weight in lbs Pre/Post Dialysis Refused Weight 174.125149742328 BP Diastolic BP Location Tested BP Systolic [...] case was discussed with Dr. Neri or [facility] who will see patient next week in outpatient consultation. Pelvic rest and strict precautions were given. Patient was advised to go to the hospital immediately with signs or symptoms of labor. Patient voiced understanding. 3. History of section in [place] with her last secondary to failure to progress beyond 3 cm dilation. Patient desires to proceed with scheduling repeat section but would like to [place] if she presents to labor and delivery with spontaneous cervical dilation. Request form for repeat at [facility] for 39 weeks was placed today. 4. Intermittent maternal tachycardia: Improved. Flowsheet Date 07/08/2024 Duran Score Blood Edema Fundus Height Fundus Units Glucose Ketones Leukocytes Nitrite Labor Signs Protein Cervic Dilation Cervic Effacement Cervic Station none none none neg Type Weight in lbs Pre/Post Dialysis Refused 176.049583240154 BP Diastolic BP Location Tested BP Systolic [...] no funneling noted. Patient was seen by [facility] on 06/30 with CXL ultrasound noted to [...] voiced understanding. 3. History of section in [place] with her last secondary to failure to progress beyond 3 cm dilation. Patient desires to proceed with scheduling repeat section but would like to TOLAC if she presents to labor and delivery with spontaneous cervical dilation. Repeat scheduled at [facility] for 39 weeks on 10/24/2024. Flowsheet Date 08/05/2024 Duran Score Blood Edema Fundus Height Fundus Units Glucose Ketones Leukocytes Nitrite Labor Signs Protein Cervic Dilation Cervic Effacement Cervic Station none 27 cm none Pressure neg 0cm 0% - 4 Type Weight in lbs Pre/Post Dialysis Refused 182.576224542054 BP Diastolic BP Location Tested BP Systolic [...] voiced understanding. 3. History of section in [place] with her last secondary to failure to progress beyond 3 cm dilation. Repeat scheduled at [facility] for 39 weeks on 10/24/2024.4. Vasovagal episodes [...] Type Weight in lbs Pre/Post Dialysis Refused 192.816464751446 BP Diastolic BP Location Tested BP Systolic [...] in lbs Pre/Post Dialysis Refused With clothes 186.565865189462 BP Diastolic BP Location Tested BP Systolic BP Type 70 L arm 120 sitting Fetus Heart Rate Present Fetus Movement Comments Flowsheet Date 08/25/2024 Duarn Score Blood Edema Fundus Height Fundus Units Glucose Ketones Leukocytes Nitrite Labor Signs Protein Cervic Dilation Cervic Effacement Cervic Station none 30 cm none none neg 0cm 0% -4 Type Weight in lbs Pre/Post Dialysis Refused 190.130757273337 BP Diastolic BP Location Tested BP Systolic [...] Weight in lbs Pre/Post Dialysis Refused Dry 191.971809535468 BP Diastolic BP Location Tested BP Systolic [...] pruritus improved, bile acids on 08/25 of 4.1. Patient denies pruritus on hands and soles. Flowsheet Date 09/20/2024 Duran Score Blood Edema Fundus Height Fundus Units Glucose Ketones Leukocytes Nitrite Labor Signs Protein Cervic Dilation Cervic Effacement Cervic Station none 34 cm none none neg Type Weight in lbs Pre/Post Dialysis Refused 191.310133026782 BP Diastolic BP Location Tested BP Systolic [...] Type Weight in lbs Pre/Post Dialysis Refused 193.640143781634 BP Diastolic BP Location Tested BP Systolic [...] Weight in lbs Pre/Post Dialysis Refused Dry 190.565276862045 BP Diastolic BP Location Tested BP Systolic [...] Weight in lbs Pre/Post Dialysis Refused Dry 192.692913939602 BP Diastolic BP Location Tested BP Systolic [...] Type Weight in lbs Pre/Post Dialysis Refused 193.825647035942 BP Diastolic BP Location Tested BP Systolic BP Type 86 128 Fetus Heart Rate Present A 130 Present Fetus Movement A Yes Comments #171.LAURI: Patient complains of intermittent contractions. Cervix is closed/long/high. Patient has no other OB complaints. Continue PNV QD. Strict labor precautions and strict kick counts were given. RTC in 1 week for incision check from 10/[address] [facility] or sooner if needed. Flowsheet Date 11/01/2024 Duran Score Blood Edema Fundus Height Fundus Units Glucose Ketones Leukocytes Nitrite Labor Signs Protein Cervic Dilation Cervic Effacement Cervic Station Type Weight in lbs Pre/Post Dialysis Refused Weight 178.754791958200 BP Diastolic BP Location Tested BP Systolic BP Type 76 112 Fetus Heart Rate Present Fetus Movement Comments Flowsheet Date 12/08/2024 Duran Score Blood Edema Fundus Height Fundus Units Glucose Ketones Leukocytes Nitrite Labor Signs Protein Cervic Dilation Cervic Effacement Cervic Station Type Weight in lbs Pre/Post Dialysis Refused Dry 167.729200383809 BP Diastolic BP Location Tested BP Systolic BP Type 78 122 Fetus Heart Rate Present Fetus Movement Comments Menstrual History Last Menstrual Date Menses Monthly On Bcp Conception Prior Menses Frequency Hcg Plus Date Menarche Onset Age 0701/23/2024 true true 28 16 Genetic Screening And Infection History Question Response Note Patient's Age Will Be 35 Yea rs Or Older At Estimated Date of Delivery false Thalassemia (Burkinan, Turks And Caicos Islander, Mediterranean, Or Background): MCV < 80 false Neural Tube Defect (Meningom yelocele, Spina Bifida, Or Anencephaly) false Congenital Heart Defect false Down Syndrome false Sukhjinder-Sachs (eg, Baptism, Cajun, Turkmen-Guamanian) f alse Margie Disease false Sickle Cell Disease Or Trait () false Hemophilia Or Other Blood Disorders false Muscular Dystrophy false Cystic Fibrosis false Curry's Chorea false Intellectual Disability/Autism false If Yes, [...] 03/13/2024 Avoidance of saunas or hot tubs [facility] 03/13/2024 Screening for aneuploidy [facility] 03/13/2024 Intimate partner violence [facility] 03/13/2024 HIV and other routine tests [facility] 03/13/2024 Weight gain counseling [facility] 03/13/2024 Environmental/work hazards s [facility] 03/13/2024 Illicit/recreational drugs s [facility] 03/13/2024 Indications for ultrasonography [facility] 03/13/2024 Travel [facility] 03/13/2024 Tobacco/smoking cess ation counseling (ask, advise, assess, assist, and arrange) [facility] 03/13/2024 [facility] 03/13/2024 Use of any medicatio ns (including supplements, vitamins, herbs, or OTC drugs) [facility] 03/13/2024 Seat belt use [facility] 03/13/2024 Risk factors identif ied by history [facility] 03/13/2024 Anticipated course of care [facility] 03/13/2024 Sexual activity [facility] 03/13/2024 Dental care [facility] 03/13/2024 Nutrition counseling ; special diet; dietary precautions (mercury, listeriosis) [facility] 03/13/2024 Toxoplasmosis precautions (cats/raw meat) [facility] 03/13/2024 Exercise [facility] 03/13/2024 Teratogens [facility] 03/13/2024 Alcohol [facility] 03/13/2024 Childbirth classes/hospital facilities [facility] Second Trimester Discussed Date Discussion Item Discussion Note Discuss ed By 08/09/2024 Signs and symptoms of labor [facility] 08/09/2024 Selecting a care provider [facility] 08/09/2024 Tobacco/smoking cess ation counseling (ask, advise, assess, assist, and arrange) [facility] 08/09/2024 Abnormal lab values [facility] 08/09/2024 Depression screening (when indicated) [facility] Third Trimester Discussed Date Discussion Item Discussion Note Discuss ed By 08/09/2024 Tobacco/smoking cess ation counseling (ask, advise, assess, assist, and arrange) [facility] 08/09/2024 Intimate partner violence [facility] 08/09/2024 Claude education (n ewborn screening, jaundice, SIDS/safe sleeping position, car seat) [facility] 08/09/2024 Family medical leave or disability forms [facility] Delivery Information Delivery Date Delivery Type Labor Anesthesia Weeks Gestation Incision Type Labor Labor Length Hrs Delivered By Post Complications Tubal Sterilization Discharge Date Comments 5 None [facility] 39.2 Low Transvers e false Monalisa Ramirez MD false Discharge Information Feeding Method Contraceptive Method Maternal HG B and HCT Levels Breast
[2025-05-11] MEDS: SODIUM CHLORIDE 0.9% IV 1,000 ML 999 ML IV CONT (23:39)
[2025-05-11] MEDS: ONDANSETRON INJ 4 MG/2 ML VIAL IV PUSH (23:42)
[2025-05-11] MEDS: PANTOPRAZOLE SODIUM IV 40 MG VIAL IV PUSH (23:42)
[2025-05-11 23:58] LABS: Hematocrit 36.7 % (35.0-49.0); Hemoglobin 11.5 g/dL (12.0-15.0); Immature Granulocyte Percent A 0.2 % (0.0-0.0); Lymphocytes Absolute Auto 2.07 K/mm3 (1.10-4.50); Mean Corpuscular HGB Conc 31.3 g/dL (32-36); Mean Corpuscular Hemoglobin 26.1 pg (27.0-31.0); Mean Corpuscular Volume 83.2 fL (78.0-102.0); Nucleated Red Blood Cells Absolute Auto 0.00 K/mm3 (0.00-0.00); Nucleated Red Blood Cells Perc 0.0 % (0-0.0); Platelet Count Result 318 K/mm3 (150-420); Red Blood Count 4.41 M/mm3 (4.20-5.40); White Blood Count 6.0 K/mm3 (4.8-10.8)
[2025-05-12 00:08] LABS: Alanine Aminotransferase 14 U/L (6-35); Albumin Level 3.8 g/dL (3.5-5.1); Alkaline Phosphatase 72 U/L (38-126); Anion Gap 7 mmol/L (4-12); Aspartate Amino Transferase 19 U/L (14-36); Bilirubin,Total 1.1 mg/dL (0.2-1.3); Blood Urea Nitrogen 10 mg/dL (7-17); Calcium 8.5 mg/dL (8.4-10.2); Carbon Dioxide 26 mmol/L (22-30); Chloride 109 mmol/L (98-107); Estimated CRCL calculation 89 ml/min; Estimated Glomerular Filt Rate > 60; Glucose 102 mg/dL (65-110); Lipase 80 U/L (23-300); Osmolality Calculated 293 mOsm/kg (285-295); Potassium 3.2 mmol/L (3.4-5.0); Sodium 142 mmol/L (137-145); Total Protein 6.2 g/dL (6.3-8.2)
[2025-05-12 00:10] LABS: INR 1.0; Partial Thromboplastin Time 26.9 Sec (23.9-30.70); Prothrombin Time 10.9 Seconds (9.50-12.1)
[2025-05-12 00:18] LABS: Add Urine Microscopic? NO; Appearance Urine Clear (Clear); Glucose Urine UA Negative (Negative); Leukocyte Esterase Ur Negative LEU/UL (Negative); Nitrate Urine Negative (Negative); Specific Grav Ur <= 1.005 (1.010-1.020)
[2025-05-12 00:20] LABS: Pregnancy On Board Control Positive
--- NOTE | 2025-05-12 01:11 | ED.ABDPAIN ---
HPI - Abdominal Pain General Chief Complaint: Abdominal Pain Stated Complaint: ABDOMINAL PAIN Time Seen by Provider: 05/11/25 23:25 This is a 34-year-old female with no significant past medical history presents with hip roll paired with some burning with some nausea and some diarrhea with no chest pain no shortness of breath no fever chills. Source: patient Mode of arrival: ambulatory Limitations: no limitations History of Present Illness MD elicited complaint: abdominal pain Onset (ago): hour(s) Pain Consistency: constant Location: periumbilical Severity: moderate Quality: aching and burning Related Data Allergies Allergy/AdvReac Type Severity Reaction Status Date / Time No Known Allergies Allergy Verified 05/11/25 23:21 Review of Systems Review of Systems: All systems reviewed & are unremarkable except as noted in HPI and below PMFSH Past Medical History Medical History History of cervical cancer Social History Social History Alcohol intake: current Alcohol use details: occasionally Substance use: never Living arrangements: with family Exam Const: General: healthy appearing and no acute distress Nutritional Appearance: well nourished Orientation/consciousness: patient oriented x3 Limitations: no limitations Chest: Chest palpation & inspection: normal inspection of the chest Resp: Effort & Inspection: normal respiratory effort Auscultation: clear to auscultation bilaterally Cardio: Rate: regular rate Rhythm: regular rhythm GI: GI Palp: Yes Soft to palpation Auscultation: normal bowel sounds : General: Yes bladder normal to palpation Skin: General skin exam: normal color Rashes: no rashes Neuro: General: patient oriented x3, moves all extremities, no meningeal signs and no focal motor deficits Extrem: General: normal to inspection, no clubbing, cyanosis or edema and no pedal edema Course Course Emergency Course: Medical decision making narrative: The patient was evaluated by myself in the emergency department. History obtained from the patient was independent history and physical exam performed witnessed by nurse. Patient had CT scan which showed no acute findings patient did receive IV Protonix and Zofran, blood work performed and reviewed showed no abnormalities Repeat assessment: Patient doing well on repeat exam in no acute distress Symptoms improved since arrival to the ED Repeat vitals stable Patient agrees with discussion and after shared medical decision-making and agrees with discharge vital symptoms answered patient's satisfaction. Follow-up next 3 to 5 days with primary care physician Vital Signs Vital signs: Vital Signs Temperature 36.5 C 05/11/25 23:21 Pulse Rate 98 05/11/25 23:21 Respiratory Rate 18 05/11/25 23:21 Blood Pressure 115/90 05/11/25 23:21 Pulse Oximetry 97 05/11/25 23:21 Oxygen Delivery Room Air 05/11/25 23:21 Temperature 36.5 C 05/11/25 23:21 Pulse Rate 98 05/11/25 23:21 Respiratory Rate 18 05/11/25 23:21 Blood Pressure 115/90 05/11/25 23:21 Pulse Oximetry 97 05/11/25 23:21 Oxygen Delivery Room Air 05/11/25 23:21 MDM - Abdominal Pain Lab Data 05/11/25 23:53 05/11/25 23:53 Labs: Lab Results 05/11/25 05/11/25 05/12/25 Range/Units 23:52 23:53 00:12 WBC 6.0 (4.8-10.8) K/mm3 RBC 4.41 (4.20-5.40) M/mm3 Hgb 11.5 L (12.0-15.0) g/dL Hct 36.7 (35.0-49.0) % MCV 83.2 (78.0-102.0) fL MCH 26.1 L (27.0-31.0) pg MCHC 31.3 L (32-36) g/dL RDW 13.5 (11.6-14.4) % Plt Count 318 (150-420) K/mm3 MPV 9.8 (9.2-11.8) fl Immature Gran % (Auto) 0.2 H (0.0-0.0) % Neut % (Auto) 56.1 (50.0-70.0) % Lymph % (Auto) 34.6 (18.0-42.0) % Schley % (Auto) 8.2 (2.0-11.0) % Eos % (Auto) 0.7 L (1.0-6.0) % Baso % (Auto) 0.2 (0.0-1.0) % Lymph # (Auto) 2.07 (1.10-4.50) K/mm3 Schley # (Auto) 0.49 (0.10-0.90) K/mm3 Eos # (Auto) 0.04 (0.02-0.50) K/mm3 Baso # (Auto) 0.01 (0.00-0.10) K/mm3 Abs Immat Gran (auto) 0.01 H (0.00-0.00) K/mm3 Absolute Neuts (auto) 3.36 (1.70-7.20) K/mm3 Absolute Nucleated RBC 0.00 (0.00-0.00) K/mm3 Nucleated RBC % 0.0 (0-0.0) % PT 10.9 (9.50-12.1) Seconds INR 1.0 APTT 26.9 (23.9-30.70) Sec Sodium 142 (137-145) mmol/L Potassium 3.2 L (3.4-5.0) mmol/L Chloride 109 H (98-107) mmol/L Carbon Dioxide 26 (22-30) mmol/L Anion Gap 7 (4-12) mmol/L BUN 10 (7-17) mg/dL Creatinine 0.80 (0.7-1.0) mg/dL Estim Creat Clear Calc 89 ml/min Estimated GFR > 60 (59 - ) Glucose 102 (65-110) mg/dL Calculated Osmolality 293 (285-295) mOsm/kg Lactic Acid 0.8 (0.7-2.0) mmol/L Calcium 8.5 (8.4-10.2) mg/dL Total Bilirubin 1.1 (0.2-1.3) mg/dL AST 19 (14-36) U/L ALT 14 (6-35) U/L Alkaline Phosphatase 72 (38-126) U/L Total Protein 6.2 L (6.3-8.2) g/dL Albumin 3.8 (3.5-5.1) g/dL Lipase 80 (23-300) U/L Urine Color Light yellow (Yellow) Urine Appearance Clear (Clear) Urine pH 6.0 (5.0-8.0) Ur Specific [place] <= 1.005 L (1.010-1.020) Urine Protein Negative (Negative) Urine Glucose (UA) Negative (Negative) Urine Ketones Negative (Negative) Ur Blood (Man) Trace-intact H (Negative) Urine Nitrate Negative (Negative) Urine Bilirubin Negative (Negative) Urine Urobilinogen 0.2 (0.2-1.0) mg/dL Leukocyte Esterase Rfl Negative (Negative) DELMY/UL Urine Test 05/12/25 Range/Units 00:13 WBC (4.8-10.8) K/mm3 RBC (4.20-5.40) M/mm3 Hgb (12.0-15.0) g/dL Hct (35.0-49.0) % MCV (78.0-102.0) fL MCH (27.0-31.0) pg MCHC (32-36) g/dL RDW (11.6-14.4) % Plt Count (150-420) K/mm3 MPV (9.2-11.8) fl Immature Gran % (Auto) (0.0-0.0) % Neut % (Auto) (50.0-70.0) % Lymph % (Auto) (18.0-42.0) % Schley % (Auto) (2.0-11.0) % Eos % (Auto) (1.0-6.0) % Baso % (Auto) (0.0-1.0) % Lymph # (Auto) (1.10-4.50) K/mm3 Schley # (Auto) (0.10-0.90) K/mm3 Eos # (Auto) (0.02-0.50) K/mm3 Baso # (Auto) (0.00-0.10) K/mm3 Abs Immat Gran (auto) (0.00-0.00) K/mm3 Absolute Neuts (auto) (1.70-7.20) K/mm3 Absolute Nucleated RBC (0.00-0.00) K/mm3 Nucleated RBC % (0-0.0) % PT (9.50-12.1) Seconds INR APTT (23.9-30.70) Sec Sodium (137-145) mmol/L Potassium (3.4-5.0) mmol/L Chloride (98-107) mmol/L Carbon Dioxide (22-30) mmol/L Anion Gap (4-12) mmol/L BUN (7-17) mg/dL Creatinine (0.7-1.0) mg/dL Estim Creat Clear Calc ml/min Estimated GFR (59 - ) Glucose (65-110) mg/dL Calculated Osmolality (285-295) mOsm/kg Lactic Acid (0.7-2.0) mmol/L Calcium (8.4-10.2) mg/dL Total Bilirubin (0.2-1.3) mg/dL AST (14-36) U/L ALT (6-35) U/L Alkaline Phosphatase (38-126) U/L Total Protein (6.3-8.2) g/dL Albumin (3.5-5.1) g/dL Lipase (23-300) U/L Urine Color (Yellow) Urine Appearance (Clear) Urine pH (5.0-8.0) Ur Specific [place] (1.010-1.020) Urine Protein (Negative) Urine Glucose (UA) (Negative) Urine Ketones (Negative) Ur Blood (Man) (Negative) Urine Nitrate (Negative) Urine Bilirubin (Negative) Urine Urobilinogen (0.2-1.0) mg/dL Leukocyte Esterase Rfl (Negative) DELMY/UL Urine Test Negative Critical Care Time Critical Care Time Critical Care Time: No Discharge Plan Discharge Clinical Impression: Gastroenteritis Patient Disposition: Home Condition: Stable Instructions: Antibiotic Form, Gastroenteritis (ED) Additional Instructions: Advised patient to follow-up with primary care physician take medicine as prescribed. Patient Language: Occitan Prescriptions: New pantoprazole [Protonix] 40 mg tablet,delayed release (DR/EC) 40 mg PO QAM 28 Days Qty: 28 0RF ondansetron 4 mg tablet,disintegrating 4 mg PO Q6H PRN (Reason: nausea and vomiting) Qty: 10 0RF No Action dicloxacillin 500 mg capsule 500 mg PO Q6H Qty: 40 0RF Follow-up/Referrals: Jonathan,ZACHARIAH Nieto [Primary Care Provider] Time of Disposition: 01:15
[2025-05-12] MEDS: POTASSIUM BICARBONATE 25 MEQ TABEF 50 MEQ PO (01:21)
[2025-05-12 01:30] VITALS: BP 117/78; PULSE 74; RESP 18; TEMP 36.6; O2SAT 100
== END 2025-05-12 01:30 | disposition home or self-care (01) ==
PROVIDERS: Emergency Provider Emergency Medicine; PCP Physician Assistant
DX: K52.9 Noninfective gastroenteritis and colitis, unspecified (principal)
CPT/HCPCS: 36415; 74177; 80053; 81003; 81025; 83605; 83690; 85025; 85610; 85730; 96361; 96374; 96375; 99284; A9270; J2405; J2470; J7030; Q9967